=== PATIENT | female | born 1945 | race Caucasian/White ===

== ENCOUNTER 2016-12-13 16:20 | Inpatient (IN) ==
[2016-12-13] MEDS ORDERED: 0.9 % Sodium Chloride 500 ML IV ONE (16:30)
--- NOTE | 2016-12-13 17:06 | Emergency Department Note ---
Disposition Clinical Impression: Anemia, DKA (diabetic ketoacidoses), GI bleed Disposition: Admitted As Inpatient Condition: Serious Time of Disposition: 17:55 SOB HPI - General Chief Complaint: ED Nausea/Vomiting/Diarrhea Stated Complaint: Hyperglycemia / N/V/D Time Seen by Provider: 12/13/16 16:27 Source: patient, EMS Mode of arrival: ambulatory Limitations: no limitations Nursing Notes Reviewed: Yes Vital Signs Reviewed: Yes - History of Present Illness 71-year-old female with history of metastatic breast cancer presents from Dr. Lyn at the cancer center with shortness of breath and low hemoglobin. She reportedly had a significant episode of epistaxis which lasted about 5 hours and resolved at home without evaluation 5 days ago. Since then, the patient has been very weak and short of breath. She denies any headache or confusion, syncope, chest pain, abdominal pain, change in urination. She does note dark stools, but believes that this is due to iron supplementation. She notes that she had a normal colonoscopy within the last [address] Santos. Her son states that she has been very weak over the last few days, but has refused to come in for evaluation. She also has been very short of breath, but told him that she did not want to tell her doctor about it because he might try to put her on oxygen. Pt Subjective Complaint: shortness of breath - Related Data Home Medications Medication Instructions Recorded Confirmed Albuterol Sulfate [Proair HFA] 2 puff IH Q6HR PRN 06/12/15 12/13/16 Amlodipine Besylate [Norvasc] 5 mg PO DAILY 06/12/15 12/13/16 Atorvastatin [Lipitor] 40 mg PO HS 06/12/15 12/13/16 GlyBURIDE [Diabeta] 5 mg PO BID 06/12/15 12/13/16 LevETIRAcetam [Keppra] 500 mg PO BID 06/12/15 12/13/16 Metformin HCl [Glucophage] 500 mg PO DAILY 06/12/15 12/13/16 Omeprazole [PriLOSEC] 20 mg PO DAILY 06/12/15 12/13/16 Ondansetron HCl [Zofran] 8 mg PO Q8H PRN 06/12/15 12/13/16 Sertraline HCl [Zoloft] 150 mg PO DAILY 06/12/15 12/13/16 Triamterene/Hydrochlorothiazid 1 each PO DAILY 06/12/15 12/13/16 [Dyazide 37.5-25 Capsule] Warfarin [Coumadin] 5 mg PO 1800 06/12/15 12/13/16 Anastrozole [Arimidex] 1 mg PO DAILY 12/13/16 12/13/16 Dexamethasone [Decadron] 8 mg PO BID 12/13/16 12/13/16 Ferrous Sulfate 325 mg PO DAILY 12/13/16 12/13/16 Previous Rx's Medication Instructions Recorded Denosumab [Xgeva] 120 mg SQ AD #6 / 06/22/15 Cyanocobalamin (Vitamin B-12) 1,000 mcg PO DAILY #90 tablet 02/09/16 [Vitamin B-12] Meclizine [Antivert] 25 mg PO TID PRN #30 tablet 02/29/16 Budesonide/Formoterol 160/4.5 1 puff IH BIDR #3 hfa.aer.ad 05/19/16 [Symbicort 160/4.5] LORazepam [Ativan] 1 mg PO Q6H PRN #60 tablet 05/19/16 Cholecalciferol (D-3) [Vitamin D] 1,000 unit PO DAILY #90 tablet 06/22/16 GuaiFENesin/Dextromethorphan 5 ml PO Q4HR PRN #250 ml 07/29/16 [Robitussin/DM] Calcium Carbonate/Vitamin D3 2 each PO DAILY #180 tablet 09/29/16 [Calcium 600-Vit D3 800 Tablet] Benzonatate [Tessalon] 100 mg PO TID #90 capsule 11/14/16 Folic Acid 1 mg PO DAILY #90 tablet 11/14/16 OxyCODONE/APAP 10/325 [Percocet 1 - 2 each PO Q4HR PRN #120 tablet 12/06/16 10/325 MG] Allergies Allergy/AdvReac Type Severity Reaction Status Date / Time Cephalosporins Allergy See Verified 06/21/16 07:28 Comments codeine Allergy See Verified 06/21/16 07:28 Comments lisinopril Allergy See Verified 06/21/16 07:28 Comments metoclopramide [From Reglan] Allergy Confusion Verified 06/21/16 07:28 Penicillins Allergy Hives Verified 06/21/16 07:28 Sulfa (Sulfonamide Allergy See Verified 06/21/16 07:28 Antibiotics) Comments All systems ED: reviewed and negative except as stated. Past Medical History - Past Medical History Attestation: Yes The following information was validated with the patient. Source: patient Medical history: Reports: cancer, diabetes, hypertension Surgical history: Reports: appendectomy, cholecystectomy, hysterectomy, orthopedic, other, YANET/BSO Psychiatric history: Reports: no psych history MANAGER CABLE history: Reports: no MANAGER CABLE history - Social History Smoking Status: Former smoker Smokeless Tobacco Status: No Alcohol use: Reports: none Drug use: Reports: none Physical Exam - Head Head exam: atraumatic, normocephalic, normal inspection - Eye Eye exam: Present: conjunctival pallor, PERRL, EOMI - ENT ENT exam: normal exam, normal oropharynx, mucous membranes moist - Neck Neck exam: Present: normal inspection, full ROM, trachea midline - Chest Chest inspection: Present: normal inspection, symmetric chest wall rise - Respiratory Respiratory exam: Clear to auscultation bilaterally without wheezes rales or rhonchi Cardiovascular Cardiovascular exam: Present: Tachycardic at 100-110, normal rhythm, normal heart sounds - Abdominal Exam Abdominal exam: Present: soft, Non-Tender. Absent: tenderness, distention, guarding, rebound, rigidity Stool dark. - Extremities Exam Extremities exam: Present: normal inspection, full ROM - Expanded Lower Extremity Exam Hip/Pelvis exam: Present: normal inspection, full ROM - Back Exam Back exam: Present: normal inspection, full ROM. Absent: tenderness, CVA tenderness (R), CVA tenderness (L) - Neurological Exam Neurological exam: Present: alert, oriented X3, CN II-XII intact - Psychiatric Psychiatric exam: Present: normal affect, normal mood - Skin Skin exam: Present: warm, dry, intact, normal color - General Limitations: no limitations General appearance: alert Course - Reevaluation(s) Reevaluation #1: Notified by oncologist protein purification scientist Dr. Keyes of elevated outpatient INR of 4.9. I notified her of the patient's melanotic stool and low hemoglobin. She requested that I give the patient cryoprecipitate. We will also give vitamin K along with the pRBCs. Time: 17:29 Reevaluation #2: Patient in DKA with appropriate respiratory compensation. Given the patient is receiving blood products we will proceed with cautious fluid administration along with insulin drip. We do not wish to place the patient into congestive heart failure. I discussed the patient's condition with her and her son. They agree that the patient is not to be placed on a ventilator under any circumstances. They do state that she could have CPR if indicated. Time: 17:52 Reevaluation #3: Accepted by Dr. Gonzalez. Time: 18:28 Vital Signs Temperature 97.8 F 12/13/16 16:29 Pulse Rate 115 12/13/16 16:29 Respiratory Rate 20 12/13/16 16:29 Blood Pressure 148/69 12/13/16 16:29 O2 Sat by Pulse Oximetry 100 12/13/16 16:29 Temperature 97.5 F L 12/13/16 18:17 Pulse Rate 121 12/13/16 18:17 Respiratory Rate 20 12/13/16 18:17 Blood Pressure 122/55 12/13/16 18:17 O2 Sat by Pulse Oximetry 100 12/13/16 18:02 Oxygen Delivery Oxygen Delivery Room Air Shortness of Breath/Dyspnea - Lab Data Result diagrams: 12/13/16 17:10 12/13/16 17:10 Lab Results 12/13/16 12/13/16 12/13/16 Range/Units 15:49 16:36 17:10 WBC 17.6 H (4.3-11.1) K/mcL RBC 1.29 L (3.82-4.97) M/mcL Hgb 3.7 L* (11.5-15.4) g/dL Hct 11.8 L* (35.3-44.9) % MCV 91.5 (83.0-100.0) fL MCH 28.7 (28.0-33.3) pg MCHC 31.4 L (31.6-35.5) g/dL RDW 22.9 H (11.5-14.5) % Plt Count 260 (140-400) K/mcL MPV 10.3 (9.4-12.4) fL Seg Neutrophils % 92.0 % Lymphocytes % 2.0 % Monocytes % 6.0 % Neutrophils # 16.2 H (1.6-8.9) K/mcL Lymphocytes # 0.4 L (0.6-4.6) K/mcL Monocytes # 1.1 (0.0-1.3) K/mcL Polychromasia 1+ A (Not Present) Anisocytosis 2+ A (Not Present) Microcytosis Present A (Not Present) VBG pH (7.32-7.42) pH Units VBG pCO2 (41-51) mmHg VBG pO2 (25-40) mmHg VBG HCO3 (21-27) mEq/L Sodium (136-145) mEq/L Potassium (3.5-4.5) mEq/L Chloride (98-109) mEq/L Carbon Dioxide (19-29) mEq/L BUN (7-20) mg/dL Creatinine (0.57-1.11) mg/dL Est GFR ( Amer) (> 60) Est GFR (Non-Af Amer) (> 60) BUN/Creatinine Ratio (6-26) Glucose (70-99) mg/dL Calculated Osmolality (280-300) Calcium (8.6-10.8) mg/dL Troponin I (0-0.03) ng/mL B-Natriuretic Peptide (0-100) pg/mL Beta-Hydroxybutyric Acd (0.02-0.27) mmol/L Urine Color (Yellow) Urine Clarity (Clear) Urine pH (5.0-8.0) pH Units Ur Specific [place] (1.010-1.025) Urine Protein (Neg-Trace) mg/dL Urine Glucose (UA) (Normal) mg/dL Urine Ketones (Negative) mg/dL Urine Blood (Negative) Urine Nitrite (Negative) Urine Bilirubin (Negative) Urine Urobilinogen (Normal) mg/dL Ur Leukocyte Esterase (Negative) Ur Culture Indicated? (NO) Stool Occult Blood Positive A (Negative) Crossmatch See Detail 12/13/16 12/13/16 12/13/16 Range/Units 17:10 17:10 17:10 WBC (4.3-11.1) K/mcL RBC (3.82-4.97) M/mcL Hgb (11.5-15.4) g/dL Hct (35.3-44.9) % MCV (83.0-100.0) fL MCH (28.0-33.3) pg MCHC (31.6-35.5) g/dL RDW (11.5-14.5) % Plt Count (140-400) K/mcL MPV (9.4-12.4) fL Seg Neutrophils % % Lymphocytes % % Monocytes % % Neutrophils # (1.6-8.9) K/mcL Lymphocytes # (0.6-4.6) K/mcL Monocytes # (0.0-1.3) K/mcL Polychromasia (Not Present) Anisocytosis (Not Present) Microcytosis (Not Present) VBG pH (7.32-7.42) pH Units VBG pCO2 (41-51) mmHg VBG pO2 (25-40) mmHg VBG HCO3 (21-27) mEq/L Sodium 129 L (136-145) mEq/L Potassium 3.4 L (3.5-4.5) mEq/L Chloride 94 L (98-109) mEq/L Carbon Dioxide 12 L (19-29) mEq/L BUN 33 H (7-20) mg/dL Creatinine 1.20 H (0.57-1.11) mg/dL Est GFR ( Amer) 53 L (> 60) Est GFR (Non-Af Amer) 44 L (> 60) BUN/Creatinine Ratio 28 H (6-26) Glucose 614 H* (70-99) mg/dL Calculated Osmolality 304 H (280-300) Calcium 8.5 L (8.6-10.8) mg/dL Troponin I 0.07 H* (0-0.03) ng/mL B-Natriuretic Peptide 583 H (0-100) pg/mL Beta-Hydroxybutyric Acd (0.02-0.27) mmol/L Urine Color (Yellow) Urine Clarity (Clear) Urine pH (5.0-8.0) pH Units Ur Specific [place] (1.010-1.025) Urine Protein (Neg-Trace) mg/dL Urine Glucose (UA) (Normal) mg/dL Urine Ketones (Negative) mg/dL Urine Blood (Negative) Urine Nitrite (Negative) Urine Bilirubin (Negative) Urine Urobilinogen (Normal) mg/dL Ur Leukocyte Esterase (Negative) Ur Culture Indicated? (NO) Stool Occult Blood (Negative) Crossmatch 12/13/16 12/13/16 12/13/16 Range/Units 17:10 17:10 17:23 WBC (4.3-11.1) K/mcL RBC (3.82-4.97) M/mcL Hgb (11.5-15.4) g/dL Hct (35.3-44.9) % MCV (83.0-100.0) fL MCH (28.0-33.3) pg MCHC (31.6-35.5) g/dL RDW (11.5-14.5) % Plt Count (140-400) K/mcL MPV (9.4-12.4) fL Seg Neutrophils % % Lymphocytes % % Monocytes % % Neutrophils # (1.6-8.9) K/mcL Lymphocytes # (0.6-4.6) K/mcL Monocytes # (0.0-1.3) K/mcL Polychromasia (Not Present) Anisocytosis (Not Present) Microcytosis (Not Present) VBG pH 7.33 (7.32-7.42) pH Units VBG pCO2 28 L (41-51) mmHg VBG pO2 70 H (25-40) mmHg VBG HCO3 14.8 L (21-27) mEq/L Sodium (136-145) mEq/L Potassium (3.5-4.5) mEq/L Chloride (98-109) mEq/L Carbon Dioxide (19-29) mEq/L BUN (7-20) mg/dL Creatinine (0.57-1.11) mg/dL Est GFR ( Amer) (> 60) Est GFR (Non-Af Amer) (> 60) BUN/Creatinine Ratio (6-26) Glucose (70-99) mg/dL Calculated Osmolality (280-300) Calcium (8.6-10.8) mg/dL Troponin I (0-0.03) ng/mL B-Natriuretic Peptide (0-100) pg/mL Beta-Hydroxybutyric Acd 0.44 H (0.02-0.27) mmol/L Urine Color Yellow (Yellow) Urine Clarity Clear (Clear) Urine pH 5.0 (5.0-8.0) pH Units Ur Specific [place] 1.021 (1.010-1.025) Urine Protein Negative (Neg-Trace) mg/dL Urine Glucose (UA) >=1000 H (Normal) mg/dL Urine Ketones Negative (Negative) mg/dL Urine Blood Negative (Negative) Urine Nitrite Negative (Negative) Urine Bilirubin Negative (Negative) Urine Urobilinogen Normal (Normal) mg/dL Ur Leukocyte Esterase Negative (Negative) Ur Culture Indicated? NO (NO) Stool Occult Blood (Negative) Crossmatch - EKG Data EKG attestation: Yes I reviewed and interpreted this EKG. EKG results narrative: Atrial fibrillation at 114 with normal axis. There is diffuse ST depression without any elevation. No old EKG available. Critical Care Time Critical Care Time: Yes Total Critical Care Time: 40 Attestation: Critical care performed: Time is exclusive of separately billable procedures. Time includes: direct patient care, patient reassessment, coordination of patient care, interpretation of data (laboratory data, radiology data, and respiratory data), review of patient's medical records, medical consultation and documentation of patient care. Procedures included in critical care time: Procedures excluded from critical care time: Attestation Statement - Attestation Attestation: I examined this patient and my medical decision-making was reviewed with the MECHANICAL ENGINEERING TECHNOLOGIST/PA/Advanced Practice Nurse/Resident Physician. I agree with the documented findings, disposition and treatment plan as described except to the extent set forth below. Patient presents to the emergency department complaining of shortness of breath. She was sent over from the cancer center. Just on to have a low hemoglobin and a high INR there. Patient currently being treated for lung cancer. She is on Coumadin for A. fib. On exam she is awake and alert. Tachypneic and appears short of breath. Lungs clear. Abdomen soft. She has a port in the left upper chest. Pale conjunctiva. Plan. Type and cross and transfuse. Rectal exam shows black stool. Hemoccult still pending at this time. Admission. Patient with GI bleed and Hemoccult-positive stools. Blood is being transfused at this time. Hemoptic is requesting PCC. Insulin drip ordered as well for DKA. Patient admitted to medicine.
[2016-12-13 17:24] LABS: VBG HCO3 14.8 mEq/L (21-27); VBG PH 7.33 pH Units (7.32-7.42)
[2016-12-13 17:28] LABS: Mean Corpuscular HGB Conc 31.4 g/dL (31.6-35.5); Mean Corpuscular Hemoglobin 28.7 pg (28.0-33.3); Mean Corpuscular Volume 91.5 fL (83.0-100.0); Mean Platelet Volume 10.3 fL (9.4-12.4); Platelet Count 260 K/mcL (140-400); Red Blood Count 1.29 M/mcL (3.82-4.97); Red Cell Distribution Width 22.9 % (11.5-14.5)
[2016-12-13 17:29] LABS: Bilirubin,Urine Negative (Negative); Blood,Urine Negative (Negative); Clarity,Urine Clear (Clear); Color,Urine Yellow (Yellow); Glucose,Urine (UA) >=1000 mg/dL (Normal); Ketones,Urine Negative (Negative); Leukocyte Esterase,Urine Negative (Negative); Nitrite,Urine Negative (Negative); Protein,Urine Negative (Neg-Trace); Specific Gravity,Urine 1.021 (1.010-1.025); Urobilinogen,Urine Normal (Normal)
[2016-12-13 17:31] LABS: Hematocrit 11.8 % (35.3-44.9); Hemoglobin 3.7 g/dL (11.5-15.4)
[2016-12-13 17:39] LABS: Calcium 8.5 mg/dL (8.6-10.8); Potassium 3.4 mEq/L (3.5-4.5)
[2016-12-13] MEDS ORDERED: *HR* Phytonadione 10 MG/ML AMPUL SQ ONE (17:41)
[2016-12-13 17:45] LABS: Neutrophils # 16.2 K/mcL (1.6-8.9)
[2016-12-13 17:47] LABS: Lymphocytes # 0.4 K/mcL (0.6-4.6); Monocytes # 1.1 K/mcL (0.0-1.3)
[2016-12-13 17:48] LABS: Anisocytosis 2+ (Not Present); Microcytosis Present (Not Present); Polychromasia 1+ (Not Present)
[2016-12-13] MEDS ORDERED: *HR* Dextrose 50 % in Water (Syg) 50 ML SYRINGE IVP PRN (17:49)
[2016-12-13] MEDS ORDERED: 0.9 % Sodium Chloride 250 ML ONE (17:53)
[2016-12-13] MEDS ORDERED: Insulin Human Regular 100 UNIT in 0.9 % Sodium Chloride 100 ML IVC SCH (18:00)
[2016-12-13] MEDS ORDERED: 0.45 % Sodium Chloride w/KCl 20 MEQ/1,000 ML MLS IVC SCH (18:45)
[2016-12-13] MEDS ORDERED: Pantoprazole 40 MG VIAL IVP ONE (18:59)
[2016-12-13] MEDS ORDERED: Ondansetron 4 MG/2 ML VIAL IVP PRN (19:35)
[2016-12-13] MEDS ORDERED: Acetaminophen 650 MG RECTAL SUPP RC PRN (19:35)
[2016-12-13] MEDS ORDERED: Mag Hydrox/Al Hydrox/Simeth 30 ML UDC PO PRN (19:35)
[2016-12-13] MEDS ORDERED: *HR* OxyCODONE Immed Rel 5 MG TABLET PO PRN (19:35)
[2016-12-13] MEDS ORDERED: Pantoprazole 40 MG VIAL IVP STA (19:35)
[2016-12-13] MEDS ORDERED: *HR* LORazepam 2 MG/ML VIAL IVP PRN (19:35)
[2016-12-13] MEDS ORDERED: *HR* Morphine 2 MG/ML SYRINGE IVP PRN (19:35)
[2016-12-13] MEDS ORDERED: Acetaminophen 325 MG TABLET PO PRN (19:35)
[2016-12-13] MEDS ORDERED: Naloxone 0.4 MG/ML INJ IVP PRN ×2 (19:35)
[2016-12-13] MEDS ORDERED: Octreotide 50 MCG/ML SYRINGE IVP ONE (19:35)
[2016-12-13] MEDS ORDERED: D5% in 0.45% NACL 1,000 ML IVC PRN (20:05)
[2016-12-13] MEDS ORDERED: Albuterol 2.5 MG/3 ML NEBULIZER IH PRN (20:05)
[2016-12-13] MEDS ORDERED: Insulin Regular, Human 100 UNIT/ML IV PRN ×2 (20:05)
[2016-12-13] MEDS ORDERED: 0.9 % Sodium Chloride w KCl 20 MEQ/1,000 ML MLS IVC PRN ×2 (20:15)
--- NOTE | 2016-12-13 20:23 | Internal Med History&Physical ---
Date of Encounter: 12/13/16 Time of Encounter: 19:00 Assessment and Plan (1) Acute blood loss anemia Status: Acute . (2) Symptomatic anemia Status: Acute . (3) Hyperosmolar non-ketotic state in patient with type 2 diabetes mellitus Status: Resolved . (4) Acute hyperglycemia Status: Acute . (5) Coumadin toxicity Status: Resolved . Qualifiers: Encounter type: initial encounter Injury intent: accidental or unintentional Qualified Code(s): T45.511A - Poisoning by anticoagulants, accidental (unintentional), initial encounter (6) Severe epistaxis Status: Acute . (7) Metastatic breast cancer Status: Chronic . (8) Cancer related pain Status: Chronic . (9) Acute kidney injury superimposed on CKD Status: Acute . (10) Systemic inflammatory response syndrome (SIRS) associated with organ dysfunction Status: Acute . (11) Demand ischemia of myocardium Status: Acute . (12) Ischemia due to increased oxygen demand Status: Acute . (13) Antiphospholipid antibody syndrome Status: Chronic . (14) Bone metastases Status: Chronic . (15) COPD (chronic obstructive pulmonary disease) Status: Chronic .. Qualifiers: COPD type: unspecified COPD Qualified Code(s): J44.9 - Chronic obstructive pulmonary disease, unspecified Internal Medicine - H&P: HPI Chief complaint: Symptomatic acute blood loss anemia Admitted From: Emergency Dept Plans for Post Hospital Care: Home History of present illness: Ms. Mars is a 71 year old female with significant history of metastatic non- small cell lung carcinoma to bone+biologic palliative therapy(Xgeva)+carboplatin +Alimta+palliative radiation to hips/RUL mass/ with synchronous right-sided breast cancer (grade 1 invasive ductal carcinoma, ER/WI positive, HER-2 negative )s/p right lumpectomy +axillarySNB+ adjuvant endocrine therapy(Arimidex), COPD, depression-anxiety, osteoarthritis, osteoporosis, antiphospholipid syndrome, chronic anticoagulation (warfarin), H/O CVA/TIAs, NID type 2 DM, hypertension, dyslipidemia, former smoker The patient was visited and interviewed and examined. The patient was found during the oncology office consultative visit to be acutely ill with concern for acute DKA and was sent to the emergency department for further evaluation and disposition. This laboratory in the oncology office setting showed a blood glucose elevated at 562. The patient acknowledges not taking her glyburide or metformin the morning of clinic visit due to the illness. Hemoglobin also was noted to be severely diminished at 3.8 with a white blood cell count elevated at 19.6 hemoglobin has 11/25/2015 was measured at 10.7. Acutely ill today with complaints of nausea vomiting diarrhea confusion postural dizziness and tremulousness upper extremities and feelings of cold intolerance. He experienced a severe nosebleed 5 days earlier. It bled on and off the entire day. She also acknowledged dark stools. She thought this to be due to her long-standing iron supplementation. She denied any gross bright red blood per rectum or melanotic stools. From that point forward her feelings of listlessness and easy fatigability and shortness of breath became more apparent. Findings in the ED: Temperature 97.8 pulse 100- 121 respiration 20. BP 122-148/50-69. O2 saturation 100% room air. WBC 17.6 hemoglobin 3.7 hematocrit 11.8. MCHC 31.4. Platelets 260,000. RDW 22.9. Differential shows an increase in neutrophils. Stool occult blood positive. INR measurement 4.9. Metabolic panel sodium 129 potassium 3.4 chloride 94. Carbon dioxide 12. BUN 33 creatinine 1.2 GFR 44. Glucose 614 osmolality 304. Calcium 8.5. Troponin 0.07 BNP 583. Venous blood gas pH 7.33 PCO2 28 PO2 70 bicarbonate 14.8. Beta hydroxybutyric acid 0.44. Urinalysis notes large glucose. EKG notes atrial fibrillation at 114. Normal axis. Diffuse ST depression without elevation. Baseline artifact. Chest x-ray demonstrated no acute or active cardiopulmonary process. Preliminary impression suggests severe , symptomatic, acute blood loss (epistaxis)/ chronic (iron deficiency) anemia in patient receiving long-term anticoagulation therapy(Warfarin) for antiphospholipid syndrome. Measurement of INR associated with that presentation was elevated. Systemic inflammatory response syndrome is present at the time of admission. Differential again the large flight arrangements are also apparent due to acute hyperosmolar nonketotic hyperglycemia. Toxic metabolic encephalopathy with mild delirium was present at admission consistent with HHS without coma. Metabolic acidemia, DEO/CKD, and demand ischemia type II NSTEMI+flash pulmonary edema also associated in this presentation. The patient presents increased risk for further acute clinical decline and morbidity given this presenting chief complaint and her associated comorbidities in the setting of evolving multiorgan derangements.. Cumulative laboratory and radiographic data base was reviewed, considered and discussed. Pertinent ancillary medical records including ECW and PCI documentation was reviewed and considered. Given the patient's presenting concerns, past medical history, clinical findings and symptoms, she is admitted at this time will undergo further evaluation and disposition. Orders were written as per the computerized physician customs and border protection inspector system.......................................................................... .................... Consultative opinions will be sought as clinical circumstances justify. Pain management needs will be addressed. Laboratory and radiographic data base will be updated as appropriate. Studies include: Cultures blood urine and sputum, CPK, cardiac injury panel, BNP, coag profiles, metabolic and hematologic panel, magnesium, phosphorus, ionized calcium, thyroid panel, lipid profile, A1c, C-peptide, CRP, sedimentation rate, lactic acid, blood gas, UA, type and screen, trending H/Hs, UA, serologies, etc. Precautions: Aspiration, fall, delirium protocol/surveillance initiated. Telemetry with continuous hemodynamic monitoring and pulse oximetry initiated. Orthostatic vital signs. Strict input and output measurements with daily weights. Empiric antibiotic coverage: pending culture data. Special studies: chest x-ray, telemetry, EKG, CT abd/pelvis. Bowel rest. Nothing by mouth except for ice chips and sips of water for mandatory medications. Gentle rehydration therapy to be emphasized along with correction of metabolic and acid-base deficits. Trending hemoglobin and hematocrit measurements every 6 hours. Intravenous Protonix loading dose plus Protonix drip initiated. Intravenous octreotide loading dose plus octreotide drip initiated. Intravenous packed red blood cell infusions (4 units total)+ 2 units fresh frozen plasma+ 1 unit of cryoprecipitate. Goal hemoglobin greater than 8.0 with stable hemodynamics. Pulmonary toilet: Incentive spirometry, aerosol bronchodilator, mucolytic, antitussive, supplemental oxygen. Corticosteroid therapy. CPAP/BiPAP supplemental oxygen delivery prn. Aerosol Mucomyst therapy prn. Fluid and electrolyte repletion efforts will proceed. Careful attention to fluid balance and renal recovery will be emphasized. Avoidance of nephrotoxic exposure and adverse drug drug interaction in the setting of impaired renal function will be monitored closely. Acute coronary syndrome protocol/surveillance initiated. DVT and PUD prophylaxis initiated: PPI therapy, intermittent pneumatic cuffs/ TEDs. Therapeutic SQ heparin/Lovenox/ oral A/C therapy was held due to current active bleeding. Early ambulation will be encouraged. Immunization updates recommended. Influenza and pneumococcal vaccinations as part of ongoing preventative healthcare recommendations strongly recommended. Smoking cessation counseling briefly addressed. Patient is a former smoker. Advanced care directive discussion briefly addressed. Patient does not declare any healthcare restrictions at this time. Cardiovascular risk appraisal and cardiovascular risk reduction efforts will be emphasized. Physical and occupational therapy consulted to evaluate/assess patient's functional capacity and progress mobility as circumstances permit. DKA/HHS protocol/surveillance initiated. Intravenous insulin drip therapy/ guidelines initiated. Fluid and electrolyte repletion efforts progressing. Electrolyte replacement protocols initiated. IV fluid rehydration protocol was initiated. Pending stabilization of blood glucose measurements and acid-base and metabolic balance the patient will be initiated on sliding scale insulin/basal coverage. ADA dietary restraint and scheduled and as-needed basis fingerstick glucose assessments will be initiated. Nutrition/diabetes education counseling may be considered as circumstances justify. Outpatient medication schedules will be reviewed confirmed and facilitated as appropriate. Reconciliation of home treatments including adjustments, substitutions and reintroduction into the treatment regimen will address necessary maintenance therapies for chronic pre-existing medical conditions. Plan of care has been reviewed and discussed in detail with the patient. Questions addressed. Hospital course will depend upon clinical findings, treatment response and potential consultative interventions. Patient is at risk for further acute clinical decline and due to her age, chief complaints and comorbidities in the setting of multiorgan derangements.. Condition is serious. Prognosis is guarded. CODE STATUS is full. Past Med Surg Social Fam HX - Past Medical History Source: old records reviewed Medical history: arthritis, asthma, cancer (Invasive ductal carcinoma. Synchronous metastatic lung cancer.), COPD, CVA, DVT, diabetes, GERD, GI bleed ( Peptic ulcer disease history. External hemorrhoids. Diverticular disease.), hyperlipidemia, hypertension, malignancy (Metastatic breast cancer and synchronous metastatic lung cancer.), osteoporosis, seizures, TIA, other ( Positional dizziness/vertigo. Antiphospholipid antibody syndrome. Long- standing chronic warfarin therapy.) Psychiatric history: anxiety, depression, other - Past Surgical History Surgical History: appendectomy, breast surgery, cancer surgery, cataract, cholecystectomy, hysterectomy, orthopedic, other, YANET/BSO, other (Surgery 2 at ages 1 and 10. Total abdominal bilateral salpingo-oophorectomy and hysterectomy 1977. Appendectomy. Laparoscopic cholecystectomy 1999. Cardiac catheterization 1998. Pre-needle localization, excisional biopsy left breast 1996-benign. Shoulder replacement surgeries 2009 2010. PML/excision carcinoma right breast with pathology analysis margins (partial mastectomy) and right axillary node biopsy 2014. Colonoscopy.) - Social History Smoking Status: Former smoker Smokeless Tobacco Status: No Alcohol use: none Drug use: none Occupational status: retired Current living situation: Home - Independent Activity Level: Independent ambulation, Mostly sedentary Recent Out of Country Travel Within the Last 8 Weeks: No Exposure or Possible Exposure to Illness During Travel: No Internal Medicine - H&P: Meds Albuterol Sulfate [Albuterol Inhaler] 2 puff IH Q6HR PRN 06/12/15 [History] Amlodipine Besylate [Norvasc] 5 mg PO DAILY 06/12/15 [History] Atorvastatin [Lipitor] 40 mg PO HS 06/12/15 [History] GlyBURIDE [Diabeta] 5 mg PO BID 06/12/15 [History] LevETIRAcetam [Keppra] 500 mg PO BID 06/12/15 [History] Metformin HCl [Glucophage] 500 mg PO DAILY 06/12/15 [History] Ondansetron HCl [Zofran] 8 mg PO Q8H PRN 06/12/15 [History] Sertraline HCl [Zoloft] 150 mg PO DAILY 06/12/15 [History] Triamterene/Hydrochlorothiazid [Dyazide 37.5-25 Capsule] 1 each PO DAILY [History] Warfarin [Coumadin] 5 mg PO 1800 06/12/15 [History] Denosumab [Xgeva] 120 mg SQ AD # / 06/22/15 [Rx] Meclizine [Antivert] 25 mg PO TID PRN #30 tablet 02/29/16 [Rx] Budesonide/Formoterol 160/4.5 [Symbicort 160/4.5] 1 puff IH BIDR #3 hfa.aer.ad 05/19/16 [Rx] LORazepam [Ativan] 1 mg PO Q6H PRN #60 tablet 05/19/16 [Rx] Cholecalciferol (D-3) [Vitamin D] 1,000 unit PO DAILY #90 tablet 06/22/16 [Rx] GuaiFENesin/Dextromethorphan [Robitussin/Dm] 5 ml PO Q4HR PRN #250 ml 07/29/16 [ Rx] Calcium Carbonate/Vitamin D3 [Calcium 600-Vit D3 800 Tablet] 2 each PO DAILY # 180 tablet 09/29/16 [Rx] Benzonatate [Tessalon] 100 mg PO TID #90 capsule 11/14/16 [Rx] Folic Acid 1 mg PO DAILY #90 tablet 11/14/16 [Rx] OxyCODONE/APAP 10/325 [Percocet 10/325 MG] 1 - 2 each PO Q4HR PRN #120 tablet [Rx] Anastrozole [Arimidex] 1 mg PO DAILY 12/13/16 [History] Dexamethasone [Decadron] 8 mg PO BID 12/13/16 [History] Ferrous Sulfate 325 mg PO DAILY 12/13/16 [History] Blood-Glucose Meter [Blood Glucose Monitor] 1 each ACHS 30 Days 12/17/16 [Rx] Lancets/Blood Glucose Strips [Fora [id number] Str-Lnmd] 1 each ACHS 30 Days 12/17/16 [Rx] Omeprazole [PriLOSEC] 40 mg PO DAILY #30 12/17/16 [Rx] Saline Nasal [place] [[place] Nasal [place]] 2 spray NS QID PRN 30 Days 12/17/16 [Rx] Azithromycin [Zithromax Tri-[place]] 500 mg PO AD #1 pack 12/20/16 [Rx] Allergies Cephalosporins Allergy (Verified 12/20/16 09:00) See Comments codeine Allergy (Verified 12/20/16 09:00) See Comments lisinopril Allergy (Verified 12/20/16 09:00) See Comments metoclopramide [From Reglan] Allergy (Verified 12/20/16 09:00) Confusion Penicillins Allergy (Verified 12/20/16 09:00) Hives Sulfa (Sulfonamide Antibiotics) Allergy (Verified 12/20/16 09:00) See Comments All Systems PM: A 10-system review of systems was performed and is negative for pertinent findings except as documented above in the HPI. - Constitutional Constitutional: as per HPI, no chills, no fever(s), no night sweats - EENT Eyes: as per HPI, no change in vision, no discharge, no pain, no photophobia Ears: as per HPI, no ear discharge, no ear pain, no tinnitus Nose, mouth and throat: as per HPI, epistaxis, nasal congestion, other, no dysphagia, no nasal discharge, no neck pain, no sore throat - Constitutional Vitals: Temp Pulse Resp BP Pulse Ox 99.0 F 116 20 148/50 100 12/13/16 19:59 12/13/16 19:59 12/13/16 19:59 12/13/16 19:59 12/13/16 19:59 General appearance: Present: cooperative, mild distress, A&O X 3, answers questions appropriately - Head Head exam: Present: atraumatic, normocephalic - Eye Eye exam: Present: EOMI, PERRL, conjuntiva pink, sclera anicteric Pupils: Present: normal accommodation, PERRL - ENT ENT exam: Present: mucous membranes moist, normal external ear exam, normal oropharynx - Neck Neck exam general surgery: Present: full ROM, supple, trachea midline. Absent: lymphadenopathy, tenderness, nuchal rigidity - Respiratory Respiratory exam: Present: decreased breath sounds, CTAB. Absent: accessory muscle use, rales, rhonchi, wheezes - Cardiovascular Cardiovascular exam: Present: distant heart sounds, RRR, +S1, +S2. Absent: diastolic murmur, gallop, rubs, systolic murmur - GI/Abdominal GI/Abdominal exam: Present: normal bowel sounds, soft, no peritoneal signs. Absent: distended, tenderness - Extremities Exam Extremities exam: Present: full ROM, warm, radial pulses palpable and symetrical. Absent: calf tenderness, cyanotic, pedal edema - Neurological Exam Neurological exam: Present: alert, CN II-XII intact, oriented X3, no focal deficits. Absent: pronater drift, facial droop, speech deficit - Psychiatric Psychiatric exam: Present: normal affect, normal mood - Skin Skin exam: Present: dry, intact, warm. Absent: petechiae, rash, urticaria, vesicles Internal Med - H&P Results - Labs CBC & Chem 7: 12/17/16 03:15 12/16/16 03:20 - Impressions Vital Signs Temp Pulse Resp BP Pulse Ox 12/13/16 20:19 20 137/92 12/13/16 19:59 99.0 F 116 20 148/50 100 12/13/16 19:38 99.0 F 116 20 148/50 100 12/13/16 19:23 99.4 F 117 20 146/56 12/13/16 18:17 97.5 F L 121 20 122/55 12/13/16 18:02 97.8 F 122 20 142/48 100 12/13/16 17:54 119 20 142/66 100 12/13/16 16:34 100 12/13/16 16:29 97.8 F 115 20 148/69 100 Intake and Output 12/13/16 12/13/16 12/13/16 07:59 15:59 23:59 Intake Total 1007 / 1007 Balance 1007 / 1007 Intake: IV Fluids 500 / 500 0.9 % Sodium Chloride 500 500 / 500 ML @ 3750 mls/hr IV BOLUS ONE Rx#:[id number] Blood Product 507 / 507 Cryoprecipitate Pooled 157 / 157 Unit [id number] Rbcs Leuko Poor As-1 350 / 350 Unit [id number] Other: Weight 59.619 kg Blood Glucose* 619 Patient Weight 12/13/16 23:59 Weight 59.619 kg Short CBC 12/13/16 Range/Units 17:10 WBC 17.6 H (4.3-11.1) K/mcL Hgb 3.7 L* (11.5-15.4) g/dL Hct 11.8 L* (35.3-44.9) % Plt Count 260 (140-400) K/mcL Neutrophils # 16.2 H (1.6-8.9) K/mcL BMP 12/13/16 Range/Units 17:10 Sodium 129 L (136-145) mEq/L Potassium 3.4 L (3.5-4.5) mEq/L Chloride 94 L (98-109) mEq/L Carbon Dioxide 12 L (19-29) mEq/L BUN 33 H (7-20) mg/dL Creatinine 1.20 H (0.57-1.11) mg/dL Glucose 614 H* (70-99) mg/dL Calcium 8.5 L (8.6-10.8) mg/dL Cardiac Enzymes 12/13/16 Range/Units 17:10 Troponin I 0.07 H* (0-0.03) ng/mL Urine 12/13/16 Range/Units 17:23 Urine Color Yellow (Yellow) Urine Clarity Clear (Clear) Urine pH 5.0 (5.0-8.0) pH Units Ur Specific [place] 1.021 (1.010-1.025) Urine Protein Negative (Neg-Trace) mg/dL Urine Glucose (UA) >=1000 H (Normal) mg/dL 12/13/16 17:10 VBG pH 7.33 VBG pCO2 28 L VBG pO2 70 H VBG HCO3 14.8 L Abnormal lab results WBC 17.6 K/mcL (4.3-11.1) H 12/13/16 17:10 RBC 1.29 M/mcL (3.82-4.97) L 12/13/16 17:10 Hgb 3.7 g/dL (11.5-15.4) L* 12/13/16 17:10 Hct 11.8 % (35.3-44.9) L* 12/13/16 17:10 MCHC 31.4 g/dL (31.6-35.5) L 12/13/16 17:10 RDW 22.9 % (11.5-14.5) H 12/13/16 17:10 Neutrophils # 16.2 K/mcL (1.6-8.9) H 12/13/16 17:10 Lymphocytes # 0.4 K/mcL (0.6-4.6) L 12/13/16 17:10 Polychromasia 1+ (Not Present) A 12/13/16 17:10 Anisocytosis 2+ (Not Present) A 12/13/16 17:10 Microcytosis Present (Not Present) A 12/13/16 17:10 VBG pCO2 28 mmHg (41-51) L 12/13/16 17:10 VBG pO2 70 mmHg (25-40) H 12/13/16 17:10 VBG HCO3 14.8 mEq/L (21-27) L 12/13/16 17:10 Sodium 129 mEq/L (136-145) L 12/13/16 17:10 Potassium 3.4 mEq/L (3.5-4.5) L 12/13/16 17:10 Chloride 94 mEq/L (98-109) L 12/13/16 17:10 Carbon Dioxide 12 mEq/L (19-29) L 12/13/16 17:10 BUN 33 mg/dL (7-20) H 12/13/16 17:10 Creatinine 1.20 mg/dL (0.57-1.11) H 12/13/16 17:10 Est GFR ( Amer) 53 (> 60) L 12/13/16 17:10 Est GFR (Non-Af Amer) 44 (> 60) L 12/13/16 17:10 BUN/Creatinine Ratio 28 (6-26) H 12/13/16 17:10 Glucose 614 mg/dL (70-99) H* 12/13/16 17:10 POC Glucose 445 (58-89) H* 12/13/16 20:12 Calculated Osmolality 304 (280-300) H 12/13/16 17:10 Calcium 8.5 mg/dL (8.6-10.8) L 12/13/16 17:10 Troponin I 0.07 ng/mL (0-0.03) H* 12/13/16 17:10 B-Natriuretic Peptide 583 pg/mL (0-100) H 12/13/16 17:10 Beta-Hydroxybutyric Acd 0.44 mmol/L (0.02-0.27) H 12/13/16 17:10 Urine Glucose (UA) >=1000 mg/dL (Normal) H 12/13/16 17:23 Stool Occult Blood Positive (Negative) A 12/13/16 16:36 Cephalosporins Allergy (Verified 06/21/16 07:28) See Comments codeine Allergy (Verified 06/21/16 07:28) See Comments lisinopril Allergy (Verified 06/21/16 07:28) See Comments metoclopramide [From Reglan] Allergy (Verified 06/21/16 07:28) Confusion Penicillins Allergy (Verified 06/21/16 07:28) Hives Sulfa (Sulfonamide Antibiotics) Allergy (Verified 06/21/16 07:28) See Comments Laboratory Results WBC 17.6 K/mcL (4.3-11.1) H 12/13/16 17:10 RBC 1.29 M/mcL (3.82-4.97) L 12/13/16 17:10 Hgb 3.7 g/dL (11.5-15.4) L* 12/13/16 17:10 Hct 11.8 % (35.3-44.9) L* 12/13/16 17:10 MCV 91.5 fL (83.0-100.0) 12/13/16 17:10 MCH 28.7 pg (28.0-33.3) 12/13/16 17:10 MCHC 31.4 g/dL (31.6-35.5) L 12/13/16 17:10 RDW 22.9 % (11.5-14.5) H 12/13/16 17:10 Plt Count 260 K/mcL (140-400) 12/13/16 17:10 MPV 10.3 fL (9.4-12.4) 12/13/16 17:10 Seg Neutrophils % 92.0 % 12/13/16 17:10 Lymphocytes % 2.0 % 12/13/16 17:10 Monocytes % 6.0 % 12/13/16 17:10 Neutrophils # 16.2 K/mcL (1.6-8.9) H 12/13/16 17:10 Lymphocytes # 0.4 K/mcL (0.6-4.6) L 12/13/16 17:10 Monocytes # 1.1 K/mcL (0.0-1.3) 12/13/16 17:10 Polychromasia 1+ (Not Present) A 12/13/16 17:10 Anisocytosis 2+ (Not Present) A 12/13/16 17:10 Microcytosis Present (Not Present) A 12/13/16 17:10 VBG pH 7.33 pH Units (7.32-7.42) 12/13/16 17:10 VBG pCO2 28 mmHg (41-51) L 12/13/16 17:10 VBG pO2 70 mmHg (25-40) H 12/13/16 17:10 VBG HCO3 14.8 mEq/L (21-27) L 12/13/16 17:10 Sodium 129 mEq/L (136-145) L 12/13/16 17:10 Potassium 3.4 mEq/L (3.5-4.5) L 12/13/16 17:10 Chloride 94 mEq/L (98-109) L 12/13/16 17:10 Carbon Dioxide 12 mEq/L (19-29) L 12/13/16 17:10 BUN 33 mg/dL (7-20) H 12/13/16 17:10 Creatinine 1.20 mg/dL (0.57-1.11) H 12/13/16 17:10 Est GFR ( Amer) 53 (> 60) L 12/13/16 17:10 Est GFR (Non-Af Amer) 44 (> 60) L 12/13/16 17:10 BUN/Creatinine Ratio 28 (6-26) H 12/13/16 17:10 Glucose 614 mg/dL (70-99) H* 12/13/16 17:10 POC Glucose 445 (58-89) H* 12/13/16 20:12 Calculated Osmolality 304 (280-300) H 12/13/16 17:10 Calcium 8.5 mg/dL (8.6-10.8) L 12/13/16 17:10 Troponin I 0.07 ng/mL (0-0.03) H* 12/13/16 17:10 B-Natriuretic Peptide 583 pg/mL (0-100) H 12/13/16 17:10 Beta-Hydroxybutyric Acd 0.44 mmol/L (0.02-0.27) H 12/13/16 17:10 Urine Color Yellow (Yellow) 12/13/16 17:23 Urine Clarity Clear (Clear) 12/13/16 17:23 Urine pH 5.0 pH Units (5.0-8.0) 12/13/16 17:23 Ur Specific [place] 1.021 (1.010-1.025) 12/13/16 17:23 Urine Protein Negative mg/dL (Neg-Trace) 12/13/16:23 Urine Glucose (UA) >=1000 mg/dL (Normal) H 12/13/16 17:23 Urine Ketones Negative mg/dL (Negative) 12/13/16 17:23 Urine Blood Negative (Negative) 12/13/16 17:23 Urine Nitrite Negative (Negative) 12/13/16 17:23 Urine Bilirubin Negative (Negative) 12/13/16 17:23 Urine Urobilinogen Normal mg/dL (Normal) 12/13/16 17:23 Ur Leukocyte Esterase Negative (Negative) 12/13/16 17:23 Ur Culture Indicated? NO (NO) 12/13/16 17:23 Stool Occult Blood Positive (Negative) A 12/13/16 16:36 Crossmatch See Detail 12/13/16 15:49 Impressions Chest X-Ray 12/13/16 16:29 IMPRESSION: No acute process. D/ / Brennan Tong MD / Brennan Tong MD Interpreting Provider: Brennan Tong MD
[2016-12-13 20:53] LABS: VBG HCO3 21.2 mEq/L (21-27); VBG PH 7.43 pH Units (7.32-7.42)
[2016-12-13] MEDS ORDERED: Octreotide 400 MCG in 0.9 % Sodium Chloride 100 ML IVC SCH (21:00)
[2016-12-13 21:02] LABS: Magnesium 1.5 mg/dL (1.6-2.6); Phosphorous 3.8 mg/dL (2.3-4.7)
[2016-12-13 21:04] LABS: Albumin 2.8 g/dL (3.5-5.0); Bilirubin,Direct 0.3 mg/dL (0.0-0.5); Bilirubin,Indirect 0.7 mg/dL (0.0-1.2); Globulin 2.9 g/dL (2.4-3.5); Total Protein 5.7 g/dL (6.0-8.3)
[2016-12-13] MEDS: Pantoprazole 40 MG in 0.9 % Sodium Chloride Mini Bag 100 ML IVC SCH (21:23)
[2016-12-13] MEDS ORDERED: Budesonide/Formoterol 160/4.5 MDI IH SCH (22:00)
[2016-12-13] MEDS: levETIRAcetam 250 MG TABLET PO SCH (22:04)
[2016-12-13] MEDS: Benzonatate 100 MG CAPSULE PO SCH (22:04)
[2016-12-13] MEDS: Nystatin SUSP 5 ML UD.LIQ PO SCH (22:04)
[2016-12-13] MEDS: Ipratropium/Albuterol Neb 3 ML IH SCH (22:16)
[2016-12-13] MEDS: D5% in 0.45% NACL w KCl 20 MEQ/1,000 ML MLS IVC PRN (22:39)
[2016-12-14] MEDS: Pantoprazole 40 MG in 0.9 % Sodium Chloride Mini Bag 100 ML IVC SCH ×2 (01:42→06:20)
[2016-12-14] MEDS ORDERED: 0.9 % Sodium Chloride 250 ML ONE ×2 (02:05→20:08)
[2016-12-14] MEDS ORDERED: Magnesium Sulfate 2 GM in D5% in Water 100 ML IVPB ONE (02:28)
[2016-12-14 02:33] LABS: Hemoglobin 4.8 g/dL (11.5-15.4)
[2016-12-14 02:34] LABS: Hematocrit 14.3 % (35.3-44.9)
[2016-12-14] MEDS: D5% in 0.45% NACL w KCl 20 MEQ/1,000 ML MLS IVC PRN (02:48)
[2016-12-14 03:35] LABS: Activated Partial Thrombo Time 30.7 Seconds (26.0-36.0)
[2016-12-14 03:40] LABS: INR 2.2; Prothrombin Time 23.8 Seconds (9.4-12.1)
[2016-12-14 03:45] LABS: Hemoglobin A1C 5.5 %
[2016-12-14 03:51] LABS: VBG HCO3 24.6 mEq/L (21-27); VBG PH 7.42 pH Units (7.32-7.42)
[2016-12-14 04:14] LABS: Magnesium 1.7 mg/dL (1.6-2.6); Phosphorous 2.5 mg/dL (2.3-4.7)
[2016-12-14 04:42] LABS: BUN/Creatinine Ratio 32 (6-26); Blood Urea Nitrogen 30 mg/dL (7-20); Calcium 7.9 mg/dL (8.6-10.8); Carbon Dioxide 19 mEq/L (19-29); Chloride 102 mEq/L (98-109); Glucose 167 mg/dL (70-99); Osmolality,Calculated 292 (280-300); Potassium 2.8 mEq/L (3.5-4.5); eGFR For African Americans > 60 (> 60); eGFR For Non-African Americans 59 (> 60)
[2016-12-14 04:47] LABS: Sodium 136 mEq/L (136-145)
[2016-12-14] MEDS: Ipratropium/Albuterol Neb 3 ML IH SCH ×4 (04:53→21:22)
[2016-12-14] MEDS ORDERED: Magnesium Sulfate 2 GM in D5% in Water 100 ML IVPB PRN (05:34)
[2016-12-14] MEDS ORDERED: Calcium Gluconate 1,000 MG in D5% in Water 100 ML IVPB PRN (05:34)
[2016-12-14] MEDS ORDERED: Bumetanide 1 MG/4 ML VIAL IVP STA (05:51)
[2016-12-14] MEDS ORDERED: 0.9 % Sodium Chloride w KCl 20 MEQ/1,000 ML MLS IVC PRN ×2 (05:53→05:54)
[2016-12-14] MEDS ORDERED: D5% in 0.45% NACL w KCl 20 MEQ/1,000 ML MLS IVC PRN (05:54)
[2016-12-14] MEDS ORDERED: D5% in 0.45% NACL 1,000 ML IVC PRN (05:54)
[2016-12-14] MEDS ORDERED: MethylPREDNISolone 40 MG/ML VIAL IVP SCH (06:00)
[2016-12-14] MEDS ORDERED: Dextrose Gel 15 GM PO PRN ×4 (08:10→17:47)
[2016-12-14] MEDS ORDERED: D5% in Water 1,000 ML IV PRN ×2 (08:10→17:47)
[2016-12-14] MEDS ORDERED: *HR* Dextrose 50 % in Water (Syg) 50 ML SYRINGE IVP PRN ×2 (08:10→17:47)
[2016-12-14] MEDS: Insulin LISPRO 300 UNITS/3 ML VIAL SQ SCH ×4 (08:21→18:45)
[2016-12-14 08:27] LABS: VBG HCO3 25.9 mEq/L (21-27); VBG PH 7.34 pH Units (7.32-7.42)
[2016-12-14 08:29] LABS: BUN/Creatinine Ratio 35 (6-26); Blood Urea Nitrogen 29 mg/dL (7-20); Calcium 7.7 mg/dL (8.6-10.8); Carbon Dioxide 22 mEq/L (19-29); Chloride 101 mEq/L (98-109); Glucose 112 mg/dL (70-99); Magnesium 2.7 mg/dL (1.6-2.6); Osmolality,Calculated 289 (280-300); Phosphorous 2.6 mg/dL (2.3-4.7); Potassium 3.1 mEq/L (3.5-4.5); Sodium 136 mEq/L (136-145); eGFR For African Americans > 60 (> 60); eGFR For Non-African Americans > 60 (> 60)
[2016-12-14 08:30] LABS: BUN/Creatinine Ratio 35 (6-26); Blood Urea Nitrogen 29 mg/dL (7-20); Calcium 7.8 mg/dL (8.6-10.8); Carbon Dioxide 23 mEq/L (19-29); Chloride 101 mEq/L (98-109); Glucose 110 mg/dL (70-99); Osmolality,Calculated 290 (280-300); Potassium 3.1 mEq/L (3.5-4.5); Sodium 137 mEq/L (136-145); eGFR For African Americans > 60 (> 60); eGFR For Non-African Americans > 60 (> 60)
[2016-12-14] MEDS: levETIRAcetam 250 MG TABLET PO SCH ×2 (08:55→21:36)
[2016-12-14] MEDS: Nystatin SUSP 5 ML UD.LIQ PO SCH ×4 (08:56→21:43)
[2016-12-14] MEDS: Folic Acid 1 MG TABLET PO SCH (08:56)
[2016-12-14] MEDS: Cyanocobalamin (B-12) 1,000 MCG TABLET PO SCH (08:56)
[2016-12-14] MEDS: Benzonatate 100 MG CAPSULE PO SCH ×3 (08:56→21:36)
[2016-12-14 09:04] LABS: Basophils % 0.1 %; Eosinophils % 0.1 %; Hematocrit 22.8 % (35.3-44.9); Immature Granulocytes % 2.7 % (0-4); Lymphocytes # 0.2 K/mcL (0.6-4.6); Lymphocytes % 1.2 %; Mean Corpuscular HGB Conc 33.8 g/dL (31.6-35.5); Mean Corpuscular Hemoglobin 29.5 pg (28.0-33.3); Mean Corpuscular Volume 87.4 fL (83.0-100.0); Monocytes # 1.1 K/mcL (0.0-1.3); Monocytes % 6.9 %; Neutrophils # 14.2 K/mcL (1.6-8.9); Nucleated Red Blood Cells 0.4 /100 WBC (0); Platelet Count 206 K/mcL (140-400); Red Blood Count 2.61 M/mcL (3.82-4.97); Red Cell Distribution Width 18.6 % (11.5-14.5)
[2016-12-14 09:07] LABS: Hemoglobin 7.7 g/dL (11.5-15.4)
--- NOTE | 2016-12-14 09:54 | Event Note ---
Date of Encounter: 12/14/16 Time of Encounter: 09:48 Issues with [employer], advised to write Event Note while issues are resolved CARDIOLOGY CONSULT NOTE Consult date: 12/14/16 Requesting physician: Dr. Contreras Consult reason: elevated troponin in setting of severe anemia Chief complaint: Severe anemia, GI bleed, HHS History of present illness: Ms. Mars (Lum) is a 71 year old female with history of right metastatic breast cancer ROS: Physical Exam: General: Conversant, No Apparent Distress HEENT: Atraumatic, Normocephaly, Mucus Membranes Moist Neck: No JVD, Normal carotid pulses Cardiac: Reg Rate and Rhythm, Normal S1 and S2, no murmur Lungs: normal breath sounds with bibasilar rales Neuro: Alert and responsive, No focal deficits noted Abdomen: Soft, Non-Tender Skin: No rashes noted on visualized skin Musculoskeletal: No Chest Wall Tenderness (port in the left chest wall) Extremities: No Clubbing, No Cyanosis, No Edema, Normal Pulses
--- NOTE | 2016-12-14 10:22 | ENT - Consult Note ---
Date of Encounter: 12/14/16 Time of Encounter: 10:20 Assessment and Plan (1) Epistaxis, recurrent Current Visit: Yes Status: Acute Patient with a history of occasional recurrent epistaxis. Patient's last bleed from the nose was approximately 1 week ago without any bleeding since that time. This bleed was at home prior to arrival at the hospital. At this time there is currently no bleeding there is no blood from the anterior nose or posteriorly down the back of the throat. Patient may have swallowed some of the blood last week during her bleeding episode which could have caused guiac positive stool but currently I see no bleeding and would just treat this patient for her dry nasal mucosa to help prevent any recurrent bleeding. Will place patient on schedule nasal saline spray to help moisturize the nose and will also place her on humidified oxygen and cut the prongs from the nasal cannula to prevent trauma to the nasal mucosa. Please contact ENT as needed if epistaxis recurs. (2) Anemia associated with acute blood loss Current Visit: No Status: Acute Patient has been transfused. Further treatment per primary team. (3) Coumadin toxicity Current Visit: Yes Status: Acute Continue current treatment by primary team. If nasal mucosa is dry and patient with a coagulopathy patient is more likely to have acute epistaxis from the nose. Qualifiers: Encounter type: initial encounter Injury intent: accidental or unintentional Qualified Code(s): T45.511A - Poisoning by anticoagulants, accidental (unintentional), initial encounter History of Present Illness Consult date: 12/14/16 Reason for ENT Consult: epistaxis History of present illness: Patient is a 71-year-old female with a very complicated past medical history consistent with metastatic breast cancer. Patient was admitted with severe weakness and was found to be anemic. Patient did have a severe episode of epistaxis approximately 1 week ago on further questioning. Patient states bleed was significant at home and she was about to come to the emergency room for evaluation but it stopped after she packed her nose with some gauze. Patient denies any bleeding since that time. Patient denies any coughing up of blood or feeling of blood dripping down the throat. Patient is on Coumadin and does experience nosebleeds occasionally over the years. We are consult in for possible epistaxis. Past Med Surg Social Fam HX - Past Medical History Medical history: arthritis, cancer (Invasive ductal carcinoma. Synchronous metastatic lung cancer.), CVA, DVT, diabetes, GERD, GI bleed (Peptic ulcer disease history. External hemorrhoids. Diverticular disease.), hyperlipidemia , hypertension, malignancy (Metastatic breast cancer and synchronous metastatic lung cancer.), osteoporosis, TIA, other (Positional dizziness/vertigo. Antiphospholipid antibody syndrome. Long-standing chronic warfarin therapy.) Psychiatric history: anxiety, depression, other - Past Surgical History Surgical History: appendectomy, breast surgery, cancer surgery, cataract, cholecystectomy, hysterectomy, orthopedic, other, YANET/BSO, other (Surgery 2 at ages 1 and 10. Total abdominal bilateral salpingo-oophorectomy and hysterectomy 1977. Appendectomy. Laparoscopic cholecystectomy 1999. Cardiac catheterization 1998. Pre-needle localization, excisional biopsy left breast 1996-benign. Shoulder replacement surgeries 2009 2010. PML/excision carcinoma right breast with pathology analysis margins (partial mastectomy) and right axillary node biopsy 2014. Colonoscopy.) - Social History Smoking Status: Former smoker Smokeless Tobacco Status: No Alcohol use: none Drug use: none Medications and Allergies Albuterol Sulfate [Proair HFA] 2 puff IH Q6HR PRN 06/12/15 [History] Amlodipine Besylate [Norvasc] 5 mg PO DAILY 06/12/15 [History] Atorvastatin [Lipitor] 40 mg PO HS 06/12/15 [History] GlyBURIDE [Diabeta] 5 mg PO BID 06/12/15 [History] LevETIRAcetam [Keppra] 500 mg PO BID 06/12/15 [History] Metformin HCl [Glucophage] 500 mg PO DAILY 06/12/15 [History] Omeprazole [PriLOSEC] 20 mg PO DAILY 06/12/15 [History] Ondansetron HCl [Zofran] 8 mg PO Q8H PRN 06/12/15 [History] Sertraline HCl [Zoloft] 150 mg PO DAILY 06/12/15 [History] Triamterene/Hydrochlorothiazid [Dyazide 37.5-25 Capsule] 1 each PO DAILY [History] Warfarin [Coumadin] 5 mg PO 1800 06/12/15 [History] Denosumab [Xgeva] 120 mg SQ AD #06/22/15 [Rx] Cyanocobalamin (Vitamin B-12) [Vitamin B-12] 1,000 mcg PO DAILY #90 tablet 02/08 [Rx] Meclizine [Antivert] 25 mg PO TID PRN #30 tablet 02/29/16 [Rx] Budesonide/Formoterol 160/4.5 [Symbicort 160/4.5] 1 puff IH BIDR #3 hfa.aer.ad 05/19/16 [Rx] LORazepam [Ativan] 1 mg PO Q6H PRN #60 tablet 05/19/16 [Rx] Cholecalciferol (D-3) [Vitamin D] 1,000 unit PO DAILY #90 tablet 06/22/16 [Rx] GuaiFENesin/Dextromethorphan [Robitussin/DM] 5 ml PO Q4HR PRN #250 ml 07/29/16 [ Rx] Calcium Carbonate/Vitamin D3 [Calcium 600-Vit D3 800 Tablet] 2 each PO DAILY # 180 tablet 09/29/16 [Rx] Benzonatate [Tessalon] 100 mg PO TID #90 capsule 11/14/16 [Rx] Folic Acid 1 mg PO DAILY #90 tablet 11/14/16 [Rx] OxyCODONE/APAP 10/325 [Percocet 10/325 MG] 1 - 2 each PO Q4HR PRN #120 tablet [Rx] Anastrozole [Arimidex] 1 mg PO DAILY 12/13/16 [History] Dexamethasone [Decadron] 8 mg PO BID 12/13/16 [History] Ferrous Sulfate 325 mg PO DAILY 12/13/16 [History] Allergies Cephalosporins Allergy (Verified 06/21/16 07:28) See Comments codeine Allergy (Verified 06/21/16 07:28) See Comments lisinopril Allergy (Verified 06/21/16 07:28) See Comments metoclopramide [From Reglan] Allergy (Verified 06/21/16 07:28) Confusion Penicillins Allergy (Verified 06/21/16 07:28) Hives Sulfa (Sulfonamide Antibiotics) Allergy (Verified 06/21/16 07:28) See Comments ENT - ROS - Constitutional Constitutional ROS: as per HPI - EENT Nose, mouth and throat: epistaxis (In the past, occasional, no current epistaxis.), other (Nasal dryness, mucosal dryness) ENT Exam Initial Vital Signs Temp Pulse Resp BP Pulse Ox 97.8 F 115 20 148/69 100 12/13/16 16:29 12/13/16 16:29 12/13/16 16:29 12/13/16 16:29 12/13/16 16:29 - General physical appearance well developed, chronically ill - Eyes normal ocular movement - ENT normal nares, dry mucosa, Other (No blood from the anterior naris, nasal mucosa appears dry with some crusting. No dried blood or active bleeding from the anterior nares bilaterally. Mouth shows dry mucosa but no blood in the posterior oropharynx. Nasal cannula in place.) - Neck trachea midline - Respiratory normal expansion, normal respiratory effort - Psychiatric oriented to person, oriented to place, speech is normal Exam Initial Vital Signs Temp Pulse Resp BP Pulse Ox 97.8 F 115 20 148/69 100 12/13/16 16:29 12/13/16 16:29 12/13/16 16:29 12/13/16 16:29 12/13/16 16:29 Results - Labs 12/14/16 08:00 12/14/16 08:00 Abnormal lab results WBC 16.0 K/mcL (4.3-11.1) H 12/14/16 08:00 RBC 2.61 M/mcL (3.82-4.97) L 12/14/16 08:00 Hgb 7.7 g/dL (11.5-15.4) L D 12/14/16 08:00 Hct 22.8 % (35.3-44.9) L 12/14/16 08:00 RDW 18.6 % (11.5-14.5) H 12/14/16 08:00 Neutrophils # 14.2 K/mcL (1.6-8.9) H 12/14/16 08:00 Lymphocytes # 0.2 K/mcL (0.6-4.6) L 12/14/16 08:00 Nucleated RBCs/100 WBC 0.4 /100 WBC (0) H 12/14/16 08:00 Polychromasia 1+ (Not Present) A 12/13/16 17:10 Anisocytosis 2+ (Not Present) A 12/13/16 17:10 Microcytosis Present (Not Present) A 12/13/16 17:10 PT 23.8 Seconds (9.4-12.1) H D 12/14/16 03:18 VBG pO2 88 mmHg (25-40) H 12/14/16 08:00 Potassium 3.1 mEq/L (3.5-4.5) L 12/14/16 08:00 BUN 29 mg/dL (7-20) H 12/14/16 08:00 BUN/Creatinine Ratio 35 (6-26) H 12/14/16 08:00 Glucose 110 mg/dL (70-99) H 12/14/16 08:00 POC Glucose 129 (58-89) H 12/14/16 07:40 Calcium 7.8 mg/dL (8.6-10.8) L 12/14/16 08:00 Magnesium 2.7 mg/dL (1.6-2.6) H 12/14/16 08:00 Troponin I 2.42 ng/mL (0-0.03) H* 12/14/16 08:00 B-Natriuretic Peptide 583 pg/mL (0-100) H 12/13/16 17:10 Serum Total Protein 5.7 g/dL (6.0-8.3) L 12/13/16 20:40 Albumin 2.8 g/dL (3.5-5.0) L 12/13/16 20:40 Albumin/Globulin Ratio 1.0 (1.1-2.2) L 12/13/16 20:40 Triglycerides 255 mg/dL (< 150) H 12/14/16 03:18 VLDL Cholesterol, Calc 51 mg/dL (< 31) H 12/14/16 03:18 HDL Cholesterol 26 mg/dL (40-59) L 12/14/16 03:18 Cholesterol/HDL Ratio 6.0 (0-4.9) H 12/14/16 03:18 Beta-Hydroxybutyric Acd 0.44 mmol/L (0.02-0.27) H 12/13/16 17:10 Urine Glucose (UA) >=1000 mg/dL (Normal) H 12/13/16 17:23 Stool Occult Blood Positive (Negative) A 12/13/16 16:36 Salicylates < 5.0 mg/dL (15-30) L 12/13/16 20:40 Diabetes panel 12/13/16 12/14/16 12/14/16 Range/Units 20:40 03:18 03:18 Sodium (136-145) mEq/L Potassium (3.5-4.5) mEq/L Chloride (98-109) mEq/L Carbon Dioxide (19-29) mEq/L BUN (7-20) mg/dL Creatinine (0.57-1.11) mg/dL Glucose (70-99) mg/dL Hemoglobin A1c 5.5 ( - 5.6) % Calcium (8.6-10.8) mg/dL AST 6 (5-34) Units/L ALT 7 (0-55) Units/L Alkaline Phosphatase 59 (38-126) Units/L Albumin 2.8 L (3.5-5.0) g/dL Triglycerides 255 H (< 150) mg/dL HDL Cholesterol 26 L (40-59) mg/dL 12/14/16 12/14/16 12/14/16 Range/Units 03:18 08:00 08:00 Sodium 136 D 136 137 (136-145) mEq/L Potassium 2.8 L 3.1 L 3.1 L (3.5-4.5) mEq/L Chloride 102 101 101 (98-109) mEq/L Carbon Dioxide 19 22 23 (19-29) mEq/L BUN 30 H 29 H 29 H (7-20) mg/dL Creatinine 0.93 0.84 0.84 (0.57-1.11) mg/dL Glucose 167 H 112 H 110 H (70-99) mg/dL Hemoglobin A1c ( - 5.6) % Calcium 7.9 L 7.7 L 7.8 L (8.6-10.8) mg/dL AST (5-34) Units/L ALT (0-55) Units/L Alkaline Phosphatase (38-126) Units/L Albumin (3.5-5.0) g/dL Triglycerides (< 150) mg/dL HDL Cholesterol (40-59) mg/dL Thyroid panel 12/14/16 Range/Units 03:18 TSH 0.425 (0.350-4.840) mcIU/mL Calcium panel 12/13/16 12/13/16 12/14/16 Range/Units 20:40 20:40 03:18 Calcium 7.9 L (8.6-10.8) mg/dL Phosphorus 3.8 2.5 (2.3-4.7) mg/dL Albumin 2.8 L (3.5-5.0) g/dL 12/14/16 12/14/16 Range/Units 08:00 08:00 Calcium 7.7 L 7.8 L (8.6-10.8) mg/dL Phosphorus 2.6 (2.3-4.7) mg/dL Albumin (3.5-5.0) g/dL Pituitary panel 12/14/16 12/14/16 12/14/16 Range/Units 03:18 03:18 08:00 Sodium 136 D 136 (136-145) mEq/L Potassium 2.8 L 3.1 L (3.5-4.5) mEq/L Chloride 102 101 (98-109) mEq/L Carbon Dioxide 19 22 (19-29) mEq/L BUN 30 H 29 H (7-20) mg/dL Creatinine 0.93 0.84 (0.57-1.11) mg/dL Glucose 167 H 112 H (70-99) mg/dL Calcium 7.9 L 7.7 L (8.6-10.8) mg/dL TSH 0.425 (0.350-4.840) mcIU/mL 12/14/16 Range/Units 08:00 Sodium 137 (136-145) mEq/L Potassium 3.1 L (3.5-4.5) mEq/L Chloride 101 (98-109) mEq/L Carbon Dioxide 23 (19-29) mEq/L BUN 29 H (7-20) mg/dL Creatinine 0.84 (0.57-1.11) mg/dL Glucose 110 H (70-99) mg/dL Calcium 7.8 L (8.6-10.8) mg/dL TSH (0.350-4.840) mcIU/mL Adrenal panel 12/13/16 12/14/16 12/14/16 Range/Units 20:40 03:18 08:00 Sodium 136 D 136 (136-145) mEq/L Potassium 2.8 L 3.1 L (3.5-4.5) mEq/L Chloride 102 101 (98-109) mEq/L Carbon Dioxide 19 22 (19-29) mEq/L BUN 30 H 29 H (7-20) mg/dL Creatinine 0.93 0.84 (0.57-1.11) mg/dL Glucose 167 H 112 H (70-99) mg/dL Calcium 7.9 L 7.7 L (8.6-10.8) mg/dL Total Bilirubin 1.0 (0.2-1.2) mg/dL AST 6 (5-34) Units/L ALT 7 (0-55) Units/L Alkaline Phosphatase 59 (38-126) Units/L Albumin 2.8 L (3.5-5.0) g/dL 12/14/16 Range/Units 08:00 Sodium 137 (136-145) mEq/L Potassium 3.1 L (3.5-4.5) mEq/L Chloride 101 (98-109) mEq/L Carbon Dioxide 23 (19-29) mEq/L BUN 29 H (7-20) mg/dL Creatinine 0.84 (0.57-1.11) mg/dL Glucose 110 H (70-99) mg/dL Calcium 7.8 L (8.6-10.8) mg/dL Total Bilirubin (0.2-1.2) mg/dL AST (5-34) Units/L ALT (0-55) Units/L Alkaline Phosphatase (38-126) Units/L Albumin (3.5-5.0) g/dL All other labs normal. Consult Discharge Plan - Plan Referrals: Liberty Vides MD [Primary Care Provider] -
--- NOTE | 2016-12-14 10:32 | Electrocardiograph Report ---
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 SINUS TACHYCARDIA VERSUS ATRIAL FLUTTER DIFFUSE SUBENDOCARDIAL ISCHEMIA REPEAT EKG Electronically Signed On 12-14-2016 10:31:16 EST by Figueroa Tee MD
--- NOTE | 2016-12-14 10:54 | Cardiology Consult Note ---
<Tree Henry - Last Filed: 12/14/16 11:19> Date of Encounter: 12/14/16 Time of Encounter: 10:51 Assessment and Plan (1) Demand ischemia of myocardium Current Visit: Yes Status: Acute .- elevated troponin peaked 2.42, elevation is likely from demand ischemia in the setting of severe anemia (3.7 --> 4.8) - denies any chest pain, lightheadedness, palpitations - patient reports history of [facility] [address] Champion at [facility] - EKG reveals sinus tachycardia with diffuse ST depressions, possible atrial flutter - inappropriate to anticoagulate her for catheterization in setting of GI bleed but also there are no indications at this time - she would not be appropriate for cardiac rehab, recommend medical management at this time - hold coumadin and evaluate with echocardiogram for now - will continue to follow, once GI bleed/anemia is addressed and corrected may give further recs as appropriate (2) Acute blood loss anemia Current Visit: Yes Status: Acute .- patient is on coumadin for reported CVA prophylaxis, INR 2.2 she gets it checked [id number] - severely anemic with initial Hgb of 3.7, after 4 units of pRBCs hemoglobin is now 7.7 - CXR reveals new pulmonary edema likely from fluid and blood products - hemoccult positive - recommend to hold her coumadin until GI bleed addressed by surgery/GI Discussion w patient/family: The assessment and plan as outlined above was discussed with the patient and/or family members who expressed understanding and agreement. All questions were answered. Thank you for involving us in the care of your patient. Please call with any questions. History of Present Illness Consult date: 12/14/16 Requesting physician: Bartolo Contreras Consult reason: elevated troponin Chief complaint: severe anemia, GI bleed, HHS History of present illness: Ms. Mars (Lum) is a 71 year old female with history of metastatic breast cancer s/p right lumpectomy and chemoradiation, HTN, HLD, DM, antiphospholipid syndrome and former smoker presented to the ED from the oncology center for dyspnea and low hemoglobin. Upon day of admission she felt nauseated and had abdominal cramping and called her oncologist. She presented to the oncology center and had elevated glucose in 600 and hemoglobin of 3.7. She admits to not taking her glyburide and metformin due to nausea. She is on long-standing coumadin which she reports is for CVA prophylaxis but likely antiphospholipid antibody syndrome or possible underlying atrial fibrillation/flutter. She reports dark stools but admits that she takes iron supplements. Denies any chest pain, headaches, lightheadedness, syncope, hemoptysis, or bloody stools. She remains dyspneic at rest and particularly with exertion. Also reports history of epistaxis 5 days ago that last several minutes with packing placed at home. Denies history cardiac ischemic disease. EKG reveals diffuse ST depression and a supraventricular tachycardia possible atrial flutter. Reportedly had a LHC in [address] [facility] without stent placement. Past Med Surg Social Fam HX - Past Medical History Medical history: arthritis, cancer (Invasive ductal carcinoma. Synchronous metastatic lung cancer.), CVA, DVT, diabetes, GERD, GI bleed (Peptic ulcer disease history. External hemorrhoids. Diverticular disease.), hyperlipidemia , hypertension, malignancy (Metastatic breast cancer and synchronous metastatic lung cancer.), osteoporosis, TIA, other (Positional dizziness/vertigo. Antiphospholipid antibody syndrome. Long-standing chronic warfarin therapy.) Psychiatric history: anxiety, depression, other - Past Surgical History Surgical History: appendectomy, breast surgery, cancer surgery, cataract, cholecystectomy, hysterectomy, orthopedic, other, YANET/BSO, other (Surgery 2 at ages 1 and 10. Total abdominal bilateral salpingo-oophorectomy and hysterectomy 1977. Appendectomy. Laparoscopic cholecystectomy 1999. Cardiac catheterization 1998. Pre-needle localization, excisional biopsy left breast 1996-benign. Shoulder replacement surgeries 2009 2010. PML/excision carcinoma right breast with pathology analysis margins (partial mastectomy) and right axillary node biopsy 2014. Colonoscopy.) - Social History Smoking Status: Former smoker Smokeless Tobacco Status: No Alcohol use: none Drug use: none Medications and Allergies Albuterol Sulfate [Proair HFA] 2 puff IH Q6HR PRN 06/12/15 [History] Amlodipine Besylate [Norvasc] 5 mg PO DAILY 06/12/15 [History] Atorvastatin [Lipitor] 40 mg PO HS 06/12/15 [History] GlyBURIDE [Diabeta] 5 mg PO BID 06/12/15 [History] LevETIRAcetam [Keppra] 500 mg PO BID 06/12/15 [History] Metformin HCl [Glucophage] 500 mg PO DAILY 06/12/15 [History] Omeprazole [PriLOSEC] 20 mg PO DAILY 06/12/15 [History] Ondansetron HCl [Zofran] 8 mg PO Q8H PRN 06/12/15 [History] Sertraline HCl [Zoloft] 150 mg PO DAILY 06/12/15 [History] Triamterene/Hydrochlorothiazid [Dyazide 37.5-25 Capsule] 1 each PO DAILY [History] Warfarin [Coumadin] 5 mg PO 1800 06/12/15 [History] Denosumab [Xgeva] 120 mg SQ AD #6 06/22/15 [Rx] Cyanocobalamin (Vitamin B-12) [Vitamin B-12] 1,000 mcg PO DAILY #90 tablet 02/08 [Rx] Meclizine [Antivert] 25 mg PO TID PRN #30 tablet 02/29/16 [Rx] Budesonide/Formoterol 160/4.5 [Symbicort 160/4.5] 1 puff IH BIDR #3 hfa.aer.ad 05/19/16 [Rx] LORazepam [Ativan] 1 mg PO Q6H PRN #60 tablet 05/19/16 [Rx] Cholecalciferol (D-3) [Vitamin D] 1,000 unit PO DAILY #90 tablet 06/22/16 [Rx] GuaiFENesin/Dextromethorphan [Robitussin/DM] 5 ml PO Q4HR PRN #250 ml 07/29/16 [ Rx] Calcium Carbonate/Vitamin D3 [Calcium 600-Vit D3 800 Tablet] 2 each PO DAILY # 180 tablet 09/29/16 [Rx] Benzonatate [Tessalon] 100 mg PO TID #90 capsule 11/14/16 [Rx] Folic Acid 1 mg PO DAILY #90 tablet 11/14/16 [Rx] OxyCODONE/APAP 10/325 [Percocet 10/325 MG] 1 - 2 each PO Q4HR PRN #120 tablet [Rx] Anastrozole [Arimidex] 1 mg PO DAILY 12/13/16 [History] Dexamethasone [Decadron] 8 mg PO BID 12/13/16 [History] Ferrous Sulfate 325 mg PO DAILY 12/13/16 [History] Allergies Cephalosporins Allergy (Verified 06/21/16 07:28) See Comments codeine Allergy (Verified 06/21/16 07:28) See Comments lisinopril Allergy (Verified 06/21/16 07:28) See Comments metoclopramide [From Reglan] Allergy (Verified 06/21/16 07:28) Confusion Penicillins Allergy (Verified 06/21/16 07:28) Hives Sulfa (Sulfonamide Antibiotics) Allergy (Verified 06/21/16 07:28) See Comments All Systems Review: A 10-system review of systems was performed and is negative for pertinent findings except as documented above in the HPI. - Constitutional Constitutional: weakness, no fever(s) - EENT Nose, mouth and throat: epistaxis (5 days ago) - Cardiovascular Cardiovascular: dyspnea at rest, dyspnea on exertion, no chest pain at rest, no chest pain with exertion, no radiating jaw, neck or arm pain, no lightheadedness , no palpitations, no syncope - Respiratory Respiratory: dyspnea, no cough - Gastrointestinal Gastrointestinal: melena (iron use), nausea, no diarrhea, no hematemesis - Genitourinary Genitourinary: no hematuria Physical Examination Vital Signs, Last 4 Hours Temp Pulse Resp BP Pulse Ox 12/14/16 10:01 16 94 L 12/14/16 09:00 121 16 135/73 94 L 12/14/16 08:00 121 18 145/81 94 L 12/14/16 07:53 97.9 F General: Conversant, No Apparent Distress HEENT: Atraumatic, Normocephaly, Mucus Membranes Moist Neck: No JVD, Normal carotid pulses Cardiac: Reg Rate and Rhythm, Normal S1 and S2, No Murmur Lungs: Normal Breath Sounds, Other (bibasilar rales) Neuro: Alert and responsive, No focal deficits noted Abdomen: Soft, Non-Tender Skin: No rashes noted on visualized skin Musculoskeletal: No Chest Wall Tenderness (port in the left chest wall) Extremities: No Clubbing, No Cyanosis, No Edema, Normal Pulses Results 12/14/16 08:00 12/14/16 08:00 Lab Results 12/13/16 12/13/16 12/13/16 20:40 20:40 20:40 WBC Hgb Hct Plt Count INR APTT Sodium Potassium Chloride Carbon Dioxide BUN Creatinine Glucose Calcium Magnesium 1.5 L Total Bilirubin 1.0 AST 6 ALT 7 Alkaline Phosphatase 59 Troponin I 0.44 H* TSH 12/14/16 12/14/16 12/14/16 02:24 03:18 03:18 WBC Hgb 4.8 L* Hct 14.3 L* Plt Count INR 2.2 D APTT 30.7 Sodium Potassium Chloride Carbon Dioxide BUN Creatinine Glucose Calcium Magnesium Total Bilirubin AST ALT Alkaline Phosphatase Troponin I 2.14 H* TSH 12/14/16 12/14/16 12/14/16 03:18 03:18 08:00 WBC Hgb Hct Plt Count INR APTT Sodium 136 D Potassium 2.8 L Chloride 102 Carbon Dioxide 19 BUN 30 H Creatinine 0.93 Glucose 167 H Calcium 7.9 L Magnesium 1.7 Total Bilirubin AST ALT Alkaline Phosphatase Troponin I 2.42 H* TSH 0.425 12/14/16 12/14/16 12/14/16 08:00 08:00 08:00 WBC 16.0 H Hgb 7.7 L D Hct 22.8 L Plt Count 206 INR APTT Sodium 136 137 Potassium 3.1 L 3.1 L Chloride 101 101 Carbon Dioxide 22 23 BUN 29 H 29 H Creatinine 0.84 0.84 Glucose 112 H 110 H Calcium 7.7 L 7.8 L Magnesium 2.7 H Total Bilirubin AST ALT Alkaline Phosphatase Troponin I TSH - Imaging and Cardiology Chest Xray: report reviewed, image reviewed - EKG Interpretation EKG results cardiology: personally reviewed, sinus rhythm, other (diffuse ST depressions) Consult Discharge Plan - Plan Referrals: Liberty Vides MD [Primary Care Provider] - <Justus Ayala - Last Filed: 12/14/16 11:45> Date of Encounter: 12/14/16 Assessment and Plan Discussion w patient/family: The assessment and plan as outlined above was discussed with the patient and/or family members who expressed understanding and agreement. All questions were answered. Thank you for involving us in the care of your patient. Please call with any questions. History of Present Illness History of present illness: Ms. Mars is a 71 year old female All Systems Review: A 10-system review of systems was performed and is negative for pertinent findings except as documented above in the HPI. Physical Examination Vital Signs, Last 4 Hours Temp Pulse Resp BP Pulse Ox 02/01/17 11:16 97.3 F L 12/14/16 11:00 114 16 128/68 95 12/14/16 10:01 16 94 L 12/14/16 10:00 114 16 134/71 94 L 12/14/16 09:00 121 16 135/73 94 L 12/14/16 08:00 121 18 145/81 94 L 12/14/16 07:53 97.9 F Results 12/14/16 08:00 12/14/16 08:00 Lab Results 12/13/16 12/13/16 12/13/16 20:40 20:40 20:40 WBC Hgb Hct Plt Count INR APTT Sodium Potassium Chloride Carbon Dioxide BUN Creatinine Glucose Calcium Magnesium 1.5 L Total Bilirubin 1.0 AST 6 ALT 7 Alkaline Phosphatase 59 Troponin I 0.44 H* TSH 12/14/16 12/14/16 12/14/16 02:24 03:18 03:18 WBC Hgb 4.8 L* Hct 14.3 L* Plt Count INR 2.2 D APTT 30.7 Sodium Potassium Chloride Carbon Dioxide BUN Creatinine Glucose Calcium Magnesium Total Bilirubin AST ALT Alkaline Phosphatase Troponin I 2.14 H* TSH 12/14/16 12/14/16 12/14/16 03:18 03:18 08:00 WBC Hgb Hct Plt Count INR APTT Sodium 136 D Potassium 2.8 L Chloride 102 Carbon Dioxide 19 BUN 30 H Creatinine 0.93 Glucose 167 H Calcium 7.9 L Magnesium 1.7 Total Bilirubin AST ALT Alkaline Phosphatase Troponin I 2.42 H* TSH 0.425 12/14/16 12/14/16 12/14/16 08:00 08:00 08:00 WBC 16.0 H Hgb 7.7 L D Hct 22.8 L Plt Count 206 INR APTT Sodium 136 137 Potassium 3.1 L 3.1 L Chloride 101 101 Carbon Dioxide 22 23 BUN 29 H 29 H Creatinine 0.84 0.84 Glucose 112 H 110 H Calcium 7.7 L 7.8 L Magnesium 2.7 H Total Bilirubin AST ALT Alkaline Phosphatase Troponin I TSH - Attending Attestation I examined this patient and my medical decision-making was reviewed with the [employer]/PA/Advanced Practice Nurse/Resident Physician. I agree with the documented findings, disposition and treatment plan as described except to the extent set forth below. pt has some ESTRADA, most likely due to anemia due to GI bleed, due to elevated INR Probably has a component of high ouput CHF VSS pale JVD: 6-7 cm Chest : clear CVS: no s3 EKG: reviewed by me show NSR with ST T changes - probably due to demand ischemia plan; d/c COumadin reverse Elevated INR transfuse as needed watch for fluid overload- diuretics in between blood consult GI probably demand ischemia due to anemia: no indications for cath Thanks
[2016-12-14] MEDS: Saline Nasal Spray 44 ML BOTTLE NS SCH ×4 (11:22→21:38)
--- NOTE | 2016-12-14 11:39 | Internal Med Progress Note ---
Date of Encounter: 12/14/16 Time of Encounter: 07:45 - Subjective Interval history: Feels better; no reported nausea, vomiting, hematemesis, hematochezia, but does have melena at home; had an episode of severe nosebleed last week; currently no bleeding noted; Assessment and plan written here due to technical issues- Acute blood loss anemia-likely related to epistaxis but cannot rule out GI bleed. Hold anticoagulation with Coumadin. Received 4 units PRBC transfusion, hemoglobin improved to 7.7. No signs of active bleeding at this time. Surgery consulted for possible EGD/colonoscopy, will follow-up recommendations. Discontinue Protonix and octreotide drips as there is no evidence of active upper GI bleed at this time. Diabetic ketoacidosis-could be related to metabolic stress from her anemia as the patient usually has well-controlled blood sugars and is not noted to be on insulin at home. Check hemoglobin A1c. Anion gap is currently closed with improved blood sugars. Discontinue IV insulin drip and start subcutaneous sliding scale insulin. Continue nothing by mouth for now along with IV hydration. Epistaxis-currently resolved. Melena could be a result of epistaxis. ENT consult appreciated-no intervention for now as there is no active bleeding or clots in anterior and posterior nasal cavity. Elevated troponin-this is likely demand ischemia due to acute anemia. Troponins continued to be elevated, trending up, currently 2.42. Continue telemetry monitoring. Follow-up echocardiogram. Cardiology consulted, will follow recommendations. Antiphospholipid syndrome-noted to be on long-term anticoagulation with Coumadin at home. Presented with INR 4.9, received 2 units of fresh frozen plasma, 10 mg of vitamin K along with cryoprecipitate and INR improved to 2.2. Continue to monitor closely. Supratherapeutic INR and Coumadin toxicity-plan as above. Hold Coumadin for now. Stage IV lung and breast cancer-oncology follow-up as outpatient. Patient would like to discuss her long-term goals of treatment including CODE STATUS and advanced directives. We will consult palliative care. COPD-not noted to be in acute exacerbation. Continue bronchodilators, discontinue IV steroids at this time. Anxiety, depression-stable mood. Continue home medications. Continue IV PPI for GI prophylaxis; Sequential compression devices for DVT prophylaxis; avoid medical anticoagulation; - Constitutional Vitals: Temp Pulse Resp BP Pulse Ox 97.3 F L 114 16 128/68 95 12/14/16 11:16 12/14/16 11:00 12/14/16 11:00 12/14/16 11:00 12/14/16 11:00 General appearance: Present: A&O X 3, answers questions appropriately - Head Head exam: Present: atraumatic, normocephalic - Neck Neck exam general surgery: Present: supple, trachea midline. Absent: lymphadenopathy - Respiratory Respiratory exam: Present: CTAB. Absent: accessory muscle use, rales, rhonchi, wheezes - Cardiovascular Cardiovascular exam: Present: RRR, +S1, +S2, tachycardia. Absent: diastolic murmur, gallop, rubs, systolic murmur - GI/Abdominal GI/Abdominal exam: Present: normal bowel sounds, soft, no peritoneal signs. Absent: distended, tenderness - Extremities Exam Extremities exam: Present: warm, radial pulses palpable and symetrical. Absent : calf tenderness, cyanotic, pedal edema - Neurological Exam Neurological exam: Present: CN II-XII intact, oriented X3, no focal deficits. Absent: pronater drift, facial droop, speech deficit - Skin Skin exam: Present: dry, intact Internal Medicine: Result - Labs CBC & Chem 7: 12/14/16 08:00 12/14/16 08:00 Labs: Short CBC 12/14/16 12/14/16 Range/Units 02:24 08:00 WBC 16.0 H (4.3-11.1) K/mcL Hgb 4.8 L* 7.7 L D (11.5-15.4) g/dL Hct 14.3 L* 22.8 L (35.3-44.9) % Plt Count 206 (140-400) K/mcL Neutrophils # 14.2 H (1.6-8.9) K/mcL BMP 12/14/16 12/14/16 12/14/16 03:18 08:00 08:00 Sodium 136 D 136 137 Potassium 2.8 L 3.1 L 3.1 L Chloride 102 101 101 Carbon Dioxide 19 22 23 BUN 30 H 29 H 29 H Creatinine 0.93 0.84 0.84 Glucose 167 H 112 H 110 H Calcium 7.9 L 7.7 L 7.8 L Cardiac Enzymes 12/13/16 12/14/16 12/14/16 Range/Units 20:40 03:18 08:00 Troponin I 0.44 H* 2.14 H* 2.42 H* (0-0.03) ng/mL Liver Function 12/13/16 Range/Units 20:40 Total Bilirubin 1.0 (0.2-1.2) mg/dL Direct Bilirubin 0.3 (0.0-0.5) mg/dL AST 6 (5-34) Units/L ALT 7 (0-55) Units/L Alkaline Phosphatase 59 (38-126) Units/L Albumin 2.8 L (3.5-5.0) g/dL - ABG Interpretation ABG results: PT/INR, D-dimer PT 23.8 Seconds (9.4-12.1) H D 12/14/16 03:18 - Impressions Impressions Chest X-Ray 12/14/16 05:54 IMPRESSION: New pulmonary edema. D/ / Clifford Wesley MD / Clifford Wesley MD Interpreting Provider: Clifford Wesley MD Consult Discharge Plan - Plan Referrals: Liberty Vides MD [Primary Care Provider] -
[2016-12-14 11:44] LABS: Hematocrit 21.7 % (35.3-44.9); Hemoglobin 7.2 g/dL (11.5-15.4)
[2016-12-14 11:45] LABS: VBG HCO3 24.3 mEq/L (21-27); VBG PH 7.36 pH Units (7.32-7.42)
[2016-12-14 11:55] LABS: BUN/Creatinine Ratio 37 (6-26); Blood Urea Nitrogen 33 mg/dL (7-20); Calcium 7.3 mg/dL (8.6-10.8); Carbon Dioxide 21 mEq/L (19-29); Chloride 99 mEq/L (98-109); Glucose 373 mg/dL (70-99); Osmolality,Calculated 299 (280-300); Phosphorous 2.7 mg/dL (2.3-4.7); Potassium 3.6 mEq/L (3.5-4.5); Sodium 133 mEq/L (136-145); eGFR For African Americans > 60 (> 60); eGFR For Non-African Americans > 60 (> 60)
[2016-12-14] MEDS ORDERED: Insulin DETEMIR 100 UNIT/ML X5UNITS SQ SCH (15:15)
--- NOTE | 2016-12-14 15:35 | General Surgery Consult Note ---
Date of Encounter: 12/14/16 Time of Encounter: 14:45 History of Present Illness Consult date: 12/14/16 Reason for consult: other (anemia) Requesting physician: Shelly Aguila History of present illness: 71-year-old female well known to me admitted after the patient was referred from the [place] [facility] for further evaluation and treatment of shortness of breath and profound anemia. The patient has a history of metastatic non-small cell lung cancer with synchronous right breast cancer, 2014, for which the patient has been receiving therapy per the [facility], Dr Lyn. On presentation to the emergency department the patient was noted to have a hemoglobin of 3.8 (hemoglobin 11/25/15 was 10.7). The patient describes a prolonged, profuse nosebleed 12/09/16. The patient indicates that she is had a previous nosebleed requiring operation per ENT (Dr Liang). The patient denies any detected blood per rectum but admits that her stool has been black since initiating therapy a few months ago. The patient was hyperglycemic on presentation to the emergency department but indicates that prior to her presentation she took a glucose tablet. Past medical history is also notable for COPD, anxiety, depression; osteoarthritis; osteoporosis, antiphospholipid syndrome; chronic anticoagulation (warfarin); history of previous stroke and TIAs; DVT; insulin- dependent diabetes dyslipidemia, remote history of peptic ulcer disease and history of tobacco use Surgical history includes right lumpectomy with axillary sentinel node biopsy. Hysterectomy in 1977; eye surgery 2 at ages 1 and 10; YANET/BSO 1977; appendectomy as a teen; laparoscopic cholecystectomy in 1999; cardiac catheterization in 1998; localization excisional breast biopsy left breast for benign disease, 1996; shoulder replacement in 2009 or 2010. Colonoscopy, last completed, 06/21/16 with no significant findings (6 months ago). Allergies include penicillin, Reglan, and sulfa Social history: ; she indicates she is quit smoking approximately 25 years ago, estimates consumption of one pack per day for 25 years. Family history: Sr. diagnosed with breast cancer at age 43, at 42; maternal aunts 2 with breast cancer as well as several cousins. Mother had lung cancer. On physical examination: Age-appropriate female resting comfortably in her ICU bed The patient has been afebrile, pulse 103-105; Brittany rate 16 blood pressure 134 /71. SPO2 on 4 L/m nasal cannula 95% Skin is warm, no obvious jaundice Lungs are clear bilaterally Abdomen: Soft, nontender. Impression: 71-year-old female admitted after presenting to [place] [facility] with shortness of breath and profound anemia. History of right breast cancer with synchronous lung cancer metastatic to the right hip. More recent history, 12/09/2015, of profound nosebleed, enduring for over 5 hours per the patient. Patient with known history of anemia for which oral iron has been initiated. The newly diagnosed anemia is likely due to the acute nosebleed superimposed on chronic anemia and bone marrow suppression. Patient's history anticoagulation also a contributing factor. Recent colonoscopy, 06/2016, demonstrated no colon abnormalities. Repeat colonoscopy not likely to be informative. EGD can be considered if there is evidence of falling hemoglobin/hematocrit post transfusion. The patient is willing to consider this EGD if necessary but presently describes a desire to eat rather than undergo EGD. Plan: Will follow with you; possible EGD in the next day or 2, dependent on the patient's response to current therapy. Past Med Surg Social Fam HX - Past Medical History Medical history: arthritis, cancer (Invasive ductal carcinoma. Synchronous metastatic lung cancer.), CVA, DVT, diabetes, GERD, GI bleed (Peptic ulcer disease history. External hemorrhoids. Diverticular disease.), hyperlipidemia , hypertension, malignancy (Metastatic breast cancer and synchronous metastatic lung cancer.), osteoporosis, TIA, other (Positional dizziness/vertigo. Antiphospholipid antibody syndrome. Long-standing chronic warfarin therapy.) Psychiatric history: anxiety, depression, other - Past Surgical History Surgical History: appendectomy, breast surgery, cancer surgery, cataract, cholecystectomy, hysterectomy, orthopedic, other, YANET/BSO, other (Surgery 2 at ages 1 and 10. Total abdominal bilateral salpingo-oophorectomy and hysterectomy 1977. Appendectomy. Laparoscopic cholecystectomy 1999. Cardiac catheterization 1998. Pre-needle localization, excisional biopsy left breast 1996-benign. Shoulder replacement surgeries 2009 2010. PML/excision carcinoma right breast with pathology analysis margins (partial mastectomy) and right axillary node biopsy 2014. Colonoscopy.) - Social History Smoking Status: Former smoker Smokeless Tobacco Status: No Alcohol use: none Drug use: none Medications and Allergies Albuterol Sulfate [Proair HFA] 2 puff IH Q6HR PRN 06/12/15 [History] Amlodipine Besylate [Norvasc] 5 mg PO DAILY 06/12/15 [History] Atorvastatin [Lipitor] 40 mg PO HS 06/12/15 [History] GlyBURIDE [Diabeta] 5 mg PO BID 06/12/15 [History] LevETIRAcetam [Keppra] 500 mg PO BID 06/12/15 [History] Metformin HCl [Glucophage] 500 mg PO DAILY 06/12/15 [History] Omeprazole [PriLOSEC] 20 mg PO DAILY 06/12/15 [History] Ondansetron HCl [Zofran] 8 mg PO Q8H PRN 06/12/15 [History] Sertraline HCl [Zoloft] 150 mg PO DAILY 06/12/15 [History] Triamterene/Hydrochlorothiazid [Dyazide 37.5-25 Capsule] 1 each PO DAILY [History] Warfarin [Coumadin] 5 mg PO 1800 06/12/15 [History] Denosumab [Xgeva] 120 mg SQ AD #6 / 06/22/15 [Rx] Cyanocobalamin (Vitamin B-12) [Vitamin B-12] 1,000 mcg PO DAILY #90 tablet 02/08 [Rx] Meclizine [Antivert] 25 mg PO TID PRN #30 tablet 02/29/16 [Rx] Budesonide/Formoterol 160/4.5 [Symbicort 160/4.5] 1 puff IH BIDR #3 hfa.aer.ad 05/19/16 [Rx] LORazepam [Ativan] 1 mg PO Q6H PRN #60 tablet 05/19/16 [Rx] Cholecalciferol (D-3) [Vitamin D] 1,000 unit PO DAILY #90 tablet 06/22/16 [Rx] GuaiFENesin/Dextromethorphan [Robitussin/DM] 5 ml PO Q4HR PRN #250 ml 07/29/16 [ Rx] Calcium Carbonate/Vitamin D3 [Calcium 600-Vit D3 800 Tablet] 2 each PO DAILY # 180 tablet 09/29/16 [Rx] Benzonatate [Tessalon] 100 mg PO TID #90 capsule 11/14/16 [Rx] Folic Acid 1 mg PO DAILY #90 tablet 11/14/16 [Rx] OxyCODONE/APAP 10/325 [Percocet 10/325 MG] 1 - 2 each PO Q4HR PRN #120 tablet [Rx] Anastrozole [Arimidex] 1 mg PO DAILY 12/13/16 [History] Dexamethasone [Decadron] 8 mg PO BID 12/13/16 [History] Ferrous Sulfate 325 mg PO DAILY 12/13/16 [History] Allergies Cephalosporins Allergy (Verified 06/21/16 07:28) See Comments codeine Allergy (Verified 06/21/16 07:28) See Comments lisinopril Allergy (Verified 06/21/16 07:28) See Comments metoclopramide [From Reglan] Allergy (Verified 06/21/16 07:28) Confusion Penicillins Allergy (Verified 06/21/16 07:28) Hives Sulfa (Sulfonamide Antibiotics) Allergy (Verified 06/21/16 07:28) See Comments Review of Systems All systems PM: A 10-system review of systems was performed and is negative for pertinent findings except as documented above in the HPI. General Surgery Exam Initial Vital Signs Temp Pulse Resp BP Pulse Ox 97.8 F 115 20 148/69 100 12/13/16 16:29 12/13/16 16:29 12/13/16 16:29 12/13/16 16:29 12/13/16 16:29 Exam Initial Vital Signs Temp Pulse Resp BP Pulse Ox 97.8 F 115 20 148/69 100 12/13/16 16:29 12/13/16 16:29 12/13/16 16:29 12/13/16 16:29 12/13/16 16:29 Results - Labs 12/14/16 11:30 12/14/16 11:30 Abnormal lab results WBC 16.0 K/mcL (4.3-11.1) H 12/14/16 08:00 RBC 2.61 M/mcL (3.82-4.97) L 12/14/16 08:00 Hgb 7.2 g/dL (11.5-15.4) L 12/14/16 11:30 Hct 21.7 % (35.3-44.9) L 12/14/16 11:30 RDW 18.6 % (11.5-14.5) H 12/14/16 08:00 Neutrophils # 14.2 K/mcL (1.6-8.9) H 12/14/16 08:00 Lymphocytes # 0.2 K/mcL (0.6-4.6) L 12/14/16 08:00 Nucleated RBCs/100 WBC 0.4 /100 WBC (0) H 12/14/16 08:00 Polychromasia 1+ (Not Present) A 12/13/16 17:10 Anisocytosis 2+ (Not Present) A 12/13/16 17:10 Microcytosis Present (Not Present) A 12/13/16 17:10 PT 23.8 Seconds (9.4-12.1) H D 12/14/16 03:18 VBG pO2 88 mmHg (25-40) H 12/14/16 11:30 Sodium 133 mEq/L (136-145) L 12/14/16 11:30 BUN 33 mg/dL (7-20) H 12/14/16 11:30 BUN/Creatinine Ratio 37 (6-26) H 12/14/16 11:30 Glucose 373 mg/dL (70-99) H 12/14/16 11:30 POC Glucose 286 (58-89) H 12/14/16 13:19 Calcium 7.3 mg/dL (8.6-10.8) L 12/14/16 11:30 Ionized Calcium 0.96 mmol/L (1.15-1.35) L 12/14/16 11:30 Troponin I 2.42 ng/mL (0-0.03) H* 12/14/16 08:00 B-Natriuretic Peptide 583 pg/mL (0-100) H 12/13/16 17:10 Serum Total Protein 5.7 g/dL (6.0-8.3) L 12/13/16 20:40 Albumin 2.8 g/dL (3.5-5.0) L 12/13/16 20:40 Albumin/Globulin Ratio 1.0 (1.1-2.2) L 12/13/16 20:40 Triglycerides 255 mg/dL (< 150) H 12/14/16 03:18 VLDL Cholesterol, Calc 51 mg/dL (< 31) H 12/14/16 03:18 HDL Cholesterol 26 mg/dL (40-59) L 12/14/16 03:18 Cholesterol/HDL Ratio 6.0 (0-4.9) H 12/14/16 03:18 Beta-Hydroxybutyric Acd 0.44 mmol/L (0.02-0.27) H 12/13/16 17:10 Urine Glucose (UA) >=1000 mg/dL (Normal) H 12/13/16 17:23 Stool Occult Blood Positive (Negative) A 12/13/16 16:36 Salicylates < 5.0 mg/dL (15-30) L 12/13/16 20:40 Diabetes panel 12/13/16 12/14/16 12/14/16 Range/Units 20:40 03:18 03:18 Sodium (136-145) mEq/L Potassium (3.5-4.5) mEq/L Chloride (98-109) mEq/L Carbon Dioxide (19-29) mEq/L BUN (7-20) mg/dL Creatinine (0.57-1.11) mg/dL Glucose (70-99) mg/dL Hemoglobin A1c 5.5 ( - 5.6) % Calcium (8.6-10.8) mg/dL AST 6 (5-34) Units/L ALT 7 (0-55) Units/L Alkaline Phosphatase 59 (38-126) Units/L Albumin 2.8 L (3.5-5.0) g/dL Triglycerides 255 H (< 150) mg/dL HDL Cholesterol 26 L (40-59) mg/dL 12/14/16 12/14/16 12/14/16 Range/Units 03:18 08:00 08:00 Sodium 136 D 136 137 (136-145) mEq/L Potassium 2.8 L 3.1 L 3.1 L (3.5-4.5) mEq/L Chloride 102 101 101 (98-109) mEq/L Carbon Dioxide 19 22 23 (19-29) mEq/L BUN 30 H 29 H 29 H (7-20) mg/dL Creatinine 0.93 0.84 0.84 (0.57-1.11) mg/dL Glucose 167 H 112 H 110 H (70-99) mg/dL Hemoglobin A1c ( - 5.6) % Calcium 7.9 L 7.7 L 7.8 L (8.6-10.8) mg/dL AST (5-34) Units/L ALT (0-55) Units/L Alkaline Phosphatase (38-126) Units/L Albumin (3.5-5.0) g/dL Triglycerides (< 150) mg/dL HDL Cholesterol (40-59) mg/dL 12/14/16 Range/Units 11:30 Sodium 133 L (136-145) mEq/L Potassium 3.6 (3.5-4.5) mEq/L Chloride 99 (98-109) mEq/L Carbon Dioxide 21 (19-29) mEq/L BUN 33 H (7-20) mg/dL Creatinine 0.90 (0.57-1.11) mg/dL Glucose 373 H (70-99) mg/dL Hemoglobin A1c ( - 5.6) % Calcium 7.3 L (8.6-10.8) mg/dL AST (5-34) Units/L ALT (0-55) Units/L Alkaline Phosphatase (38-126) Units/L Albumin (3.5-5.0) g/dL Triglycerides (< 150) mg/dL HDL Cholesterol (40-59) mg/dL Thyroid panel 12/14/16 Range/Units 03:18 TSH 0.425 (0.350-4.840) mcIU/mL Calcium panel 12/13/16 12/13/16 12/14/16 Range/Units 20:40 20:40 03:18 Calcium 7.9 L (8.6-10.8) mg/dL Phosphorus 3.8 2.5 (2.3-4.7) mg/dL Albumin 2.8 L (3.5-5.0) g/dL 12/14/16 12/14/16 12/14/16 Range/Units 08:00 08:00 11:30 Calcium 7.7 L 7.8 L 7.3 L (8.6-10.8) mg/dL Phosphorus 2.6 2.7 (2.3-4.7) mg/dL Albumin (3.5-5.0) g/dL Pituitary panel 12/14/16 12/14/16 12/14/16 Range/Units 03:18 03:18 08:00 Sodium 136 D 136 (136-145) mEq/L Potassium 2.8 L 3.1 L (3.5-4.5) mEq/L Chloride 102 101 (98-109) mEq/L Carbon Dioxide 19 22 (19-29) mEq/L BUN 30 H 29 H (7-20) mg/dL Creatinine 0.93 0.84 (0.57-1.11) mg/dL Glucose 167 H 112 H (70-99) mg/dL Calcium 7.9 L 7.7 L (8.6-10.8) mg/dL TSH 0.425 (0.350-4.840) mcIU/mL 12/14/16 12/14/16 Range/Units 08:00 11:30 Sodium 137 133 L (136-145) mEq/L Potassium 3.1 L 3.6 (3.5-4.5) mEq/L Chloride 101 99 (98-109) mEq/L Carbon Dioxide 23 21 (19-29) mEq/L BUN 29 H 33 H (7-20) mg/dL Creatinine 0.84 0.90 (0.57-1.11) mg/dL Glucose 110 H 373 H (70-99) mg/dL Calcium 7.8 L 7.3 L (8.6-10.8) mg/dL TSH (0.350-4.840) mcIU/mL Adrenal panel 12/13/16 12/14/16 12/14/16 Range/Units 20:40 03:18 08:00 Sodium 136 D 136 (136-145) mEq/L Potassium 2.8 L 3.1 L (3.5-4.5) mEq/L Chloride 102 101 (98-109) mEq/L Carbon Dioxide 19 22 (19-29) mEq/L BUN 30 H 29 H (7-20) mg/dL Creatinine 0.93 0.84 (0.57-1.11) mg/dL Glucose 167 H 112 H (70-99) mg/dL Calcium 7.9 L 7.7 L (8.6-10.8) mg/dL Total Bilirubin 1.0 (0.2-1.2) mg/dL AST 6 (5-34) Units/L ALT 7 (0-55) Units/L Alkaline Phosphatase 59 (38-126) Units/L Albumin 2.8 L (3.5-5.0) g/dL 12/14/16 12/14/16 Range/Units 08:00 11:30 Sodium 137 133 L (136-145) mEq/L Potassium 3.1 L 3.6 (3.5-4.5) mEq/L Chloride 101 99 (98-109) mEq/L Carbon Dioxide 23 21 (19-29) mEq/L BUN 29 H 33 H (7-20) mg/dL Creatinine 0.84 0.90 (0.57-1.11) mg/dL Glucose 110 H 373 H (70-99) mg/dL Calcium 7.8 L 7.3 L (8.6-10.8) mg/dL Total Bilirubin (0.2-1.2) mg/dL AST (5-34) Units/L ALT (0-55) Units/L Alkaline Phosphatase (38-126) Units/L Albumin (3.5-5.0) g/dL All other labs normal. Consult Discharge Plan - Plan Referrals: Liberty Vides MD [Primary Care Provider] -
--- NOTE | 2016-12-14 15:56 | Palliative - Consult Note ---
Date of Encounter: 12/14/16 Time of Encounter: 15:45 - Assessment and Plan (1) Cancer related pain Current Visit: Yes Status: Chronic Assessment and plan: Patient has Oxycodone and IV MOrphine ordered for pain. Utilized Morphine x1 last 24 hours. Monitor (2) Anxiety Current Visit: No Status: Chronic Assessment and plan: Has IV Ativan PRN - utilized x1 last 24 hours. continue and monitor (3) Counseling regarding advanced care planning and goals of care Current Visit: Yes Status: Acute Assessment and plan: Discussed goals of care with pt. completed advanced directives and named sonAkira primary power of contracts attorney. Patient currently raising 10 yr old great grandson - we had discussion as far as arrangements for him if she would get to the point she could not care for him, and her and family have been discussing this. Discussed code status - she does not want heroic measures for cardiac arrest and does not desire to be intubated or placed on ventilator. Code status change to DNR/DNI and state forms completed and provided copies to pt/ family. (4) Acute blood loss anemia Current Visit: Yes Status: Acute (5) Lung cancer Current Visit: No Status: Chronic Qualifiers: Laterality: right Lung location: upper lobe of lung Qualified Code(s): C34.11 - Malignant neoplasm of upper lobe, right bronchus or lung Palliative-CN HPI - Data of Consult Consult date: 12/14/16 Requesting Physician: Shelly Aguila MD Primary Care Provider: Liberty Vides MD - Consult Narrative History of present illness: Ms. Mars is a 71 year old female who was sent to hospital from [place] [facility] and found to have elevated blood sugar and low hemoglobin 3.7. She was admitted and being cared for in ICU. Cardiology has been following patient as she had elevated troponin thought to be from demand. She has reported a nose bleed a few days ago that lasted approximately 5 hours. She was diagnosed with breast cancer 12/2014 and currently stable on Arimidex therapy, then diagnosed 02/2015 with nonsmall cell lung cancer with bone mets and has had radiation to right hip to help with pain control and remains on maintenance chemotherapy. Currently, Dr. Santos from [facility] has evaluated pt. She does not want scope done unless absolutely necessary. Dr. Santos states colonoscopy few months back was clear. Received transfusion yesterday and Hgb stable today. She understands that her cancer is not curable. Palliative was consulted to address goals of care/code status and assist with symptom management. CC: Shelly Aguila MD Past Med Surg Social Fam HX - Past Medical History Medical history: arthritis, cancer (Invasive ductal carcinoma. Synchronous metastatic lung cancer.), CVA, DVT, diabetes, GERD, GI bleed (Peptic ulcer disease history. External hemorrhoids. Diverticular disease.), hyperlipidemia , hypertension, malignancy (Metastatic breast cancer and synchronous metastatic lung cancer.), osteoporosis, TIA, other (Positional dizziness/vertigo. Antiphospholipid antibody syndrome. Long-standing chronic warfarin therapy.) Psychiatric history: anxiety, depression, other - Past Surgical History Surgical History: appendectomy, breast surgery, cancer surgery, cataract, cholecystectomy, hysterectomy, orthopedic, other, YANET/BSO, other (Surgery 2 at ages 1 and 10. Total abdominal bilateral salpingo-oophorectomy and hysterectomy 1977. Appendectomy. Laparoscopic cholecystectomy 1999. Cardiac catheterization 1998. Pre-needle localization, excisional biopsy left breast 1996-benign. Shoulder replacement surgeries 2009 2010. PML/excision carcinoma right breast with pathology analysis margins (partial mastectomy) and right axillary node biopsy 2014. Colonoscopy.) - Social History Smoking Status: Former smoker Smokeless Tobacco Status: No Alcohol use: none Drug use: none Medications and Allergies Albuterol Sulfate [Proair HFA] 2 puff IH Q6HR PRN 06/12/15 [History] Amlodipine Besylate [Norvasc] 5 mg PO DAILY 06/12/15 [History] Atorvastatin [Lipitor] 40 mg PO HS 06/12/15 [History] GlyBURIDE [Diabeta] 5 mg PO BID 06/12/15 [History] LevETIRAcetam [Keppra] 500 mg PO BID 06/12/15 [History] Metformin HCl [Glucophage] 500 mg PO DAILY 06/12/15 [History] Omeprazole [PriLOSEC] 20 mg PO DAILY 06/12/15 [History] Ondansetron HCl [Zofran] 8 mg PO Q8H PRN 06/12/15 [History] Sertraline HCl [Zoloft] 150 mg PO DAILY 06/12/15 [History] Triamterene/Hydrochlorothiazid [Dyazide 37.5-25 Capsule] 1 each PO DAILY [History] Warfarin [Coumadin] 5 mg PO 1800 06/12/15 [History] Denosumab [Xgeva] 120 mg SQ AD #6 / 06/22/15 [Rx] Cyanocobalamin (Vitamin B-12) [Vitamin B-12] 1,000 mcg PO DAILY #90 tablet 02/08 [Rx] Meclizine [Antivert] 25 mg PO TID PRN #30 tablet 02/29/16 [Rx] Budesonide/Formoterol 160/4.5 [Symbicort 160/4.5] 1 puff IH BIDR #3 hfa.aer.ad 05/19/16 [Rx] LORazepam [Ativan] 1 mg PO Q6H PRN #60 tablet 05/19/16 [Rx] Cholecalciferol (D-3) [Vitamin D] 1,000 unit PO DAILY #90 tablet 06/22/16 [Rx] GuaiFENesin/Dextromethorphan [Robitussin/DM] 5 ml PO Q4HR PRN #250 ml 07/29/16 [ Rx] Calcium Carbonate/Vitamin D3 [Calcium 600-Vit D3 800 Tablet] 2 each PO DAILY # 180 tablet 09/29/16 [Rx] Benzonatate [Tessalon] 100 mg PO TID #90 capsule 11/14/16 [Rx] Folic Acid 1 mg PO DAILY #90 tablet 11/14/16 [Rx] OxyCODONE/APAP 10/325 [Percocet 10/325 MG] 1 - 2 each PO Q4HR PRN #120 tablet [Rx] Anastrozole [Arimidex] 1 mg PO DAILY 12/13/16 [History] Dexamethasone [Decadron] 8 mg PO BID 12/13/16 [History] Ferrous Sulfate 325 mg PO DAILY 12/13/16 [History] Allergies Cephalosporins Allergy (Verified 06/21/16 07:28) See Comments codeine Allergy (Verified 06/21/16 07:28) See Comments lisinopril Allergy (Verified 06/21/16 07:28) See Comments metoclopramide [From Reglan] Allergy (Verified 06/21/16 07:28) Confusion Penicillins Allergy (Verified 06/21/16 07:28) Hives Sulfa (Sulfonamide Antibiotics) Allergy (Verified 06/21/16 07:28) See Comments All systems: reviewed and no additional remarkable complaints except as stated ( right hip pain, generalized weakness, poor appetite, nosebleed) Palliative Care-Exam - Constitutional Vitals: Temp Pulse Resp BP Pulse Ox 97.3 F L 103 16 134/71 95 12/14/16 11:16 12/14/16 15:00 12/14/16 15:00 12/14/16 15:00 12/14/16 15:00 General appearance: Present: no acute distress - Head Head Exam: Present: normal inspection, normocephalic - Eye Eye exam: Present: normal appearance, PERRL - Neck Neck exam: Present: full ROM - Expanded Respiratory Exam Location: decreased breath sounds: Left, Right, Lower - Cardiovascular Cardiovascular exam: Present: +S1, +S2 - GI/Abdominal Exam GI/Abdominal exam: Present: normal bowel sounds, soft - Catheter Type: Urethral (Raygoza) Additional comments: Light yellow urine - Extremities Exam Extremities exam: Present: normal capillary refill, normal inspection - Neurological Exam Neurological exam: Present: alert, oriented X3, strengths equal and symetr throughout - Skin Skin exam: Present: dry, pallor, warm Internal Medicine - CN: Reslt - Labs CBC & Chem 7: 12/14/16 11:30 12/14/16 11:30 Labs: Short CBC 12/14/16 12/14/16 12/14/16 Range/Units 02:24 08:00 11:30 WBC 16.0 H (4.3-11.1) K/mcL Hgb 4.8 L* 7.7 L D 7.2 L (11.5-15.4) g/dL Hct 14.3 L* 22.8 L 21.7 L (35.3-44.9) % Plt Count 206 (140-400) K/mcL Neutrophils # 14.2 H (1.6-8.9) K/mcL BMP 12/14/16 12/14/16 12/14/16 03:18 08:00 08:00 Sodium 136 D 136 137 Potassium 2.8 L 3.1 L 3.1 L Chloride 102 101 101 Carbon Dioxide 19 22 23 BUN 30 H 29 H 29 H Creatinine 0.93 0.84 0.84 Glucose 167 H 112 H 110 H Calcium 7.9 L 7.7 L 7.8 L 12/14/16 11:30 Sodium 133 L Potassium 3.6 Chloride 99 Carbon Dioxide 21 BUN 33 H Creatinine 0.90 Glucose 373 H Calcium 7.3 L Cardiac Enzymes 12/13/16 12/14/16 12/14/16 Range/Units 20:40 03:18 08:00 Troponin I 0.44 H* 2.14 H* 2.42 H* (0-0.03) ng/mL Liver Function 12/13/16 Range/Units 20:40 Total Bilirubin 1.0 (0.2-1.2) mg/dL Direct Bilirubin 0.3 (0.0-0.5) mg/dL AST 6 (5-34) Units/L ALT 7 (0-55) Units/L Alkaline Phosphatase 59 (38-126) Units/L Albumin 2.8 L (3.5-5.0) g/dL - ABG Interpretation ABG results: PT/INR, D-dimer PT 23.8 Seconds (9.4-12.1) H D 12/14/16 03:18 - Impressions Impressions Chest X-Ray 12/14/16 05:54 IMPRESSION: New pulmonary edema. D/ / Clifford Wesley MD / Clifford Wesley MD Interpreting Provider: Clifford Wesley MD Consult Discharge Plan - Plan Referrals: Liberty Vides MD [Primary Care Provider] - Palliative Quality Palliative Quality: Screen for Code Status: Yes, Screen for Goals of Care: Yes, Screen for Pain: Yes, If Pain Regimen Started, Initiate Bowel Regimen: Yes, Screen for Nausea/Vomitting: Yes Code Status: 12/14/16 15:14 DNR [Resuscitation Status: Active] [RES] Routine Comment: Resuscitation Status: [id number]
--- NOTE | 2016-12-14 16:36 | Oncology Inp Consult Note ---
Date of Encounter: 12/15/16 Time of Encounter: 17:00 Assessment and Plan (1) Acute blood loss anemia Status: Acute Assessment and plan: The patient presented at cancer center yesterday in my clinic with high blood sugar of 562, vomiting, lethargy, confusion. All signs toward diabetic ketoacidosis. The patient has no glucometer, and does not check her blood sugars on a regular basis. While EMS loading her in the truck yesterday, Hgb from cancer center lab came back at 3.8. She had a nose bleed 6 days ago that "lasted all day" according to the patient and her son at the bedside. She had no further nosebleeds after this event. At the time, she was on coumadin , being managed by our coumadin clinic. Patient with a remote diagnosis of antiphospholipid antibody syndrome first noted during evaluation of a previous CVA. She has been on long-standing anticoagulation with Coumadin with no bleeding issues or other complications. Antiphospholipid panel was repeated after cancer diagnosis but most recent test is uninterpretable since it was done while on Coumadin. Continue to hold coumadin. Patient and RN at bedside stated she had a minor nosebleed earlier in the shift. Cardiology has seen her for demand ischemia. Continue serial H&H and transfuse as needed. [place] goal is 8.0 or greater, platelets greater than 20. Dr Santos considering EGD in 2 days once patient stabilized. Colonoscopy a few months ago with him looked good. Dr Cutler negotiations director with me, he agrees with above plan. (2) Lung cancer Status: Chronic Assessment and plan: The patient's last pemetrexed chemo dose with denosumab on 11/29/16. We would not expect a drop in her Hgb from treatment 2 weeks ago for a maintenance chemo agent she has been taking for quite some time. Qualifiers: Laterality: right Lung location: upper lobe of lung Qualified Code(s): C34.11 - Malignant neoplasm of upper lobe, right bronchus or lung (3) DKA (diabetic ketoacidoses) Status: Acute Assessment and plan: The patient is typically in poor compliance with her diabetes. She does not have a working glucometer at home. She does not check her blood sugars regularly according to her family at bedside. I will order museum educator if it has not been done already. They can give her a glucometer and work with her as an outpatient as well. Qualifiers: Diabetes mellitus type: type 2 Diabetes mellitus complication detail: without coma Qualified Code(s): E13.10 - Other specified diabetes mellitus with ketoacidosis without coma (4) Breast cancer, right breast Status: Acute Assessment and plan: Surgeon: Dr. Santos Surgery: right lumpectomy, right axillary sentinel node biopsy-12/31/14. Pathology: 1.6 cm invasive ductal carcinoma. 2 lymph nodes examined were negative for malignancy. Margins were adequate and negative. No other high risk features. Staging: [id number] 1A, superiorly in the right breast. ER/IN positive and HER-2 negative. She continues daily arimidex anti-hormone therapy for the next several years (5 years total) Qualifiers: Breast location: upper outer quadrant of breast Patient sex: female Qualified Code(s): C50.411 - Malignant neoplasm of upper-outer quadrant of right female breast - Data of Consult Patient: known to practice within the last 3 years Consult date: 12/14/16 Requesting Physician: Shelly Aguila MD Primary Care Provider: Liberty Vides MD - Consult Narrative Reason for consult: Lung cancer with profound blood loss anemia History of present illness: Ms. Mars is a 71 year old female well know to our oncology practice. She is followed for synchronous right-sided breast cancer and metastatic lung cancer. She was referred to us by Dr. Santos for breast cancer adjuvant therapy recommendations. Patient presented with abnormal screening mammogram 12/02/14 which showed a 1 cm asymmetric nodule superiorly in the right breast. Biopsy 12/15/14: grade 1 invasive ductal carcinoma -ER/IN positive and HER-2 negative. Surgeon: Dr. Santos Surgery: right lumpectomy, right axillary sentinel node biopsy-12/31/14. Pathology: 1.6 cm invasive ductal carcinoma. 2 lymph nodes examined were negative for malignancy. Margins were adequate and negative. No other high risk features. Staging: [id number] 1A She's been on adjuvant endocrine therapy (Arimidex) since 02/09/15. Treatment planned for 5 years. She has known osteoporosis based on DEXA scan 01/27/15 showing right femoral neck T score of-2.9. She's receiving appropriate bone health measures including Caltrate plus D and Xgeva. She was found by Dr. Esquivel to have a right lung nodule during planning of adjuvant breast irradiation. Chest CT 02/20/15 showed a 1.3 cm spiculated nodule in the right upper lobe. PET/CT 02/25/15 hypermetabolic right upper lobe nodule. There was an additional hypermetabolic, mass like consolidation in the right lower lobe paravertebral region and a hypermetabolic, right iliac mass within the superior acetabulum. Brain MRI 03/20/15 was negative for metastatic disease. CT-guided biopsy of the right iliac crest 03/03/15 revealed an adenocarcinoma that was CK 7, TTF-1, Napsin -A positive indicating metastasis from lung primary. Biopsy of right upper lobe mass 03/27/15 revealed a moderately differentiated adenocarcinoma compatible with lung primary. 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 PDL 1 staining on her lung specimen showed a low propensity score (1-10%) She received palliative radiation to painful right hip metastasis. She received 4 cycles of carboplatin plus Alimta regimen for metastatic lung cancer. She received palliative SBRT to residual right upper lobe solitary malignancy which was completed 07/21/15. She started Alimta maintenance every 4 weeks on 08/14/15. CT chest abdomen pelvis and bone scan 11/30/16 compatible with stable disease. No evidence of residual/recurrent pulmonary/abdominal malignancy. Stable osteoblastic lesion in the bony pelvis. Sclerotic bone disease right superior acetabulum on bone scan. No e/o new mets. She continues to be on Alimta maintenance. Most recent dose was given on 2016. She is also being seen by radiation therapy regarding pain in the right hip. Colonoscopy 06/21/[address] Santos showed nonthrombosed external hemorrhoids, diverticular disease. Unremarkable otherwise. 10 year follow-up recommended. Remote diagnosis of antiphospholipid antibody syndrome first noted during evaluation of a previous CVA. She has been on long-standing anticoagulation with Coumadin with no bleeding issues or other complications. Coumadin is managed by the anticoagulation clinic. Antiphospholipid panel was repeated after cancer diagnosis but most recent test is uninterpretable since it was done while on Coumadin. Acutely ill 12/13/16, came [facility] for complaints of vomiting , diarrhea, confusion, dizziness, tremors of upper extremities, cold intolerance. Patient had a nosebleed 5 days ago, "it bled on and off all day long" Patient was very dehydrated on exam with dry oral membranes. She is pale yellow/ ashen skin tone. She had moderate tremors of upper extremities and difficulty speaking. Blood glucose was 562, she did not take glyburide or metformin today. With her clinical presentation, I called EMS immediately. While waiting, CBC, CMP, type and cross, ferritin and iron studies drawn at [facility]. On EMS arrival, CBC resulted Hgb 3.8, and WBC 19.6. I called physician negotiations director in ER and gave report with dangerously low Hgb. Past Med Surg Social Fam HX - Past Medical History Medical history: arthritis, cancer (Invasive ductal carcinoma. Synchronous metastatic lung cancer.), CVA, DVT, diabetes, GERD, GI bleed (Peptic ulcer disease history. External hemorrhoids. Diverticular disease.), hyperlipidemia , hypertension, malignancy (Metastatic breast cancer and synchronous metastatic lung cancer.), osteoporosis, TIA, other (Positional dizziness/vertigo. Antiphospholipid antibody syndrome. Long-standing chronic warfarin therapy.) Psychiatric history: anxiety, depression, other - Past Surgical History Surgical History: appendectomy, breast surgery, cancer surgery, cataract, cholecystectomy, hysterectomy, orthopedic, other, YANET/BSO, other (Surgery 2 at ages 1 and 10. Total abdominal bilateral salpingo-oophorectomy and hysterectomy 1977. Appendectomy. Laparoscopic cholecystectomy 1999. Cardiac catheterization 1998. Pre-needle localization, excisional biopsy left breast 1996-benign. Shoulder replacement surgeries 2009 2010. PML/excision carcinoma right breast with pathology analysis margins (partial mastectomy) and right axillary node biopsy 2014. Colonoscopy.) - Social History Smoking Status: Former smoker Smokeless Tobacco Status: No Alcohol use: none Drug use: none Medications and Allergies Albuterol Sulfate [Proair HFA] 2 puff IH Q6HR PRN 06/12/15 [History] Amlodipine Besylate [Norvasc] 5 mg PO DAILY 06/12/15 [History] Atorvastatin [Lipitor] 40 mg PO HS 06/12/15 [History] GlyBURIDE [Diabeta] 5 mg PO BID 06/12/15 [History] LevETIRAcetam [Keppra] 500 mg PO BID 06/12/15 [History] Metformin HCl [Glucophage] 500 mg PO DAILY 06/12/15 [History] Omeprazole [PriLOSEC] 20 mg PO DAILY 06/12/15 [History] Ondansetron HCl [Zofran] 8 mg PO Q8H PRN 06/12/15 [History] Sertraline HCl [Zoloft] 150 mg PO DAILY 06/12/15 [History] Triamterene/Hydrochlorothiazid [Dyazide 37.5-25 Capsule] 1 each PO DAILY [History] Warfarin [Coumadin] 5 mg PO 1800 06/12/15 [History] Denosumab [Xgeva] 120 mg SQ AD #6 / 06/22/15 [Rx] Cyanocobalamin (Vitamin B-12) [Vitamin B-12] 1,000 mcg PO DAILY #90 tablet 02/08 [Rx] Meclizine [Antivert] 25 mg PO TID PRN #30 tablet 02/29/16 [Rx] Budesonide/Formoterol 160/4.5 [Symbicort 160/4.5] 1 puff IH BIDR #3 hfa.aer.ad 05/19/16 [Rx] LORazepam [Ativan] 1 mg PO Q6H PRN #60 tablet 05/19/16 [Rx] Cholecalciferol (D-3) [Vitamin D] 1,000 unit PO DAILY #90 tablet 06/22/16 [Rx] GuaiFENesin/Dextromethorphan [Robitussin/DM] 5 ml PO Q4HR PRN #250 ml 07/29/16 [ Rx] Calcium Carbonate/Vitamin D3 [Calcium 600-Vit D3 800 Tablet] 2 each PO DAILY # 180 tablet 09/29/16 [Rx] Benzonatate [Tessalon] 100 mg PO TID #90 capsule 11/14/16 [Rx] Folic Acid 1 mg PO DAILY #90 tablet 11/14/16 [Rx] OxyCODONE/APAP 10/325 [Percocet 10/325 MG] 1 - 2 each PO Q4HR PRN #120 tablet [Rx] Anastrozole [Arimidex] 1 mg PO DAILY 12/13/16 [History] Dexamethasone [Decadron] 8 mg PO BID 12/13/16 [History] Ferrous Sulfate 325 mg PO DAILY 12/13/16 [History] Allergies Cephalosporins Allergy (Verified 06/21/16 07:28) See Comments codeine Allergy (Verified 06/21/16 07:28) See Comments lisinopril Allergy (Verified 06/21/16 07:28) See Comments metoclopramide [From Reglan] Allergy (Verified 06/21/16 07:28) Confusion Penicillins Allergy (Verified 06/21/16 07:28) Hives Sulfa (Sulfonamide Antibiotics) Allergy (Verified 06/21/16 07:28) See Comments Constitutional: Present: fatigue, weakness Nose, mouth and throat: Present: dry mouth Respiratory: Present: dyspnea Oncology - Exam - Constitutional Vitals: Temp Pulse Resp BP Pulse Ox 97.3 F L 103 16 134/71 95 12/14/16 11:16 12/14/16 15:00 12/14/16 15:58 12/14/16 15:00 12/14/16 15:58 General appearance: average body habitus, cooperative, no acute distress - Head Head exam: Present: atraumatic, normal inspection - Eye Eye exam: Present: normal appearance, PERRL - ENT ENT exam: Present: mucous membranes moist - Neck Neck exam: Present: full ROM, normal inspection - Respiratory Respiratory exam: Present: decreased breath sounds - Cardiovascular Cardiovascular exam: Present: tachycardia - GI/Abdominal GI/Abdominal exam: Present: soft - Extremities Exam Extremities exam: Present: full ROM, normal inspection - Neurological Exam Neurological exam: Present: alert, CN II-XII intact, normal gait, oriented X3, no focal deficits - Psychiatric Psychiatric exam: Present: normal affect - Skin Skin exam: Present: dry, intact, pallor Oncology - Results - Labs Labs: Short CBC 12/14/16 12/14/16 12/14/16 Range/Units 02:24 08:00 11:30 WBC 16.0 H (4.3-11.1) K/mcL Hgb 4.8 L* 7.7 L D 7.2 L (11.5-15.4) g/dL Hct 14.3 L* 22.8 L 21.7 L (35.3-44.9) % Plt Count 206 (140-400) K/mcL Neutrophils # 14.2 H (1.6-8.9) K/mcL BMP 12/14/16 12/14/16 12/14/16 03:18 08:00 08:00 Sodium 136 D 136 137 Potassium 2.8 L 3.1 L 3.1 L Chloride 102 101 101 Carbon Dioxide 19 22 23 BUN 30 H 29 H 29 H Creatinine 0.93 0.84 0.84 Glucose 167 H 112 H 110 H Calcium 7.9 L 7.7 L 7.8 L 12/14/16 11:30 Sodium 133 L Potassium 3.6 Chloride 99 Carbon Dioxide 21 BUN 33 H Creatinine 0.90 Glucose 373 H Calcium 7.3 L Cardiac Enzymes 12/13/16 12/14/16 12/14/16 Range/Units 20:40 03:18 08:00 Troponin I 0.44 H* 2.14 H* 2.42 H* (0-0.03) ng/mL Liver Function 12/13/16 Range/Units 20:40 Total Bilirubin 1.0 (0.2-1.2) mg/dL Direct Bilirubin 0.3 (0.0-0.5) mg/dL AST 6 (5-34) Units/L ALT 7 (0-55) Units/L Alkaline Phosphatase 59 (38-126) Units/L Albumin 2.8 L (3.5-5.0) g/dL Consult Discharge Plan - Plan Referrals: Liberty Vides MD [Primary Care Provider] - - Attending Attestation I examined this patient and my medical decision-making was reviewed with the SUPERVISOR ORCHARD/PA/Advanced Practice Nurse/Resident Physician. I agree with the documented findings, disposition and treatment plan as described except to the extent set forth below.
[2016-12-14 17:20] LABS: Hematocrit 20.8 % (35.3-44.9); Hemoglobin 6.8 g/dL (11.5-15.4)
[2016-12-14] MEDS ORDERED: Insulin LISPRO 300 UNITS/3 ML VIAL SQ SCH (21:00)
[2016-12-14] MEDS: Insulin DETEMIR 100 UNIT/ML X5UNITS SQ SCH (21:34)
[2016-12-15] MEDS ORDERED: Furosemide 20 MG/2 ML VIAL IVP ONE (03:20)
[2016-12-15] MEDS: Ipratropium/Albuterol Neb 3 ML IH SCH ×4 (03:53→22:45)
[2016-12-15 04:21] LABS: Hematocrit 27.2 % (35.3-44.9)
[2016-12-15 04:24] LABS: Hemoglobin 9.2 g/dL (11.5-15.4)
[2016-12-15 04:28] LABS: INR 1.5
[2016-12-15 04:35] LABS: BUN/Creatinine Ratio 42 (6-26); Blood Urea Nitrogen 30 mg/dL (7-20); Calcium 7.3 mg/dL (8.6-10.8); Carbon Dioxide 22 mEq/L (19-29); Chloride 105 mEq/L (98-109); Glucose 124 mg/dL (70-99); Osmolality,Calculated 292 (280-300); Potassium 3.6 mEq/L (3.5-4.5); Sodium 137 mEq/L (136-145); eGFR For African Americans > 60 (> 60); eGFR For Non-African Americans > 60 (> 60)
--- NOTE | 2016-12-15 07:58 | Internal Med Progress Note ---
Date of Encounter: 12/15/16 Time of Encounter: 07:56 - Assessment and plan (1) Elevated troponin Current Visit: Yes Status: Acute Assessment and plan: this is likely demand ischemia due to acute anemia. Troponins currently trending down after reaching a maximum of 2.4. Continue telemetry monitoring. Echocardiogram shows 50-55% ejection fraction, indeterminate diastolic function , LV segments were not well visualized, moderate mitral regurgitation. Cardiology appreciated-agree with current management. (2) Acute blood loss anemia Current Visit: Yes Status: Acute Assessment and plan: likely related to epistaxis but cannot rule out GI bleed. Held anticoagulation with Coumadin. Received 4 units PRBC transfusion, hemoglobin improved to 7.7. Noted to have another episode of epistaxis, that was self-limited. Plan to transfuse 2 more units PRBC today. Surgery consult appreciated, plan for EGD in a.m. (3) Coumadin toxicity Current Visit: Yes Status: Acute Assessment and plan: Coumadin is currently on hold. Restart after acute anemia resolves. INR currently trending down, noted to be 1.5 today. Qualifiers: Encounter type: initial encounter Injury intent: accidental or unintentional Qualified Code(s): T45.511A - Poisoning by anticoagulants, accidental (unintentional), initial encounter (4) DKA (diabetic ketoacidoses) Current Visit: Yes Status: Acute Assessment and plan: Hemoglobin A1c noted to be 5.5%. Acidosis resolved and anion gap closed. Currently tolerating oral diet. Blood sugars noted to be better controlled with the increase in basal insulin, continue sliding scale. Patient is noted to have no glucometer at home, she will be provided with 1 at the time of discharge. Continue diabetic diet. Qualifiers: Diabetes mellitus type: type 2 Diabetes mellitus complication detail: without coma Qualified Code(s): E13.10 - Other specified diabetes mellitus with ketoacidosis without coma (5) Antiphospholipid antibody syndrome Current Visit: Yes Status: Chronic Assessment and plan: noted to be on long-term anticoagulation with Coumadin at home. Presented with INR 4.9, received 2 units of fresh frozen plasma, 10 mg of vitamin K along with cryoprecipitate and INR improved to 2.2, to 1.5 today. Continue to monitor closely. Coumadin is currently on hold and will need to be restarted after Acute anemia resolves. (6) Anxiety Current Visit: Yes Status: Chronic (7) COPD (chronic obstructive pulmonary disease) Current Visit: Yes Status: Chronic Assessment and plan: not noted to be in acute exacerbation. Continue bronchodilators, supplemental oxygen as needed. Patient was noted to have mild volume overload and pulmonary edema due to multiple blood transfusions, which improved with a dose of IV Bumex. Improving oxygen requirements at this time. Continue to monitor. Qualifiers: COPD type: unspecified COPD Qualified Code(s): J44.9 - Chronic obstructive pulmonary disease, unspecified (8) Chronic pain Current Visit: Yes Status: Chronic Qualifiers: Chronic pain type: due to neoplasm Qualified Code(s): G89.3 - Neoplasm related pain (acute) (chronic) (9) Lung cancer Current Visit: Yes Status: Chronic Assessment and plan: oncology follow-up as outpatient. Palliative care consult appreciated. Patient completed a living will, named her power of patent attorney and wishes her CODE STATUS to be DNR/DNI. Qualifiers: Laterality: right Lung location: upper lobe of lung Qualified Code(s): C34.11 - Malignant neoplasm of upper lobe, right bronchus or lung (10) Metastatic breast cancer Current Visit: Yes Status: Chronic (11) Osteoporosis Current Visit: Yes Status: Chronic (12) Epistaxis Current Visit: Yes Status: Acute Assessment and plan: currently resolved. Noted to have another episode in the hospital. Melena could be a result of epistaxis. ENT consult appreciated-no intervention for now as there is no active bleeding or clots in anterior and posterior nasal cavity. Continue saline nasal spray and humidified oxygen. - Subjective Interval history: Feels better; had an episode of epistaxis yesterday but no more since then; received 2 more units of PRBC and Hb today is stable; no nausea, vomiting, dizziness, weakness; noted to require 4L/min NC O2; Assessment and plan written here due to technical issues- Acute blood loss anemia- Diabetic ketoacidosis- Epistaxis- Elevated troponin- Antiphospholipid syndrome- Supratherapeutic INR and Coumadin toxicity-plan as above. Hold Coumadin for now. Stage IV lung and breast cancer- COPD- Anxiety, depression-stable mood. Continue home medications. Continue IV PPI for GI prophylaxis; Sequential compression devices for DVT prophylaxis; avoid medical anticoagulation; - Constitutional Vitals: Temp Pulse Resp BP Pulse Ox 98.5 F 102 20 130/65 96 02/02/17 07:30 12/15/16 06:00 12/15/16 06:00 12/15/16 06:00 12/15/16 06:00 General appearance: Present: A&O X 3, answers questions appropriately - Respiratory Respiratory exam: Present: rales (faint bibasailar rales+). Absent: accessory muscle use, rhonchi, wheezes - Cardiovascular Cardiovascular exam: Present: RRR, +S1, +S2. Absent: diastolic murmur, gallop, rubs, systolic murmur - GI/Abdominal GI/Abdominal exam: Present: normal bowel sounds, soft, no peritoneal signs. Absent: distended, tenderness - Extremities Exam Extremities exam: Present: pedal edema, warm, radial pulses palpable and symetrical. Absent: calf tenderness, cyanotic Internal Medicine: Result - Labs CBC & Chem 7: 12/16/16 03:20 12/16/16 03:20 Labs: Short CBC 12/14/16 12/14/16 12/14/16 Range/Units 08:00 11:30 16:50 WBC 16.0 H (4.3-11.1) K/mcL Hgb 7.7 L D 7.2 L 6.8 L (11.5-15.4) g/dL Hct 22.8 L 21.7 L 20.8 L (35.3-44.9) % Plt Count 206 (140-400) K/mcL Neutrophils # 14.2 H (1.6-8.9) K/mcL 12/15/16 Range/Units 04:12 WBC (4.3-11.1) K/mcL Hgb 9.2 L D (11.5-15.4) g/dL Hct 27.2 L (35.3-44.9) % Plt Count (140-400) K/mcL Neutrophils # (1.6-8.9) K/mcL BMP 12/14/16 12/14/16 12/14/16 08:00 08:00 11:30 Sodium 136 137 133 L Potassium 3.1 L 3.1 L 3.6 Chloride 101 101 99 Carbon Dioxide 22 23 21 BUN 29 H 29 H 33 H Creatinine 0.84 0.84 0.90 Glucose 112 H 110 H 373 H Calcium 7.7 L 7.8 L 7.3 L 12/15/16 04:12 Sodium 137 Potassium 3.6 Chloride 105 Carbon Dioxide 22 BUN 30 H Creatinine 0.71 Glucose 124 H Calcium 7.3 L Cardiac Enzymes 12/14/16 12/14/16 12/15/16 Range/Units 08:00 18:45 04:12 Troponin I 2.42 H* 1.16 H* 0.91 H* (0-0.03) ng/mL - ABG Interpretation ABG results: PT/INR, D-dimer PT 16.0 Seconds (9.4-12.1) H 12/15/16 04:12 - VTE Documentation of Mechanical Device: Intermittent pneumatic compression device Consult Discharge Plan - Plan Referrals: Liberty Vides MD [Primary Care Provider] -
[2016-12-15] MEDS: Nystatin SUSP 5 ML UD.LIQ PO SCH ×4 (08:10→20:40)
[2016-12-15] MEDS: levETIRAcetam 250 MG TABLET PO SCH ×2 (08:10→20:38)
[2016-12-15] MEDS: Folic Acid 1 MG TABLET PO SCH (08:11)
[2016-12-15] MEDS: Benzonatate 100 MG CAPSULE PO SCH ×3 (08:11→20:37)
[2016-12-15] MEDS: Cyanocobalamin (B-12) 1,000 MCG TABLET PO SCH (08:11)
[2016-12-15] MEDS: Insulin LISPRO 300 UNITS/3 ML VIAL SQ SCH ×4 (08:12→20:43)
[2016-12-15] MEDS: Saline Nasal Spray 44 ML BOTTLE NS SCH ×4 (08:13→20:41)
[2016-12-15] MEDS: Insulin DETEMIR 100 UNIT/ML X5UNITS SQ SCH ×2 (08:17→20:44)
--- NOTE | 2016-12-15 08:44 | Cardiology Progress Note ---
<Tree Henry - Last Filed: 12/15/16 11:15> Date of Encounter: 12/15/16 Time of Encounter: 08:44 Assessment and Plan (1) Demand ischemia of myocardium Current Visit: Yes Status: Acute .- troponins downtrending after peaking at 2.42, currently is 0.91 with a normal hemoglobin 9.2, elevation likely due to demand ischemia from severe anemia - continues to deny any chest pain, lightheadedness, palpitations - dyspneic on baseline, denies any any increase shortness of breath, currently 94% RA - ECHO 12/14 was sub-optimal, showed EF 50-55%, indeterminate diastolic dysfunction, and moderate mitral regurg - patient received total of 6 units pRBCs, 2 plasma, and 1 cyro - hemoglobin currently 9.2 - INR normalized to 1.5 - continue to hold coumadin (2) Acute blood loss anemia Current Visit: Yes Status: Acute - patient with history of metastatic breast cancer to the hip and likely marrow suppresion - hemoglobin up at 9.2 following 6U pRBCs transfusion, continues to come up appropriately - INR normalized 1.5, recommend holding coumadin as she is normal sinus - possible cause of anemia is likely multifactorial from epistaxis and coumadin - continue to trend H/H and transfuse as necessary - highly recommend EGD but would follow GI/Surgery recommendations Discussion w patient/family: The assessment and plan as outlined above was discussed with the patient and/or family members who expressed understanding and agreement. All questions were answered. Thank you for involving us in the care of your patient. Please call with any questions. Subjective Principal diagnosis: severe anemia Interval history: Patient seen and examined. States she is feeling much better. Finished her breakfast, states she feels gassy but denies any chest pain, worsening shortness of breath, lightheadedness, headache, nausea, or vomiting. Reported brief episode of epistaxis yesterday. Objective Vital Signs, Last 4 Hours Temp Pulse Resp BP Pulse Ox 12/15/16 08:06 109 20 139/74 96 12/15/16 07:30 98.5 F 12/15/16 06:00 102 20 130/65 96 12/15/16 05:00 108 19 140/69 96 General: Conversant, No Apparent Distress HEENT: Atraumatic, Normocephaly, Mucus Membranes Moist Neck: Normal carotid pulses, Other (JVD 6cm) Cardiac: Reg Rate and Rhythm, Normal S1 and S2, No Murmur Lungs: Normal Breath Sounds, No Wheeze, Rales, Rhonchi Neuro: Alert and responsive, No focal deficits noted Abdomen: Soft, Non-Tender Skin: No rashes noted on visualized skin Musculoskeletal: No Chest Wall Tenderness Extremities: No Clubbing, No Cyanosis, No Edema, Normal Pulses Results 12/15/16 04:12 12/15/16 04:12 Lab Results 12/14/16 12/14/16 12/14/16 08:00 11:30 11:30 WBC 16.0 H Hgb 7.7 L D 7.2 L Hct 22.8 L 21.7 L Plt Count 206 INR Sodium 133 L Potassium 3.6 Chloride 99 Carbon Dioxide 21 BUN 33 H Creatinine 0.90 Glucose 373 H Calcium 7.3 L Magnesium 2.0 Troponin I 12/14/16 12/14/16 12/15/16 16:50 18:45 04:12 WBC Hgb 6.8 L Hct 20.8 L Plt Count INR 1.5 Sodium Potassium Chloride Carbon Dioxide BUN Creatinine Glucose Calcium Magnesium Troponin I 1.16 H* 12/15/16 12/15/16 12/15/16 04:12 04:12 04:12 WBC Hgb 9.2 L D Hct 27.2 L Plt Count INR Sodium 137 Potassium 3.6 Chloride 105 Carbon Dioxide 22 BUN 30 H Creatinine 0.71 Glucose 124 H Calcium 7.3 L Magnesium Troponin I 0.91 H* - Imaging and Cardiology Echo: report reviewed - VTE Documentation of Mechanical Device: Intermittent pneumatic compression device Consult Discharge Plan - Plan Referrals: Liberty Vides MD [Primary Care Provider] - <Justus Ayala - Last Filed: 12/15/16 11:23> Date of Encounter: 12/15/16 Assessment and Plan Discussion w patient/family: The assessment and plan as outlined above was discussed with the patient and/or family members who expressed understanding and agreement. All questions were answered. Thank you for involving us in the care of your patient. Please call with any questions. Objective Vital Signs, Last 4 Hours Temp Pulse Resp BP Pulse Ox 12/15/16 11:15 98.5 F 12/15/16 11:05 106 20 140/69 94 L 12/15/16 10:52 20 122/70 90 L 12/15/16 10:00 107 91 L 12/15/16 09:00 101 22 122/70 97 12/15/16 08:06 109 20 139/74 96 12/15/16 07:30 98.5 F Results 12/15/16 04:12 12/15/16 04:12 Lab Results 12/14/16 12/14/16 12/14/16 11:30 11:30 16:50 Hgb 7.2 L 6.8 L Hct 21.7 L 20.8 L INR Sodium 133 L Potassium 3.6 Chloride 99 Carbon Dioxide 21 BUN 33 H Creatinine 0.90 Glucose 373 H Calcium 7.3 L Magnesium 2.0 Troponin I 12/14/16 12/15/16 12/15/16 18:45 04:12 04:12 Hgb 9.2 L D Hct 27.2 L INR 1.5 Sodium Potassium Chloride Carbon Dioxide BUN Creatinine Glucose Calcium Magnesium Troponin I 1.16 H* 12/15/16 12/15/16 04:12 04:12 Hgb Hct INR Sodium 137 Potassium 3.6 Chloride 105 Carbon Dioxide 22 BUN 30 H Creatinine 0.71 Glucose 124 H Calcium 7.3 L Magnesium Troponin I 0.91 H* - Attending Attestation I examined this patient and my medical decision-making was reviewed with the CHUCKER/PA/Advanced Practice Nurse/Resident Physician. I agree with the documented findings, disposition and treatment plan as described except to the extent set forth below. Pt is doing better as anemia improved, less sob, no cp, possible source of anemia: ? nose bleed VSS JDV: 6-7 cm Chest Clear CVS no murmur gallops or rubs plan; cont to hold coumadin pt is also in NSR can transfer to tele PT OT The troponin elevation is probably secondary to demand ischemia from anemia
[2016-12-15] MEDS ORDERED: Pantoprazole 40 MG VIAL IVP SCH (09:00)
--- NOTE | 2016-12-15 09:15 | ECHO - Doppler Report ---
Echocardiogram Name: Noemy Mars Date of Study: 12/14/2016 Date: 1945 Ht: 64.0 in Medical Record#: [id number] Age: 71 Wt: 130.0 lb Gender: Female BSA: 1.63 Order #: [id number] Location: [facility] Room #: IC6 Reading Physician: Haylie Anna DO Clinical Review Nurse: Ade Valadez RDCS Ordering Physician: Ca Aguila MD Primary Physician: Liberty Vides MD Indications: Elevated Troponin Impressions: LVEF 50-55%. Not all LV segments were well visualized. Indeterminate diastolic function. Normal right ventricular size and function. Moderate mitral regurgitation. No pulmonary hypertension. Left Ventricular Wall Motion: Rest Echo Findings The mid anterior septal, mid inferior lateral, basal anterior septal and basal inferior lateral garibay were not visualized. All other wall segments showed normal motion. Findings: Study Quality * Technically sub-optimal due to poor echocardiographic windows. ECG Findings * Normal sinus rhythm. Aortic Valve * No aortic regurgitation. * Aortic valve not well visualized. * No aortic stenosis. Mitral Valve * Mildly thickened mitral valve leaflets. * Mild mitral annular calcification * Moderate mitral regurgitation. * Mildly calcified mitral valve leaflets. * No mitral stenosis. Tricuspid Valve * Tricuspid valve not well visualized. * Trace tricuspid regurgitation. * Estimated RA pressure is 8 mmHg. * Estimated RVSP is 28 mmHg. * No pulmonary hypertension. Pulmonic Valve * Pulmonic valve is not well visualized. * No pulmonic stenosis. * No pulmonic regurgitation. Pulmonary Artery * Pulmonary artery not well visualized. Right Atrium * Normal right atrial size. Left Atrium * Mildly dilated left atrium. Left Ventricle * Indeterminate diastolic function. * LVEF 50-55%. * LV size upper limits of normal. Right Ventricle * Normal right ventricular structure and function. Interatrial Septum * No evidence of PFO by color Doppler. IVC * The IVC is not dilated. * < 50% respiratory change. Pericardium * There is no pericardial effusion present. Aorta * Not well visualized. History Hypertension Diabetes Hypercholesteremia Family History of CAD 12/26/2014 a Previous Echo was performed. Measurements: BP: 134/ 71 2D Normal Values IVSd: .90 cm 0.6 - 1.0 cm LVIDd: 5.40 cm 3.7 - 5.6 cm LVPWd: .90 cm 0.6 - 1.1 cm %FS: 25.50 cm >25 % LA volume: Mitral Valve Peak E:1.16 m/sec Peak A:1.08 m/sec E/A Ratio:1.1 Peak E' Lat Gary:8.21 cm/s Peak E' Med Gary:7.58 cm/s E/E' Lat Ratio:14.1 E/E' Med Ratio:15.3 Aortic Valve AI pressure Half-time: 442.00 msec Tricuspid Valve TV Regurg Peak Grad: 20.00mmHg TV Regurg Peak Gary: 2.23m/sec Updated by Haylie Anna on 12/15/2016 9:09:21 AM electronically signed on 12/15/2016 9:10:48 AM with status of Final Wall Motion Carey: 1=Normal, 2=Hypokinesis, 3=Akinesis, 4=Dyskinesis, 5=Aneurysmal, 6=Hyperkinetic, X=Not Visualized (Blank)=Missing
[2016-12-15] MEDS ORDERED: Calcium Gluconate 1,000 MG in D5% in Water 100 ML IVPB PRN (10:12)
[2016-12-15] MEDS ORDERED: *HR* OxyCODONE Immed Rel 5 MG TABLET PO PRN (10:12)
[2016-12-15] MEDS ORDERED: Mag Hydrox/Al Hydrox/Simeth 30 ML UDC PO PRN (10:12)
[2016-12-15] MEDS ORDERED: Naloxone 0.4 MG/ML INJ IVP PRN (10:12)
[2016-12-15] MEDS ORDERED: Albuterol 2.5 MG/3 ML NEBULIZER IH PRN (10:12)
[2016-12-15] MEDS ORDERED: *HR* Dextrose 50 % in Water (Syg) 50 ML SYRINGE IVP PRN (10:12)
[2016-12-15] MEDS ORDERED: *HR* Morphine 2 MG/ML SYRINGE IVP PRN (10:12)
[2016-12-15] MEDS ORDERED: Acetaminophen 325 MG TABLET PO PRN (10:12)
[2016-12-15] MEDS ORDERED: Dextrose Gel 15 GM PO PRN ×4 (10:12)
[2016-12-15] MEDS ORDERED: Ondansetron 4 MG/2 ML VIAL IVP PRN (10:12)
[2016-12-15] MEDS ORDERED: D5% in Water 1,000 ML IV PRN (10:12)
[2016-12-15] MEDS ORDERED: *HR* LORazepam 2 MG/ML VIAL IVP PRN (10:12)
--- NOTE | 2016-12-15 11:19 | Palliative Progress Note ---
Date of Encounter: 12/15/16 Time of Encounter: 10:45 - Assessment and plan (1) Cancer related pain Current Visit: Yes Status: Chronic Assessment and plan: Continue Oxycodone PRN. Has not utilized last 24 hours. MOnitor (2) Anxiety Current Visit: No Status: Chronic Assessment and plan: No longer NPO so will change Lorazepam from IV to her po home dose. (3) Counseling regarding advanced care planning and goals of care Current Visit: Yes Status: Acute Assessment and plan: DPOA established and completed yesterday. DNR/DNI. Social service to see for other possible needs. Patient plans to resume chemotherapy. (4) Acute blood loss anemia Current Visit: Yes Status: Acute (5) Lung cancer Current Visit: No Status: Chronic Qualifiers: Laterality: right Lung location: upper lobe of lung Qualified Code(s): C34.11 - Malignant neoplasm of upper lobe, right bronchus or lung - Time Spent With Patient Total time spent is greater than 50% in coordination of care (as documented) at patient's floor/unit and/or counseling patient: 25 - 35 minutes - Subjective Interval history: Patient up in chair. No further nosebleed since yesterday. States feeling well. Does c/o some constipation and asking for dulcolax tab. On room air and transferring out of ICU when bed available - Constitutional Vitals: Abnormal lab results WBC 16.0 K/mcL (4.3-11.1) H 12/14/16 08:00 RBC 2.61 M/mcL (3.82-4.97) L 12/14/16 08:00 Hgb 9.2 g/dL (11.5-15.4) L D 12/15/16 04:12 Hct 27.2 % (35.3-44.9) L 12/15/16 04:12 RDW 18.6 % (11.5-14.5) H 12/14/16 08:00 Neutrophils # 14.2 K/mcL (1.6-8.9) H 12/14/16 08:00 Lymphocytes # 0.2 K/mcL (0.6-4.6) L 12/14/16 08:00 Nucleated RBCs/100 WBC 0.4 /100 WBC (0) H 12/14/16 08:00 Polychromasia 1+ (Not Present) A 12/13/16 17:10 Anisocytosis 2+ (Not Present) A 12/13/16 17:10 Microcytosis Present (Not Present) A 12/13/16 17:10 PT 16.0 Seconds (9.4-12.1) H 12/15/16 04:12 VBG pO2 88 mmHg (25-40) H 12/14/16 11:30 BUN 30 mg/dL (7-20) H 12/15/16 04:12 BUN/Creatinine Ratio 42 (6-26) H 12/15/16 04:12 Glucose 124 mg/dL (70-99) H 12/15/16 04:12 POC Glucose 176 (58-89) H 12/15/16 07:19 Calcium 7.3 mg/dL (8.6-10.8) L 12/15/16 04:12 Ionized Calcium 0.96 mmol/L (1.15-1.35) L 12/14/16 11:30 Troponin I 0.91 ng/mL (0-0.03) H* 12/15/16 04:12 B-Natriuretic Peptide 583 pg/mL (0-100) H 12/13/16 17:10 Serum Total Protein 5.7 g/dL (6.0-8.3) L 12/13/16 20:40 Albumin 2.8 g/dL (3.5-5.0) L 12/13/16 20:40 Albumin/Globulin Ratio 1.0 (1.1-2.2) L 12/13/16 20:40 Triglycerides 255 mg/dL (< 150) H 12/14/16 03:18 VLDL Cholesterol, Calc 51 mg/dL (< 31) H 12/14/16 03:18 HDL Cholesterol 26 mg/dL (40-59) L 12/14/16 03:18 Cholesterol/HDL Ratio 6.0 (0-4.9) H 12/14/16 03:18 Beta-Hydroxybutyric Acd 0.44 mmol/L (0.02-0.27) H 12/13/16 17:10 Urine Glucose (UA) >=1000 mg/dL (Normal) H 12/13/16 17:23 Stool Occult Blood Positive (Negative) A 12/13/16 16:36 Salicylates < 5.0 mg/dL (15-30) L 12/13/16 20:40 General appearance: Present: no acute distress - Respiratory Respiratory exam: Present: decreased breath sounds, CTAB - Cardiovascular Cardiovascular exam: Present: +S1, +S2 - GI/Abdominal GI/Abdominal exam: Present: normal bowel sounds, soft - Extremities Exam Extremities exam: Present: normal capillary refill, normal inspection Additional comments: Limited range of motion rt hip r/t metastatic disease and pain with movement - Neurological Exam Neurological exam: Present: alert, oriented X3, strengths equal and symetr throughout - Skin Skin exam: Present: dry, pallor, warm Palliative Quality Palliative Quality: Screen for Code Status: Yes, Screen for Goals of Care: Yes, Screen for Pain: Yes, If Pain Regimen Started, Initiate Bowel Regimen: Yes, Screen for Nausea/Vomitting: Yes Code Status: 12/14/16 15:14 DNR [Resuscitation Status: Active] [RES] Routine Comment: Resuscitation Status: [id number] - Labs CBC & Chem 7: 12/15/16 04:12 12/15/16 04:12 Labs: Laboratory Results - last 24 hr 12/13/16 12/13/16 12/14/16 19:22 19:24 11:30 Hgb 7.2 L Hct 21.7 L PT INR VBG pH VBG pCO2 VBG pO2 VBG HCO3 Sodium Potassium Chloride Carbon Dioxide BUN Creatinine Est GFR ( Amer) Est GFR (Non-Af Amer) BUN/Creatinine Ratio Glucose POC Glucose 490 H* 520 H* Calculated Osmolality Lactic Acid Calcium Ionized Calcium Phosphorus Magnesium Troponin I 12/14/16 12/14/16 12/14/16 11:30 11:30 11:30 Hgb Hct PT INR VBG pH 7.36 VBG pCO2 43 VBG pO2 88 H VBG HCO3 24.3 Sodium 133 L Potassium 3.6 Chloride 99 Carbon Dioxide 21 BUN 33 H Creatinine 0.90 Est GFR ( Amer) > 60 Est GFR (Non-Af Amer) > 60 BUN/Creatinine Ratio 37 H Glucose 373 H POC Glucose Calculated Osmolality 299 Lactic Acid 1.2 Calcium 7.3 L Ionized Calcium Phosphorus 2.7 Magnesium 2.0 Troponin I 12/14/16 12/14/16 12/14/16 11:30 13:19 16:46 Hgb Hct PT INR VBG pH VBG pCO2 VBG pO2 VBG HCO3 Sodium Potassium Chloride Carbon Dioxide BUN Creatinine Est GFR ( Amer) Est GFR (Non-Af Amer) BUN/Creatinine Ratio Glucose POC Glucose 286 H 361 H Calculated Osmolality Lactic Acid Calcium Ionized Calcium 0.96 L Phosphorus Magnesium Troponin I 12/14/16 12/14/16 12/14/16 16:50 18:45 18:45 Hgb 6.8 L Hct 20.8 L PT INR VBG pH VBG pCO2 VBG pO2 VBG HCO3 Sodium Potassium Chloride Carbon Dioxide BUN Creatinine Est GFR ( Amer) Est GFR (Non-Af Amer) BUN/Creatinine Ratio Glucose POC Glucose 381 H Calculated Osmolality Lactic Acid Calcium Ionized Calcium Phosphorus Magnesium Troponin I 1.16 H* 12/14/16 12/15/16 12/15/16 21:31 04:12 04:12 Hgb 9.2 L D Hct 27.2 L PT 16.0 H INR 1.5 VBG pH VBG pCO2 VBG pO2 VBG HCO3 Sodium Potassium Chloride Carbon Dioxide BUN Creatinine Est GFR ( Amer) Est GFR (Non-Af Amer) BUN/Creatinine Ratio Glucose POC Glucose 171 H Calculated Osmolality Lactic Acid Calcium Ionized Calcium Phosphorus Magnesium Troponin I 12/15/16 12/15/16 12/15/16 04:12 04:12 07:19 Hgb Hct PT INR VBG pH VBG pCO2 VBG pO2 VBG HCO3 Sodium 137 Potassium 3.6 Chloride 105 Carbon Dioxide 22 BUN 30 H Creatinine 0.71 Est GFR ( Amer) > 60 Est GFR (Non-Af Amer) > 60 BUN/Creatinine Ratio 42 H Glucose 124 H POC Glucose 176 H Calculated Osmolality 292 Lactic Acid Calcium 7.3 L Ionized Calcium Phosphorus Magnesium Troponin I 0.91 H* - ABG Interpretation ABG results: PT/INR, D-dimer PT 16.0 Seconds (9.4-12.1) H 12/15/16 04:12 Consult Discharge Plan - Plan Referrals: Liberty Vides MD [Primary Care Provider] -
[2016-12-15] MEDS ORDERED: *HR* LORazepam 1 MG TABLET PO PRN (11:29)
[2016-12-15 11:45] LABS: Hematocrit 25.6 % (35.3-44.9); Hemoglobin 8.6 g/dL (11.5-15.4)
--- NOTE | 2016-12-15 12:07 | General Surgery Progress Note ---
Date of Encounter: 12/15/16 Time of Encounter: 11:00 Subjective Patient reports: no new complaints Narrative: General Surgery: Patient seated at bedside, voicing no complaints; afebrile, 98.5; pulse 106, respirations 20, blood pressure 140/69. Patient tolerating diet, denies any nausea vomiting or abdominal pain. Hemoglobin/hematocrit 7.7/22.8 at 0800, 12/14/2016 - 6.8/20.8 at 16:50. Transfused another 2 units PBC - H&H currently 9.2/27.2. PT/INR still elevated- 16.0/1.5 Persistent concern of upper GI bleeding contributing to the patient's anemia. Colonoscopy last completed June 2016 (6 months ago) with no significant colonic findings. Patient reluctantly consider repeat colonoscopy, but is willing to consider an EGD. Recommendations: Schedule EGD in the a.m. if anticoagulation sufficiently reversed (INR less than 1.5) Have discussed these recommendations with ICU nursing staff and resident physicians. Objective Vital Signs - Last 8 Hours Temp Pulse Resp BP Pulse Ox 12/15/16 11:15 98.5 F 12/15/16 11:05 106 20 140/69 94 L 12/15/16 10:52 20 122/70 90 L 12/15/16 10:00 107 91 L 12/15/16 09:00 101 22 122/70 97 12/15/16 08:06 109 20 139/74 96 12/15/16 07:30 98.5 F 12/15/16 06:00 102 20 130/65 96 12/15/16 05:00 108 19 140/69 96 Intake and Output 12/14/16 12/15/16 12/15/16 23:59 07:59 15:59 Intake Total 680 / 680 810 / 810 590 / 590 Output Total 825 / 825 1250 / 1250 Balance -145 / -145 -440 / -440 590 / 590 Intake: IV Fluids 110 / 110 Calcium Gluconate 1,000 110 / 110 MG In Dextrose 5% 100 ML @ 50 mls/hr IVPB Q6HR PRN Rx#:[id number] Oral 240 / 240 480 / 480 480 / 480 Blood Product 320 / 320 330 / 330 Rbcs Leuko Poor As-1 320 / 320 Unit [id number] Rbcs Leuko Poor As-1 0 / 0 330 / 330 Unit [id number] Other 120 / 120 Output: Urine 825 / 825 1250 / 1250 Urethral (Raygoza) 825 / 825 Other: Meal Dinner Breakfast Percent of Meal Consumed 100% # Voids 1 Weight 57.805 kg Blood Glucose* 171 176 255 Patient Weight 12/15/16 23:59 Weight 57.805 kg - Labs 12/15/16 11:20 12/15/16 04:12 Diabetes panel 12/15/16 Range/Units 04:12 Sodium 137 (136-145) mEq/L Potassium 3.6 (3.5-4.5) mEq/L Chloride 105 (98-109) mEq/L Carbon Dioxide 22 (19-29) mEq/L BUN 30 H (7-20) mg/dL Creatinine 0.71 (0.57-1.11) mg/dL Glucose 124 H (70-99) mg/dL Calcium 7.3 L (8.6-10.8) mg/dL Calcium panel 12/15/16 Range/Units 04:12 Calcium 7.3 L (8.6-10.8) mg/dL Pituitary panel 12/15/16 Range/Units 04:12 Sodium 137 (136-145) mEq/L Potassium 3.6 (3.5-4.5) mEq/L Chloride 105 (98-109) mEq/L Carbon Dioxide 22 (19-29) mEq/L BUN 30 H (7-20) mg/dL Creatinine 0.71 (0.57-1.11) mg/dL Glucose 124 H (70-99) mg/dL Calcium 7.3 L (8.6-10.8) mg/dL Adrenal panel 12/15/16 Range/Units 04:12 Sodium 137 (136-145) mEq/L Potassium 3.6 (3.5-4.5) mEq/L Chloride 105 (98-109) mEq/L Carbon Dioxide 22 (19-29) mEq/L BUN 30 H (7-20) mg/dL Creatinine 0.71 (0.57-1.11) mg/dL Glucose 124 H (70-99) mg/dL Calcium 7.3 L (8.6-10.8) mg/dL - VTE Documentation of Mechanical Device: Intermittent pneumatic compression device Consult Discharge Plan - Plan Referrals: Liberty Vides MD [Primary Care Provider] -
[2016-12-16 03:31] LABS: Basophils % 0.1 %; Eosinophils # 0.1 K/mcL (0.0-0.6); Eosinophils % 1.1 %; Hematocrit 24.7 % (35.3-44.9); Immature Granulocytes % 2.1 % (0-4); Lymphocytes # 0.3 K/mcL (0.6-4.6); Lymphocytes % 2.9 %; Mean Corpuscular HGB Conc 32.4 g/dL (31.6-35.5); Mean Corpuscular Hemoglobin 28.1 pg (28.0-33.3); Mean Corpuscular Volume 86.7 fL (83.0-100.0); Mean Platelet Volume 9.5 fL (9.4-12.4); Monocytes # 0.8 K/mcL (0.0-1.3); Monocytes % 9.2 %; Neutrophils # 7.5 K/mcL (1.6-8.9); Platelet Count 195 K/mcL (140-400); Red Blood Count 2.85 M/mcL (3.82-4.97); Red Cell Distribution Width 18.9 % (11.5-14.5); Segmented Neutrophils % 84.6 %
[2016-12-16 03:36] LABS: INR 1.2; Prothrombin Time 12.8 Seconds (9.4-12.1)
[2016-12-16 03:44] LABS: BUN/Creatinine Ratio 34 (6-26); Blood Urea Nitrogen 22 mg/dL (7-20); Carbon Dioxide 26 mEq/L (19-29); Chloride 106 mEq/L (98-109); Glucose 70 mg/dL (70-99); Osmolality,Calculated 290 (280-300); Potassium 3.6 mEq/L (3.5-4.5); Sodium 139 mEq/L (136-145); eGFR For African Americans > 60 (> 60); eGFR For Non-African Americans > 60 (> 60)
[2016-12-16] MEDS: Ipratropium/Albuterol Neb 3 ML IH SCH ×4 (04:37→23:22)
--- NOTE | 2016-12-16 06:51 | Oncology Inp Progress Note ---
Date of Encounter: 12/16/16 Time of Encounter: 06:45 Oncology: Subj Interval history: Patient seen and examined at bedside. Chart reviewed for interval details and appreciate ongoing care by hospital team. I also reviewed most recent consultation report by Dr. Santos I appreciate his input. Patient reports feeling considerably better this morning. No further epistaxis since admission. She is scheduled for EGD by Dr. Santos later today. Previous colonoscopy June 2016 was unremarkable. She has received 6 units of RBC transfusion in addition to cryoprecipitate and plasma infusions. No other new issues. Review of systems: 12 point review of systems as noted above.All other systems are negative: Physical exam: Vital Signs Temp 97.5 F L 12/16/16 03:56 Pulse 74 12/16/16 03:56 Resp 17 12/16/16 04:37 BP 127/62 12/16/16 03:56 Pulse Ox 95 12/16/16 04:37 GENERAL: Alert and oriented, lethargic appearing. Mental Status: Affect appropriate for circumstances Skin: No rashes or petechiae. No evidence of skin malignancy Extremities: No edema. No calf swelling or tenderness. No joint deformity. Neurologic: Global weakness but no focal sensorimotor abnormalities. Results: Laboratory Last Values WBC 8.9 K/mcL (4.3-11.1) 12/16/16 03:20 RBC 2.85 M/mcL (3.82-4.97) L 12/16/16 03:20 Hgb 8.0 g/dL (11.5-15.4) L 12/16/16 03:20 Hct 24.7 % (35.3-44.9) L 12/16/16 03:20 MCV 86.7 fL (83.0-100.0) 12/16/16 03:20 MCH 28.1 pg (28.0-33.3) 12/16/16 03:20 MCHC 32.4 g/dL (31.6-35.5) 12/16/16 03:20 RDW 18.9 % (11.5-14.5) H 12/16/16 03:20 Plt Count 195 K/mcL (140-400) 12/16/16 03:20 MPV 9.5 fL (9.4-12.4) 12/16/16 03:20 Immature Gran % 2.1 % (0-4) 12/16/16 03:20 Seg Neutrophils % 84.6 % 12/16/16 03:20 Lymphocytes % 2.9 % 12/16/16 03:20 Monocytes % 9.2 % 12/16/16 03:20 Eosinophils % 1.1 % 12/16/16 03:20 Basophils % 0.1 % 12/16/16 03:20 Neutrophils # 7.5 K/mcL (1.6-8.9) 12/16/16 03:20 Lymphocytes # 0.3 K/mcL (0.6-4.6) L 12/16/16 03:20 Monocytes # 0.8 K/mcL (0.0-1.3) 12/16/16 03:20 Eosinophils # 0.1 K/mcL (0.0-0.6) 12/16/16 03:20 Basophils # 0.0 K/mcL (0.0-0.2) 12/16/16 03:20 Nucleated RBCs/100 WBC 0.4 /100 WBC (0) H 12/14/16 08:00 Polychromasia 1+ (Not Present) A 12/13/16 17:10 Anisocytosis 2+ (Not Present) A 12/13/16 17:10 Microcytosis Present (Not Present) A 12/13/16 17:10 PT 12.8 Seconds (9.4-12.1) H 12/16/16 03:20 INR 1.2 12/16/16 03:20 APTT 30.7 Seconds (26.0-36.0) 12/14/16 03:18 VBG pH 7.36 pH Units (7.32-7.42) 12/14/16 11:30 VBG pCO2 43 mmHg (41-51) 12/14/16 11:30 VBG pO2 88 mmHg (25-40) H 12/14/16 11:30 VBG HCO3 24.3 mEq/L (21-27) 12/14/16 11:30 Sodium 139 mEq/L (136-145) 12/16/16 03:20 Potassium 3.6 mEq/L (3.5-4.5) 12/16/16 03:20 Chloride 106 mEq/L (98-109) 12/16/16 03:20 Carbon Dioxide 26 mEq/L (19-29) 12/16/16 03:20 BUN 22 mg/dL (7-20) H 12/16/16 03:20 Creatinine 0.65 mg/dL (0.57-1.11) 12/16/16 03:20 Est GFR ( Amer) > 60 (> 60) 12/16/16 03:20 Est GFR (Non-Af Amer) > 60 (> 60) 12/16/16 03:20 BUN/Creatinine Ratio 34 (6-26) H 12/16/16 03:20 Glucose 70 mg/dL (70-99) 12/16/16 03:20 POC Glucose 85 (58-89) 12/16/16 05:10 Est Mean Plasma Glucose 111 mg/dl 12/14/16 03:18 Hemoglobin A1c 5.5 % (-5.6) 12/14/16 03:18 Serum Osmolality 299 mOsm/kg (280-300) 12/13/16 20:40 Calculated Osmolality 290 (280-300) 12/16/16 03:20 Lactic Acid 1.2 mmol/L (0.5-2.2) 12/14/16 11:30 Calcium 8.0 mg/dL (8.6-10.8) L 12/16/16 03:20 Ionized Calcium 0.96 mmol/L (1.15-1.35) L 12/14/16 11:30 Phosphorus 2.7 mg/dL (2.3-4.7) 12/14/16 11:30 Magnesium 2.0 mg/dL (1.6-2.6) 12/14/16 11:30 Total Bilirubin 1.0 mg/dL (0.2-1.2) 12/13/16 20:40 Direct Bilirubin 0.3 mg/dL (0.0-0.5) 12/13/16 20:40 Indirect Bilirubin 0.7 mg/dL (0.0-1.2) 12/13/16 20:40 AST 6 Units/L (5-34) 12/13/16 20:40 ALT 7 Units/L (0-55) 12/13/16 20:40 Alkaline Phosphatase 59 Units/L (38-126) 12/13/16 20:40 Troponin I 0.91 ng/mL (0-0.03) H* 12/15/16 04:12 B-Natriuretic Peptide 583 pg/mL (0-100) H 12/13/16 17:10 Serum Total Protein 5.7 g/dL (6.0-8.3) L 12/13/16 20:40 Albumin 2.8 g/dL (3.5-5.0) L 12/13/16 20:40 Globulin 2.9 g/dL (2.4-3.5) 12/13/16 20:40 Albumin/Globulin Ratio 1.0 (1.1-2.2) L 12/13/16 20:40 Triglycerides 255 mg/dL (< 150) H 12/14/16 03:18 Cholesterol 156 mg/dL (< 200) 12/14/16 03:18 LDL Cholesterol, Calc 79 mg/dL (0-99) 12/14/16 03:18 VLDL Cholesterol, Calc 51 mg/dL (< 31) H 12/14/16 03:18 HDL Cholesterol 26 mg/dL (40-59) L 12/14/16 03:18 Cholesterol/HDL Ratio 6.0 (0-4.9) H 12/14/16 03:18 Beta-Hydroxybutyric Acd 0.44 mmol/L (0.02-0.27) H 12/13/16 17:10 TSH 0.425 mcIU/mL (0.350-4.840) 12/14/16 03:18 Urine Color Yellow (Yellow) 12/13/16 17:23 Urine Clarity Clear (Clear) 12/13/16 17:23 Urine pH 5.0 pH Units (5.0-8.0) 12/13/16 17:23 Ur Specific [place] 1.021 (1.010-1.025) 12/13/16 17:23 Urine Protein Negative mg/dL (Neg-Trace) 12/13/16 17:23 Urine Glucose (UA) >=1000 mg/dL (Normal) H 12/13/16 17:23 Urine Ketones Negative mg/dL (Negative) 12/13/16 17:23 Urine Blood Negative (Negative) 12/13/16 17:23 Urine Nitrite Negative (Negative) 12/13/16 17:23 Urine Bilirubin Negative (Negative) 12/13/16 17:23 Urine Urobilinogen Normal mg/dL (Normal) 12/13/16 17:23 Ur Leukocyte Esterase Negative (Negative) 12/13/16 17:23 Ur Culture Indicated? NO (NO) 12/13/16 17:23 Stool Occult Blood Positive (Negative) A 12/13/16 16:36 Salicylates < 5.0 mg/dL (15-30) L 12/13/16 20:40 Crossmatch See Detail 12/13/16 15:49 Radiographic studies: I personally reviewed and interpreted patient's most recent imaging studies dated 12/14/16. I discussed the findings with the patient today. Chest X-Ray 12/14/16 05:54 IMPRESSION: New pulmonary edema. D/ / Clifford Wesley MD / Clifford Wesley MD Interpreting Provider: Clifford Wesley MD Impression/recommendations: Acute blood loss anemia: I appreciate ongoing management by hospital team. Hemoglobin/hematocrit much improved with supportive measures including transfusions. Blood loss anemia is possibly related to epistaxis although this is rather unusual as patient appears to have lost a total of 7 units of blood within a week. I agree with Dr. Santos that is prudent to exclude the possibility of an alternative bleeding source such as a GI source. We'll follow along with planned EGD. If EGD noninformative, it may be reasonable to repeat colonoscopy to exclude possible development of interval lesion such as angiodysplasia or AV malformation that may explain patient's bleeding problems. She does report long-standing history of melanoma which she attributes to chronic, oral iron therapy. She understands that the most common and serious side effects of anticoagulation is bleeding and this may be a contributing factor. Once her bleeding is fully evaluated, will consider resuming anticoagulation since she has a high risk for recurrent clotting episodes based on underlying diagnosis of antiphospholipid antibodies. Due to severity of her epistaxis, she will likely need ENT evaluation. If no further episodes of epistaxis, this can be completed as an outpatient if patient is medically stable for discharge otherwise. Lung cancer: Controlled on current measures. Recent scans, no evidence of lung cancer progression. I do not believe lung cancer is contributing to her current presentation. Having had several cycles of chemotherapy, it's unlikely that this is an effect of her lower intensity chemotherapy which has been well-tolerated to this point. Breast cancer: Completely resected and she is DENISE from a breast cancer perspective. I appreciate help from palliative care team with symptom management. We'll follow the patient along side you during this hospitalization but please do not hesitate to call regarding interval hematologic questions as they arise. Thank you for your excellent ongoing care for allowing us to see her while in- house. This report was created using voice recognition software and may contain errors. It was signed but not edited to expedite communication. - Constitutional Vitals: Vital Signs Temp Pulse Resp BP Pulse Ox 12/16/16 04:37 17 95 12/16/16 03:56 97.5 F L 74 18 127/62 97 12/15/16 23:56 98.4 F 91 18 137/70 97 12/15/16 22:45 15 87 L 12/15/16 19:02 98.1 F 97 18 148/67 94 L 12/15/16 16:46 22 94 L 12/15/16 15:07 103 20 145/80 92 L 12/15/16 12:43 110 20 136/58 94 L 12/15/16 11:15 98.5 F 12/15/16 11:05 106 20 140/69 94 L 12/15/16 10:52 20 122/70 90 L 12/15/16 10:00 107 91 L 12/15/16 09:00 101 22 122/70 97 12/15/16 08:06 109 20 139/74 96 12/15/16 07:30 98.5 F Intake and Output 12/15/16 12/16/16 12/16/16 16:59 00:59 08:59 Intake Total 590 / 590 250 / 250 0 / 0 Output Total 650 / 650 0 / 0 150 / 150 Balance -60 / -60 250 / 250 -150 / -150 Intake: IV Fluids 110 / 110 Calcium Gluconate 1,000 110 / 110 MG In Dextrose 5% 100 ML @ 50 mls/hr IVPB Q6HR PRN Rx#:[id number] Oral 480 / 480 250 / 250 0 / 0 Output: Urine 650 / 650 0 / 0 150 / 150 Other: Meal Breakfast Percent of Meal Consumed 100% # Voids 1 Blood Glucose* 255 215 85 Oncology: Obj Data - Labs CBC & Chem 7: 12/16/16 03:20 12/16/16 03:20 Labs: Laboratory Results - last 24 hr 12/15/16 12/15/16 12/15/16 07:19 11:18 11:20 WBC RBC Hgb 8.6 L Hct 25.6 L MCV MCH MCHC RDW Plt Count MPV Immature Gran % Seg Neutrophils % Lymphocytes % Monocytes % Eosinophils % Basophils % Neutrophils # Lymphocytes # Monocytes # Eosinophils # Basophils # PT INR Sodium Potassium Chloride Carbon Dioxide BUN Creatinine Est GFR ( Amer) Est GFR (Non-Af Amer) BUN/Creatinine Ratio Glucose POC Glucose 176 H 255 H Calculated Osmolality Calcium 12/15/16 12/15/16 12/16/16 15:23 20:30 03:20 WBC RBC Hgb Hct MCV MCH MCHC RDW Plt Count MPV Immature Gran % Seg Neutrophils % Lymphocytes % Monocytes % Eosinophils % Basophils % Neutrophils # Lymphocytes # Monocytes # Eosinophils # Basophils # PT INR Sodium 139 Potassium 3.6 Chloride 106 Carbon Dioxide 26 BUN 22 H Creatinine 0.65 Est GFR ( Amer) > 60 Est GFR (Non-Af Amer) > 60 BUN/Creatinine Ratio 34 H Glucose 70 POC Glucose 170 H 215 H Calculated Osmolality 290 Calcium 8.0 L 12/16/16 12/16/16 12/16/16 03:20 03:20 05:10 WBC 8.9 RBC 2.85 L Hgb 8.0 L Hct 24.7 L MCV 86.7 MCH 28.1 MCHC 32.4 RDW 18.9 H Plt Count 195 MPV 9.5 Immature Gran % 2.1 Seg Neutrophils % 84.6 Lymphocytes % 2.9 Monocytes % 9.2 Eosinophils % 1.1 Basophils % 0.1 Neutrophils # 7.5 Lymphocytes # 0.3 L Monocytes # 0.8 Eosinophils # 0.1 Basophils # 0.0 PT 12.8 H INR 1.2 Sodium Potassium Chloride Carbon Dioxide BUN Creatinine Est GFR ( Amer) Est GFR (Non-Af Amer) BUN/Creatinine Ratio Glucose POC Glucose 85 Calculated Osmolality Calcium - ABG Interpretation ABG results: PT/INR, D-dimer PT 12.8 Seconds (9.4-12.1) H 12/16/16 03:20 Consult Discharge Plan - Plan Referrals: Liberty Vides MD [Primary Care Provider] -
[2016-12-16] MEDS: Insulin LISPRO 300 UNITS/3 ML VIAL SQ SCH ×4 (08:05→21:30)
[2016-12-16] MEDS: Nystatin SUSP 5 ML UD.LIQ PO SCH ×4 (08:06→21:31)
[2016-12-16] MEDS: Benzonatate 100 MG CAPSULE PO SCH ×3 (08:06→21:31)
[2016-12-16] MEDS: levETIRAcetam 250 MG TABLET PO SCH ×2 (08:06→21:30)
[2016-12-16] MEDS: Saline Nasal Spray 44 ML BOTTLE NS SCH ×4 (08:07→21:31)
[2016-12-16] MEDS: Folic Acid 1 MG TABLET PO SCH (08:07)
[2016-12-16] MEDS: Cyanocobalamin (B-12) 1,000 MCG TABLET PO SCH (08:07)
[2016-12-16] MEDS: Insulin DETEMIR 100 UNIT/ML X5UNITS SQ SCH ×2 (08:12→21:33)
--- NOTE | 2016-12-16 09:42 | Cardiology Progress Note ---
Addendum entered and electronically signed by Tree Henry DO 12/16/16 11:04: ADDENDUM: Pending EGD results she will likely need to be restarted on Coumadin as she has antiphospholipid antibody syndrome Original Note: <Tree Henry - Last Filed: 12/16/16 09:39> Date of Encounter: 12/16/16 Time of Encounter: 09:39 Assessment and Plan (1) Demand ischemia of myocardium Current Visit: Yes Status: Acute .- troponins downtrended to 0.91 after correcting anemia - elevated troponin probably secondary to demand ischemia from anemia - continues to deny any chest pain, lightheadedness, palpitations - ECHO 12/14 was sub-optimal, showed EF 50-55%, indeterminate diastolic dysfunction, and moderate mitral regurg - patient received total of 6 units pRBCs, 2 plasma, and 1 cyro - hemoglobin currently 9.2 - INR normalized to 1.5 Cardiology will sign off, thank you for involving us in her care. Please re- call as needed. 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 All questions were answered. Thank you for involving us in the care of your patient. Please call with any questions. Subjective Principal diagnosis: severe anemia Interval history: Patient seen and examined at bedside. No complaints at this time. Denies BM during this stay but passing flatus. Denies any chest pain, shortness of breath , lightheadedness, hematuria, epistaxis, or coughing up blood. Goes to the bathroom with assistance. EGD scheduled later today. Objective Vital Signs, Last 4 Hours Temp Pulse Resp BP Pulse Ox 12/16/16 06:40 97.3 F L 79 20 120/59 98 General: Conversant, No Apparent Distress HEENT: Atraumatic, Normocephaly, Mucus Membranes Moist Neck: Normal carotid pulses, Other (JVD 6cm) Cardiac: Reg Rate and Rhythm, Normal S1 and S2, No Murmur Lungs: Normal Breath Sounds, No Wheeze, Rales, Rhonchi Neuro: Alert and responsive, No focal deficits noted Abdomen: Soft, Non-Tender Skin: No rashes noted on visualized skin Musculoskeletal: No Chest Wall Tenderness (port on left chest wall) Extremities: No Clubbing, No Cyanosis, No Edema, Normal Pulses Results 12/16/16 03:20 12/16/16 03:20 Lab Results 12/15/16 12/16/16 12/16/16 11:20 03:20 03:20 WBC 8.9 Hgb 8.6 L 8.0 L Hct 25.6 L 24.7 L Plt Count 195 INR Sodium 139 Potassium 3.6 Chloride 106 Carbon Dioxide 26 BUN 22 H Creatinine 0.65 Glucose 70 Calcium 8.0 L 12/16/16 03:20 WBC Hgb Hct Plt Count INR 1.2 Sodium Potassium Chloride Carbon Dioxide BUN Creatinine Glucose Calcium - VTE Documentation of Mechanical Device: Graduated compression elastic hosiery Consult Discharge Plan - Plan Referrals: Liberty Vides MD [Primary Care Provider] - <Justus Ayala - Last Filed: 12/16/16 12:39> Assessment and Plan Discussion w patient/family: The assessment and plan as outlined above was discussed with the patient and/or family members who expressed understanding and agreement. All questions were answered. Thank you for involving us in the care of your patient. Please call with any questions. Objective Vital Signs, Last 4 Hours Temp Pulse Resp BP Pulse Ox 12/16/16 12:04 99.4 F 95 16 192/61 96 12/16/16 11:59 99.4 F 93 18 178/69 98 12/16/16 11:14 97.9 F 90 22 147/69 97 Results 12/16/16 03:20 12/16/16 03:20 Lab Results 12/16/16 12/16/16 12/16/16 03:20 03:20 03:20 WBC 8.9 Hgb 8.0 L Hct 24.7 L Plt Count 195 INR 1.2 Sodium 139 Potassium 3.6 Chloride 106 Carbon Dioxide 26 BUN 22 H Creatinine 0.65 Glucose 70 Calcium 8.0 L Attestation: My signature below is to certify that this patient is under my care and that I, or nurse practitioner, or a physician's programs assistant , resident working with me, has a [id number] encounter with this patient. H and H dropping a bit, pt denies any cp, sob, pnd, VSS pale looking JVD: 6 chest: clear CVS : RRR plan a/w GI work up herson need to start coumadin at some time
--- NOTE | 2016-12-16 10:41 | Palliative Progress Note ---
Date of Encounter: 12/16/16 Time of Encounter: 10:30 - Assessment and plan (1) Cancer related pain Current Visit: Yes Status: Chronic Assessment and plan: Continue Oxycodone PRN. Still has low dose IV Morphine ordered, she had one dose yesterday. Will continue r/t NPO status. Monitor (2) Constipation Current Visit: Yes Status: Acute Assessment and plan: Has PRN Colace. Will change to scheduled BID. I ordered Dulcolax tab yesterday, but pt did not receive this. Spoke with bedside nurse Jaqueline re: administration of this after EGD when able to take po. (3) Anxiety Current Visit: No Status: Chronic Assessment and plan: Continue low dose Ativan. Has not utilized x24 hours (4) Counseling regarding advanced care planning and goals of care Current Visit: Yes Status: Acute Assessment and plan: Patient for EGD today. She is hoping to be discharged back to home soon. To date, she denies needs at home. POA/code status established. Palliative will follow at a distance. Please call if needed. (5) Acute blood loss anemia Current Visit: Yes Status: Acute (6) Lung cancer Current Visit: No Status: Chronic Qualifiers: Laterality: right Lung location: upper lobe of lung Qualified Code(s): C34.11 - Malignant neoplasm of upper lobe, right bronchus or lung - Time Spent With Patient Total time spent is greater than 50% in coordination of care (as documented) at patient's floor/unit and/or counseling patient: - Subjective Interval history: Patient awake and alert, awaiting EGD today. Denies further nosebleed. c/o constipation. No pain issues today. - Constitutional Vitals: Abnormal lab results RBC 2.85 M/mcL (3.82-4.97) L 12/16/16 03:20 Hgb 8.0 g/dL (11.5-15.4) L 12/16/16 03:20 Hct 24.7 % (35.3-44.9) L 12/16/16 03:20 RDW 18.9 % (11.5-14.5) H 12/16/16 03:20 Lymphocytes # 0.3 K/mcL (0.6-4.6) L 12/16/16 03:20 Nucleated RBCs/100 WBC 0.4 /100 WBC (0) H 12/14/16 08:00 Polychromasia 1+ (Not Present) A 12/13/16 17:10 Anisocytosis 2+ (Not Present) A 12/13/16 17:10 Microcytosis Present (Not Present) A 12/13/16 17:10 PT 12.8 Seconds (9.4-12.1) H 12/16/16 03:20 VBG pO2 88 mmHg (25-40) H 12/14/16 11:30 BUN 22 mg/dL (7-20) H 12/16/16 03:20 BUN/Creatinine Ratio 34 (6-26) H 12/16/16 03:20 Calcium 8.0 mg/dL (8.6-10.8) L 12/16/16 03:20 Ionized Calcium 0.96 mmol/L (1.15-1.35) L 12/14/16 11:30 Troponin I 0.91 ng/mL (0-0.03) H* 12/15/16 04:12 B-Natriuretic Peptide 583 pg/mL (0-100) H 12/13/16 17:10 Serum Total Protein 5.7 g/dL (6.0-8.3) L 12/13/16 20:40 Albumin 2.8 g/dL (3.5-5.0) L 12/13/16 20:40 Albumin/Globulin Ratio 1.0 (1.1-2.2) L 12/13/16 20:40 Triglycerides 255 mg/dL (< 150) H 12/14/16 03:18 VLDL Cholesterol, Calc 51 mg/dL (< 31) H 12/14/16 03:18 HDL Cholesterol 26 mg/dL (40-59) L 12/14/16 03:18 Cholesterol/HDL Ratio 6.0 (0-4.9) H 12/14/16 03:18 Beta-Hydroxybutyric Acd 0.44 mmol/L (0.02-0.27) H 12/13/16 17:10 Urine Glucose (UA) >=1000 mg/dL (Normal) H 12/13/16 17:23 Stool Occult Blood Positive (Negative) A 12/13/16 16:36 Salicylates < 5.0 mg/dL (15-30) L 12/13/16 20:40 General appearance: Present: no acute distress - Respiratory Respiratory exam: Present: decreased breath sounds, CTAB - Cardiovascular Cardiovascular exam: Present: +S1, +S2 - GI/Abdominal GI/Abdominal exam: Present: normal bowel sounds, soft - Extremities Exam Extremities exam: Present: normal capillary refill, normal inspection - Neurological Exam Neurological exam: Present: alert, oriented X3, strengths equal and symetr throughout - Psychiatric Psychiatric exam: Present: normal affect, normal mood - Skin Skin exam: Present: dry, pallor, warm Palliative Quality Palliative Quality: Screen for Code Status: Yes, Screen for Goals of Care: Yes, Screen for Pain: Yes, If Pain Regimen Started, Initiate Bowel Regimen: Yes, Screen for Nausea/Vomitting: Yes Code Status: 12/14/16 15:14 DNR [Resuscitation Status: Active] [RES] Routine Comment: Resuscitation Status: [id number] - Labs CBC & Chem 7: 12/16/16 03:20 12/16/16 03:20 Labs: Laboratory Results - last 24 hr 12/15/16 12/15/16 12/15/16 11:18 11:20 15:23 WBC RBC Hgb 8.6 L Hct 25.6 L MCV MCH MCHC RDW Plt Count MPV Immature Gran % Seg Neutrophils % Lymphocytes % Monocytes % Eosinophils % Basophils % Neutrophils # Lymphocytes # Monocytes # Eosinophils # Basophils # PT INR Sodium Potassium Chloride Carbon Dioxide BUN Creatinine Est GFR ( Amer) Est GFR (Non-Af Amer) BUN/Creatinine Ratio Glucose POC Glucose 255 H 170 H Calculated Osmolality Calcium 12/15/16 12/16/16 12/16/16 20:30 03:20 03:20 WBC 8.9 RBC 2.85 L Hgb 8.0 L Hct 24.7 L MCV 86.7 MCH 28.1 MCHC 32.4 RDW 18.9 H Plt Count 195 MPV 9.5 Immature Gran % 2.1 Seg Neutrophils % 84.6 Lymphocytes % 2.9 Monocytes % 9.2 Eosinophils % 1.1 Basophils % 0.1 Neutrophils # 7.5 Lymphocytes # 0.3 L Monocytes # 0.8 Eosinophils # 0.1 Basophils # 0.0 PT INR Sodium 139 Potassium 3.6 Chloride 106 Carbon Dioxide 26 BUN 22 H Creatinine 0.65 Est GFR ( Amer) > 60 Est GFR (Non-Af Amer) > 60 BUN/Creatinine Ratio 34 H Glucose 70 POC Glucose 215 H Calculated Osmolality 290 Calcium 8.0 L 12/16/16 12/16/16 03:20 05:10 WBC RBC Hgb Hct MCV MCH MCHC RDW Plt Count MPV Immature Gran % Seg Neutrophils % Lymphocytes % Monocytes % Eosinophils % Basophils % Neutrophils # Lymphocytes # Monocytes # Eosinophils # Basophils # PT 12.8 H INR 1.2 Sodium Potassium Chloride Carbon Dioxide BUN Creatinine Est GFR ( Amer) Est GFR (Non-Af Amer) BUN/Creatinine Ratio Glucose POC Glucose 85 Calculated Osmolality Calcium - ABG Interpretation ABG results: PT/INR, D-dimer PT 12.8 Seconds (9.4-12.1) H 12/16/16 03:20 Consult Discharge Plan - Plan Referrals: Liberty Vides MD [Primary Care Provider] -
--- NOTE | 2016-12-16 11:57 | Anesthesia Evaluation PreOp ---
Date of Encounter: 12/16/16 Time of Encounter: 11:55 - Past History Planned Operation: egd/admit acute anemia/acute hyperglycemia/severe epist Cardiac History: MN (demand ischemia), HTN, Hyperlipidemia, Other (admit Hb at 3. s/o 6 u prbc, 2u ffp, 1u cryo. 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: TIA (positional vertigo), Other (anxiety, depression) Other Medical History: Renal (hari/ckd), Other (met breast ca) Anesthesia History: No Prior Anesthetic Complications, Past Anesthesia (appy, breast, cataract, cholecyst, rhoda,) Alcohol Use: none Drug use: none Medications and Allergies Albuterol Sulfate [Proair HFA] 2 puff IH Q6HR PRN 06/12/15 [History] Amlodipine Besylate [Norvasc] 5 mg PO DAILY 06/12/15 [History] Atorvastatin [Lipitor] 40 mg PO HS 06/12/15 [History] GlyBURIDE [Diabeta] 5 mg PO BID 06/12/15 [History] LevETIRAcetam [Keppra] 500 mg PO BID 06/12/15 [History] Metformin HCl [Glucophage] 500 mg PO DAILY 06/12/15 [History] Omeprazole [PriLOSEC] 20 mg PO DAILY 06/12/15 [History] Ondansetron HCl [Zofran] 8 mg PO Q8H PRN 06/12/15 [History] Sertraline HCl [Zoloft] 150 mg PO DAILY 06/12/15 [History] Triamterene/Hydrochlorothiazid [Dyazide 37.5-25 Capsule] 1 each PO DAILY [History] Warfarin [Coumadin] 5 mg PO 1800 06/12/15 [History] Denosumab [Xgeva] 120 mg SQ AD #06/22/15 [Rx] Cyanocobalamin (Vitamin B-12) [Vitamin B-12] 1,000 mcg PO DAILY #90 tablet 02/08 [Rx] Meclizine [Antivert] 25 mg PO TID PRN #30 tablet 02/29/16 [Rx] Budesonide/Formoterol 160/4.5 [Symbicort 160/4.5] 1 puff IH BIDR #3 hfa.aer.ad 05/19/16 [Rx] LORazepam [Ativan] 1 mg PO Q6H PRN #60 tablet 05/19/16 [Rx] Cholecalciferol (D-3) [Vitamin D] 1,000 unit PO DAILY #90 tablet 06/22/16 [Rx] GuaiFENesin/Dextromethorphan [Robitussin/DM] 5 ml PO Q4HR PRN #250 ml 07/29/16 [ Rx] Calcium Carbonate/Vitamin D3 [Calcium 600-Vit D3 800 Tablet] 2 each PO DAILY # 180 tablet 09/29/16 [Rx] Benzonatate [Tessalon] 100 mg PO TID #90 capsule 11/14/16 [Rx] Folic Acid 1 mg PO DAILY #90 tablet 11/14/16 [Rx] OxyCODONE/APAP 10/325 [Percocet 10/325 MG] 1 - 2 each PO Q4HR PRN #120 tablet [Rx] Anastrozole [Arimidex] 1 mg PO DAILY 12/13/16 [History] Dexamethasone [Decadron] 8 mg PO BID 12/13/16 [History] Ferrous Sulfate 325 mg PO DAILY 12/13/16 [History] Allergies Cephalosporins Allergy (Verified 06/21/16 07:28) See Comments codeine Allergy (Verified 06/21/16 07:28) See Comments lisinopril Allergy (Verified 06/21/16 07:28) See Comments metoclopramide [From Reglan] Allergy (Verified 06/21/16 07:28) Confusion Penicillins Allergy (Verified 06/21/16 07:28) Hives Sulfa (Sulfonamide Antibiotics) Allergy (Verified 06/21/16 07:28) See Comments - Meds/Allergy Pre-op Review Medications Reviewed: Yes Allergies Reviewed: Yes Beta Blockers on Current Med List: No Anesthesia Results - Labs 12/16/16 03:20 12/16/16 03:20 - Imaging EKG: report reviewed (st, subend ischemia on admit) Anesthesia Exam Vital Signs/O2 Sat/Glucose, Most Current Temp Pulse Resp BP Pulse Ox 12/16/16 11:14 97.9 F 90 22 147/69 97 Height: 1.63 Weight: 58 NPO (# of Hours): >8 - HEENT Pupil (Motor): Pupils equal, EOMI Mallampati: I Teeth: Poor dentition Oral Opening: Greater than 3 - 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
[2016-12-16] MEDS ORDERED: 0.9 % Sodium Chloride 1,000 ML IVC SCH (12:00)
[2016-12-16] MEDS ORDERED: Tetracaine/Benzocaine/Butamben 200MG/SPRAY (100SPY/BOT) MM ONE (13:20)
--- NOTE | 2016-12-16 18:06 | Internal Med Progress Note ---
Date of Encounter: 12/16/16 Time of Encounter: 16:15 - Assessment and plan (1) Elevated troponin Current Visit: Yes Status: Acute Assessment and plan: this is likely demand ischemia due to acute anemia. Troponins currently trending down after reaching a maximum of 2.4. Cardiology signed off, no further recommendations or testing at this time. (2) Acute blood loss anemia Current Visit: Yes Status: Acute Assessment and plan: likely related to epistaxis but cannot rule out GI bleed. Held anticoagulation with Coumadin. Received a total of 6 units PRBC, 2 units FFPs and 1 unit cryoprecipitate during this admission. Underwent EGD today, which showed no e/o - gastritis or PUD or bleeding. Continue to monitor Hb as she is noted to have a slight drop in Hb today; noted to have another small episode of epistaxis- change to humidified O2, continue nasal saline sprays; send stool for occult blood testing; (3) Coumadin toxicity Current Visit: Yes Status: Acute Assessment and plan: Coumadin is currently on hold. Restart after acute anemia resolves. INR currently trending down, noted to be 1.2 today. Qualifiers: Encounter type: initial encounter Injury intent: accidental or unintentional Qualified Code(s): T45.511A - Poisoning by anticoagulants, accidental (unintentional), initial encounter (4) DKA (diabetic ketoacidoses) Current Visit: Yes Status: Acute Assessment and plan: Hemoglobin A1c noted to be 5.5%. DKA resolved. Currently tolerating oral diet. Blood sugars noted to be better controlled, continue basal insulin, continue sliding scale. Patient is noted to have no glucometer at home, she will be provided with 1 at the time of discharge. Continue diabetic diet. Qualifiers: Diabetes mellitus type: type 2 Diabetes mellitus complication detail: without coma Qualified Code(s): E13.10 - Other specified diabetes mellitus with ketoacidosis without coma (5) Antiphospholipid antibody syndrome Current Visit: Yes Status: Chronic Assessment and plan: noted to be on long-term anticoagulation with Coumadin at home. Coumadin is currently on hold and will need to be restarted after Acute anemia resolves. (6) Anxiety Current Visit: Yes Status: Chronic (7) COPD (chronic obstructive pulmonary disease) Current Visit: Yes Status: Chronic Qualifiers: COPD type: unspecified COPD Qualified Code(s): J44.9 - Chronic obstructive pulmonary disease, unspecified (8) Chronic pain Current Visit: Yes Status: Chronic Qualifiers: Chronic pain type: due to neoplasm Qualified Code(s): G89.3 - Neoplasm related pain (acute) (chronic) (9) Lung cancer Current Visit: Yes Status: Chronic Qualifiers: Laterality: right Lung location: upper lobe of lung Qualified Code(s): C34.11 - Malignant neoplasm of upper lobe, right bronchus or lung (10) Metastatic breast cancer Current Visit: Yes Status: Chronic (11) Osteoporosis Current Visit: Yes Status: Chronic (12) Epistaxis Current Visit: Yes Status: Acute - Subjective Interval history: Reports no new complaints; no nausea, vomiting, abdominal pain; underwent EGD today; had one episode of fresh red bleeding epistaxis after the procedure, currently stopped; noted to be on O2 drying out her nasal mucosa; - Constitutional Vitals: Temp Pulse Resp BP Pulse Ox 98.2 F 94 18 132/66 99 12/16/16 15:47 12/16/16 15:47 12/16/16 16:18 12/16/16 15:47 12/16/16 16:18 General appearance: Present: A&O X 3, answers questions appropriately - Respiratory Respiratory exam: Present: CTAB. Absent: accessory muscle use, rales, rhonchi, wheezes - Cardiovascular Cardiovascular exam: Present: RRR, +S1, +S2. Absent: diastolic murmur, gallop, rubs, systolic murmur - GI/Abdominal GI/Abdominal exam: Present: normal bowel sounds, soft, no peritoneal signs. Absent: distended, tenderness - Extremities Exam Extremities exam: Present: full ROM, warm, radial pulses palpable and symetrical. Absent: calf tenderness, cyanotic, pedal edema - Neurological Exam Neurological exam: Present: CN II-XII intact, oriented X3, no focal deficits. Absent: pronater drift, facial droop, speech deficit Internal Medicine: Result - Labs CBC & Chem 7: 12/16/16 03:20 12/16/16 03:20 Labs: Short CBC 12/16/16 Range/Units 03:20 WBC 8.9 (4.3-11.1) K/mcL Hgb 8.0 L (11.5-15.4) g/dL Hct 24.7 L (35.3-44.9) % Plt Count 195 (140-400) K/mcL Neutrophils # 7.5 (1.6-8.9) K/mcL BMP 12/16/16 03:20 Sodium 139 Potassium 3.6 Chloride 106 Carbon Dioxide 26 BUN 22 H Creatinine 0.65 Glucose 70 Calcium 8.0 L - ABG Interpretation ABG results: PT/INR, D-dimer PT 12.8 Seconds (9.4-12.1) H 12/16/16 03:20 - VTE Documentation of Mechanical Device: Intermittent pneumatic compression device Consult Discharge Plan - Plan Referrals: Liberty Vides MD [Primary Care Provider] -
[2016-12-16] MEDS: Sennosides/Docusate Sodium TABLET PO SCH (21:30)
[2016-12-17 03:41] LABS: Basophils % 0.2 %; Eosinophils # 0.2 K/mcL (0.0-0.6); Eosinophils % 2.4 %; Hematocrit 25.4 % (35.3-44.9); Hemoglobin 8.2 g/dL (11.5-15.4); Immature Granulocytes % 1.7 % (0-4); Lymphocytes # 0.5 K/mcL (0.6-4.6); Lymphocytes % 6.8 %; Mean Corpuscular HGB Conc 32.3 g/dL (31.6-35.5); Mean Corpuscular Hemoglobin 28.7 pg (28.0-33.3); Mean Corpuscular Volume 88.8 fL (83.0-100.0); Mean Platelet Volume 9.8 fL (9.4-12.4); Monocytes # 0.5 K/mcL (0.0-1.3); Monocytes % 8.2 %; Neutrophils # 5.4 K/mcL (1.6-8.9); Platelet Count 249 K/mcL (140-400); Red Blood Count 2.86 M/mcL (3.82-4.97); Red Cell Distribution Width 19.2 % (11.5-14.5); Segmented Neutrophils % 80.7 %
[2016-12-17 03:47] LABS: INR 1.1; Prothrombin Time 11.4 Seconds (9.4-12.1)
[2016-12-17] MEDS: Ipratropium/Albuterol Neb 3 ML IH SCH ×2 (04:58→11:39)
[2016-12-17] MEDS: Insulin LISPRO 300 UNITS/3 ML VIAL SQ SCH ×2 (07:57→11:28)
[2016-12-17] MEDS: levETIRAcetam 250 MG TABLET PO SCH (07:57)
[2016-12-17] MEDS: Folic Acid 1 MG TABLET PO SCH (07:57)
[2016-12-17] MEDS: Nystatin SUSP 5 ML UD.LIQ PO SCH ×2 (07:58→11:28)
[2016-12-17] MEDS: Saline Nasal Spray 44 ML BOTTLE NS SCH ×2 (07:59→11:28)
[2016-12-17] MEDS: Cyanocobalamin (B-12) 1,000 MCG TABLET PO SCH (08:00)
[2016-12-17] MEDS: Benzonatate 100 MG CAPSULE PO SCH ×2 (08:00→14:08)
[2016-12-17] MEDS: Sennosides/Docusate Sodium TABLET PO SCH (08:00)
[2016-12-17] MEDS: Insulin DETEMIR 100 UNIT/ML X5UNITS SQ SCH (08:00)
[2016-12-17 11:05] VITALS: BP 132/93
--- NOTE | 2016-12-17 11:56 | Discharge Summary ---
Date of Encounter: 12/17/16 Time of Encounter: 11:45 - Discharge Diagnosis (1) Elevated troponin Priority: Primary Status: Acute (2) Acute blood loss anemia Priority: Primary Status: Acute (3) Coumadin toxicity Priority: Primary Status: Resolved Qualifiers: Encounter type: initial encounter Injury intent: accidental or unintentional Qualified Code(s): T45.511A - Poisoning by anticoagulants, accidental (unintentional), initial encounter (4) DKA (diabetic ketoacidoses) Priority: Primary Status: Resolved Qualifiers: Diabetes mellitus type: type 2 Diabetes mellitus complication detail: without coma Qualified Code(s): E13.10 - Other specified diabetes mellitus with ketoacidosis without coma (5) Antiphospholipid antibody syndrome Priority: Secondary Status: Chronic (6) Anxiety Priority: Secondary Status: Chronic (7) COPD (chronic obstructive pulmonary disease) Priority: Secondary Status: Chronic Qualifiers: COPD type: unspecified COPD Qualified Code(s): J44.9 - Chronic obstructive pulmonary disease, unspecified (8) Chronic pain Priority: Secondary Status: Chronic Qualifiers: Chronic pain type: due to neoplasm Qualified Code(s): G89.3 - Neoplasm related pain (acute) (chronic) (9) Lung cancer Priority: Secondary Status: Chronic Qualifiers: Laterality: right Lung location: upper lobe of lung Qualified Code(s): C34.11 - Malignant neoplasm of upper lobe, right bronchus or lung (10) Metastatic breast cancer Priority: Secondary Status: Chronic (11) Osteoporosis Priority: Secondary Status: Chronic (12) Epistaxis Priority: Primary Status: Resolved - Discharge Medications Prescriptions: Blood-Glucose Meter [Blood Glucose Monitor] 1 each [facility] 30 Days Lancets/Blood Glucose Strips [Fora [id number] [facility]-Lnct] 1 each ACHS 30 Days Saline Nasal Cascilla [Hardin Nasal Cascilla] 2 spray NS QID PRN 30 Days PRN Reason: Dry Nasal Passages Home Medications: Albuterol Sulfate [Albuterol Inhaler] 2 puff IH Q6HR PRN 06/12/15 [History] Amlodipine Besylate [Norvasc] 5 mg PO DAILY 06/12/15 [History] Atorvastatin [Lipitor] 40 mg PO HS 06/12/15 [History] GlyBURIDE [Diabeta] 5 mg PO BID 06/12/15 [History] LevETIRAcetam [Keppra] 500 mg PO BID 06/12/15 [History] Metformin HCl [Glucophage] 500 mg PO DAILY 06/12/15 [History] Ondansetron HCl [Zofran] 8 mg PO Q8H PRN 06/12/15 [History] Sertraline HCl [Zoloft] 150 mg PO DAILY 06/12/15 [History] Triamterene/Hydrochlorothiazid [Dyazide 37.5-25 Capsule] 1 each PO DAILY [History] Warfarin [Coumadin] 5 mg PO 1800 06/12/15 [History] Denosumab [Xgeva] 120 mg SQ AD #6 / 06/22/15 [Rx] Cyanocobalamin (Vitamin B-12) [Vitamin B12] 1,000 mcg PO DAILY #90 tablet [Rx] Meclizine [Antivert] 25 mg PO TID PRN #30 tablet 02/29/16 [Rx] Budesonide/Formoterol 160/4.5 [Symbicort 160/4.5] 1 puff IH BIDR #3 hfa.aer.ad 05/19/16 [Rx] LORazepam [Ativan] 1 mg PO Q6H PRN #60 tablet 05/19/16 [Rx] Cholecalciferol (D-3) [Vitamin D] 1,000 unit PO DAILY #90 tablet 06/22/16 [Rx] GuaiFENesin/Dextromethorphan [Robitussin/Dm] 5 ml PO Q4HR PRN #250 ml 07/29/16 [ Rx] Calcium Carbonate/Vitamin D3 [Calcium 600-Vit D3 800 Tablet] 2 each PO DAILY # 180 tablet 09/29/16 [Rx] Benzonatate [Tessalon] 100 mg PO TID #90 capsule 11/14/16 [Rx] Folic Acid 1 mg PO DAILY #90 tablet 11/14/16 [Rx] OxyCODONE/APAP 10/325 [Percocet 10/325 MG] 1 - 2 each PO Q4HR PRN #120 tablet [Rx] Anastrozole [Arimidex] 1 mg PO DAILY 12/13/16 [History] Dexamethasone [Decadron] 8 mg PO BID 12/13/16 [History] Ferrous Sulfate 325 mg PO DAILY 12/13/16 [History] Blood-Glucose Meter [Blood Glucose Monitor] 1 each [facility] 30 Days 12/17/16 [Rx] Lancets/Blood Glucose Strips [Fora [id number] Strp-Lnct] 1 each [facility] 30 Days 12/17/16 [Rx] Omeprazole [PriLOSEC] 40 mg PO DAILY #30 12/17/16 [Rx] Saline Nasal Cascilla [Hardin Nasal Cascilla] 2 spray NS QID PRN 30 Days 12/17/16 [Rx] Allergies/Adverse Reactions: Allergies Cephalosporins Allergy (Verified 06/21/16 07:28) See Comments codeine Allergy (Verified 06/21/16 07:28) See Comments lisinopril Allergy (Verified 06/21/16 07:28) See Comments metoclopramide [From Reglan] Allergy (Verified 06/21/16 07:28) Confusion Penicillins Allergy (Verified 06/21/16 07:28) Hives Sulfa (Sulfonamide Antibiotics) Allergy (Verified 06/21/16 07:28) See Comments Date of admission: 12/13/16 18:54 Primary care physician: Liberty Vides MD Consults: 12/13/16 20:05 Consult to Nurse Navigator [CONS] Routine Comment: 12/13/16 20:51 Consult to Nutrition [CONS] Routine Comment: Consulting Provider: NUTRITION Reason for Dietary Consult: Supplemental Nutrition 12/14/16 09:00 Consult to Cardiology [CONS] Routine Comment: Consulting Provider: Cardiology Nadia Reason for Consult: Type II and ischemia with troponin elevation greater than 2 in patient with severe acute blood loss anemia and associated hypotension. Patient has a history of CAD/PTCAstent + antiphospholipid syndrome. Please evaluate and advise. Time Notified: 05:02 Call Completed: No Consult to ENT [CONS] Routine Consulting Provider: [facility] [place] Reason for Consult: Severe acute blood loss anemia secondary to epistaxis. His evaluate and advise. Time Notified: 05:04 Call Completed: No Consult to Oncology [CONS] Routine Consulting Provider: [facility] [place] Reason for Consult: Patient known to . Admitted with severe acute blood loss anemia associated hypotension demand ischemia and DEO. Please evaluate and advise. Time Notified: 05:14 Call Completed: No Consult to Physician [CONS] Routine Consulting Provider: Guillermo Santos Reason for Consult: Patient known to specialist. Admitted with severe acute blood loss anemia days following severe epistaxis while on therapeutic warfarin therapy. Uncertain raised of possible continuing GI bleed. Hemoglobin at presentation less than 4 with hypotension, DEO and demand ischemia. Please evaluate and advise. Time Notified: 05:08 Call Completed: No 12/14/16 11:32 Consult to Palliative Care [CONS] Routine Comment: Consulting Provider: Palliative Care Nadia 12/14/16 17:32 Consult to Foundation Drill Operator Helper [CONS] Routine Comment: uncontrolled DM type II, needs glucometer/educ. 12/16/16 08:31 Consult to Wheel Tuner [CONS] Routine Reason for SW Consult: Rusty already evaluated for discharge planning Discharging clinician: Shelly Aguila Anticipated date of discharge: 12/17/16 - Patient Status Disposition: Home Health Service Condition: Good Functional capacity at discharge: independent ambulation Overall status at discharge: patient is back to baseline - Discharge Instructions Follow Up With: Liberty Vides MD [Primary Care Provider] - (Patient refused PCP follow up appt. [facility] patient states she has not seen her pcp for awhile always makes an appointment with Sameer.) Additional Instructions: F/up with Oncology as scheduled F/up with Anticoagulation clinic in 3-5 days - Diet and Activity Activity: resume usual activities as tolerated Diet: diabetic diet, low fat, low cholesterol, low salt diet Hospital course: Ms. Mars is a 71 year old female with the above medical problems admitted due to acute on chronic anemia and hyperglycemia. Patient was noted to be in diabetic ketoacidosis and admitted to ICU and was started on IV insulin infusion per protocol. Her blood sugars gradually improved, her anion gap closed and she was able to tolerate oral diet. She was noted to have supratherapeutic INR of 4.9 due to chronic long-term anticoagulation with Coumadin for antiphospholipid syndrome. Given her acute anemia of hemoglobin less than 4, she was given vitamin K, fresh frozen plasma and cryoprecipitate with improvement in her INR. She had a significant episode of epistaxis at home that lasted for 4-5 hours according to the patient and this is thought to be the likely reason for her acute anemia. She received a total of 6 units PRBC transfusion during this admission. Surgery was consulted for possible EGD and colonoscopy. Patient underwent a recent colonoscopy which showed no significant bleeding but she is noted to have metastatic lesions from her lung and breast cancer. EGD was done during this admission, which showed no evidence of gastritis/peptic ulcer disease/active bleeding. Her hemoglobin gradually stabilized around 8-8.5. ENT was consulted for epistaxis and patient also had 2 more episodes while in the hospital, which were minor and self-limited. She had no active bleeding during ENT evaluation and was recommended saline nasal spray along with humidified oxygen as needed and no further intervention. She was noted to have elevated troponins, initially trended up to a maximum of 2.4 and currently normalizing. Cardiology was consulted and her troponins are likely a result of demand ischemia and severe anemia. Echocardiogram was done which showed preserved ejection fraction and no significant abnormality. Palliative care team was consulted for goals of care and patient's CODE STATUS was changed to DNR/DNI. She however, wishes to resume her chemotherapy as an outpatient for her lung cancer. Her Coumadin needs to be restarted at this time, she has been explained about this and will follow up with anticoagulation clinic for INR monitoring. She is also being discharged with glucometer and supplies and encouraged to check her blood sugars before meals and at bedtime and to maintain a blood sugar log and to take that to her doctor appointments so that her diabetes management can be adjusted. Her hemoglobin A1c is noted to be 5.5% and she is on metformin and sulfonylurea at home and I will not be starting her on insulin at this time. She was seen by inclusion special educator and received diabetic education. - Time Spent with Patient Total time spent providing and/or coordinating discharge services: Greater than 30 minutes (45 min) - Constitutional Vitals: Temp Pulse Resp BP Pulse Ox 98.4 F 78 18 132/93 99 12/17/16 10:50 12/17/16 10:50 12/17/16 11:39 12/17/16 10:50 12/17/16 11:39 General appearance: Present: A&O X 3, answers questions appropriately - Respiratory Respiratory exam: Present: CTAB. Absent: accessory muscle use, rales, rhonchi, wheezes - Cardiovascular Cardiovascular exam: Present: RRR, +S1, +S2. Absent: diastolic murmur, gallop, rubs, systolic murmur - GI/Abdominal GI/Abdominal exam: Present: normal bowel sounds, soft, no peritoneal signs. Absent: distended, tenderness - VTE Documentation of Mechanical Device: Intermittent pneumatic compression device
--- NOTE | 2016-12-17 12:05 | Physician Discharge Referral ---
Home Health/Hosp Referral Info Transfer to: Home Health Attending Provider: Shelly Aguila Provider in Charge Post Discharge: PCP - Diagnosis (1) Elevated troponin Priority: Primary Status: Acute (2) Acute blood loss anemia Priority: Primary Status: Acute (3) Coumadin toxicity Priority: Primary Status: Resolved (4) DKA (diabetic ketoacidoses) Priority: Primary Status: Resolved (5) Antiphospholipid antibody syndrome Priority: Secondary Status: Chronic (6) Anxiety Priority: Secondary Status: Chronic (7) COPD (chronic obstructive pulmonary disease) Priority: Secondary Status: Chronic (8) Chronic pain Priority: Secondary Status: Chronic (9) Lung cancer Priority: Secondary Status: Chronic (10) Metastatic breast cancer Priority: Secondary Status: Chronic (11) Osteoporosis Priority: Secondary Status: Chronic (12) Epistaxis Priority: Secondary Status: Resolved - Respiratory Orders Smoking Cessation: Smoking cessation has been advised. For more information, call the [place] [employer] Quit Line at 4-389-XIXY-NOW. - Diet/Nutrition Diet/Nutrition Orders: No Concentrated Sweets (diabetic diet) - Activity Activity Orders: Ambulate - Services Needed Following services are medically necessary services: Nursing (Patient needs INR monitoring, is on Coumadin; blood sugar monitoring, new Rx for glucometer), Physical Therapy, Occupational Therapy - Transfer Medications Prescriptions: Blood-Glucose Meter [Blood Glucose Monitor] 1 each [facility] 30 Days Lancets/Blood Glucose Strips [Fora [id number] [facility]] 1 each ACHS 30 Days Saline Nasal Lynn [Candler Nasal Lynn] 2 spray NS QID PRN 30 Days PRN Reason: Dry Nasal Passages Home Medications: Albuterol Sulfate [Albuterol Inhaler] 2 puff IH Q6HR PRN 06/12/15 [History] Amlodipine Besylate [Norvasc] 5 mg PO DAILY 06/12/15 [History] Atorvastatin [Lipitor] 40 mg PO HS 06/12/15 [History] GlyBURIDE [Diabeta] 5 mg PO BID 06/12/15 [History] LevETIRAcetam [Keppra] 500 mg PO BID 06/12/15 [History] Metformin HCl [Glucophage] 500 mg PO DAILY 06/12/15 [History] Ondansetron HCl [Zofran] 8 mg PO Q8H PRN 07/31/15 [History] Sertraline HCl [Zoloft] 150 mg PO DAILY 06/12/15 [History] Triamterene/Hydrochlorothiazid [Dyazide 37.5-25 Capsule] 1 each PO DAILY [History] Warfarin [Coumadin] 5 mg PO 1800 06/12/15 [History] Denosumab [Xgeva] 120 mg SQ AD #6 / 06/22/15 [Rx] Cyanocobalamin (Vitamin B-12) [Vitamin B12] 1,000 mcg PO DAILY #90 tablet [Rx] Meclizine [Antivert] 25 mg PO TID PRN #30 tablet 02/29/16 [Rx] Budesonide/Formoterol 160/4.5 [Symbicort 160/4.5] 1 puff IH BIDR #3 hfa.aer.ad 05/19/16 [Rx] LORazepam [Ativan] 1 mg PO Q6H PRN #60 tablet 05/19/16 [Rx] Cholecalciferol (D-3) [Vitamin D] 1,000 unit PO DAILY #90 tablet 06/22/16 [Rx] GuaiFENesin/Dextromethorphan [Robitussin/Dm] 5 ml PO Q4HR PRN #250 ml 07/29/16 [ Rx] Calcium Carbonate/Vitamin D3 [Calcium 600-Vit D3 800 Tablet] 2 each PO DAILY # 180 tablet 09/29/16 [Rx] Benzonatate [Tessalon] 100 mg PO TID #90 capsule 11/14/16 [Rx] Folic Acid 1 mg PO DAILY #90 tablet 11/14/16 [Rx] OxyCODONE/APAP 10/325 [Percocet 10/325 MG] 1 - 2 each PO Q4HR PRN #120 tablet [Rx] Anastrozole [Arimidex] 1 mg PO DAILY 12/13/16 [History] Dexamethasone [Decadron] 8 mg PO BID 12/13/16 [History] Ferrous Sulfate 325 mg PO DAILY 12/13/16 [History] Blood-Glucose Meter [Blood Glucose Monitor] 1 each ACHS 30 Days 12/17/16 [Rx] Lancets/Blood Glucose Strips [Fora [id number] Strp-Lnmi] 1 each ACHS 30 Days 12/17/16 [Rx] Omeprazole [PriLOSEC] 40 mg PO DAILY #30 12/17/16 [Rx] Saline Nasal Lynn [Candler Nasal Lynn] 2 spray NS QID PRN 30 Days 12/17/16 [Rx] Allergies/Adverse Reactions: Allergies Cephalosporins Allergy (Verified 06/21/16 07:28) See Comments codeine Allergy (Verified 06/21/16 07:28) See Comments lisinopril Allergy (Verified 06/21/16 07:28) See Comments metoclopramide [From Reglan] Allergy (Verified 06/21/16 07:28) Confusion Penicillins Allergy (Verified 06/21/16 07:28) Hives Sulfa (Sulfonamide Antibiotics) Allergy (Verified 06/21/16 07:28) See Comments Certification: Further, I certify that my clinical findings support that this patient is homebound (i.e. absences from home require considerable and taxing effort and are for medical reasons or denominational services or infrequently or short duration when for other reasons) because: Homebound Reason: Patient requires assistance of a person or device to safely leave home Attestation: My signature below is to certify that this patient is under my care and that I, or nurse practitioner, or a physician's administrative personal assistant working with me, has a face-to -face encounter with this patient.
[2016-12-17] MEDS ORDERED: *HR* Propofol 200 MG/20 ML VIAL IVP ONE (14:38)
[2016-12-17] MEDS ORDERED: Lidocaine -MPF 2% 5 ML VIAL INFILT ONE (14:38)
[2016-12-17] MEDS ORDERED: *HR* Propofol 500 MG/50 ML BOTTLE IVC ONE (14:38)
== END 2016-12-17 14:39 | disposition home health service (06) | DRG 150 ==
LOC: EMEROO 16:20 → SUATTDRO 18:54 → ICNU 18:54 → 3ANU 12-15 18:34
PROVIDERS: ADMIT Internal Medicine; ATTEND Internal Medicine

== ENCOUNTER 2017-05-02 21:50 | Inpatient (IN) ==
--- NOTE | 2017-05-02 22:18 | Emergency Department Note ---
Disposition Clinical Impression: Symptomatic anemia Disposition: Admitted As Inpatient Condition: Fair Referrals: NO,PCP [Primary Care Provider] - Forms: ED Satisfaction Letter Time of Disposition: 23:35 Weakness HPI - General Chief complaint: ED Weakness Stated complaint: "think I need a blood transfusion", CA pt Time Seen by Provider: 05/02/17 22:02 Source: patient Limitations: no limitations Nursing Notes Reviewed: Yes Vital Signs Reviewed: Yes - History of Present Illness HPI Narrative: Nontoxic-appearing 71-year-old female presents to the emergency department for evaluation of generalized weakness. The patient states for the past 3 days, she is experienced increasing weakness as well as shortness of breath. She states that the last time this happened was this past December. She states that at that time, she required a transfusion of 6 units of packed red blood cells due to a hemoglobin level of 3. She states that the last time she saw her oncologist, Dr. Lyn, at the beginning of this month, he mentioned that she may require another transfusion as he noticed a slight downward trend of her hemoglobin. She denies any fever, chills, nausea, vomiting, abdominal pain, or diarrhea. She denies any hemoptysis, hematemesis, or bloody stools. She does complain of pain in her right hip, however states that her lung cancer metastasized to her right hip and that her oncologist is aware of this., She does complain of a cough that is productive of yellowish to greenish tinged sputum, however states "I always have a cough and that is the normal characteristics of my sputum". Pt Subjective Complaint: generalized weakness/fatigue Onset (ago): day(s) (3) Duration: gradually worsening Location: RLE Pain Scale: 7 If pain, quality: aching Improves with: none Worsens with: movement Associated symptoms: Reports: shortness of breath. Denies: chest pain, dark stools, diaphoresis, dysuria, fever/chills, headaches, loss of appetite, nausea/ vomiting, myalgias - Related Data Home Medications Medication Instructions Recorded Confirmed Albuterol Sulfate [Albuterol 2 puff IH Q6HR PRN 06/12/15 04/18/17 Inhaler] Atorvastatin [Lipitor] 40 mg PO HS 06/12/15 04/18/17 LevETIRAcetam [Keppra] 500 mg PO BID 06/12/15 04/18/17 Ondansetron HCl [Zofran] 8 mg PO Q8H PRN 06/12/15 04/18/17 Warfarin [Coumadin] 5 mg PO 1800 06/12/15 04/18/17 Anastrozole [Arimidex] 1 mg PO DAILY 12/13/16 04/18/17 Potassium Chloride [Klor-Con] 20 meq PO DAILY 02/21/17 04/18/17 Previous Rx's Medication Instructions Recorded Denosumab [Xgeva] 120 mg SQ AD #6 06/22/15 Meclizine [Antivert] 25 mg PO TID PRN #30 tablet 02/29/16 Cholecalciferol (D-3) [Vitamin D] 1,000 unit PO DAILY #90 tablet 06/22/16 Calcium Carbonate/Vitamin D3 2 each PO DAILY #180 tablet 09/29/16 [Calcium 600-Vit D3 800 Tablet] Benzonatate [Tessalon] 100 mg PO TID #90 capsule 11/14/16 Folic Acid 1 mg PO DAILY #90 tablet 11/14/16 Blood-Glucose Meter [Blood Glucose 1 each [facility] 30 Days 12/17/16 Monitor] Saline Nasal Dorothy [[place] Nasal 2 spray NS QID PRN 30 Days 12/17/16 Dorothy] Budesonide/Formoterol 160/4.5 1 puff IH BIDR #3 hfa.aer.ad 01/17/17 [Symbicort 160/4.5] Ferrous Sulfate 325 mg PO DAILY #90 tablet 01/17/17 Sertraline [Zoloft] 150 mg PO DAILY #45 tablet 03/01/17 Triamterene/Hydrochlorothiazid 1 each PO DAILY #30 capsule 03/01/17 [Dyazide 37.5-25 Capsule] Omeprazole [PriLOSEC] 40 mg PO DAILY #30 capsule. 03/09/17 Magic Mouthwash [Magic Mouthwash 10 ml PO QID PRN #240 ml 03/21/17 BLM] Lancets/Blood Glucose Strips [Fora 1 each [facility] 30 Days 04/12/17 [id number] Strp-Lnct] metFORMIN [Glucophage] 2 tab PO DAILY #30 tablet 04/12/17 Dexamethasone [Decadron] 8 mg PO BID #12 tab 04/14/17 LORazepam [Ativan] 1 mg PO Q6H PRN #60 tablet 04/18/17 OxyCODONE/APAP 10/325 [Percocet 1 each PO Q6HR PRN #90 tablet 04/18/17 10/325 MG] Allergies Allergy/AdvReac Type Severity Reaction Status Date / Time Cephalosporins Allergy See Verified 12/20/16 09:00 Comments codeine Allergy See Verified 12/20/16 09:00 Comments lisinopril Allergy See Verified 12/20/16 09:00 Comments metoclopramide [From Reglan] Allergy Confusion Verified 12/20/16 09:00 Penicillins Allergy Hives Verified 12/20/16 09:00 Sulfa (Sulfonamide Allergy See Verified 12/20/16 09:00 Antibiotics) Comments All systems ED: reviewed and negative except as stated. Constitutional: Reports: as per HPI, weakness. Denies: fever, chills, weight change Eyes: Denies: eye pain, eye discharge, vision change ENT ED: Denies: ear pain, throat pain, dental pain, hearing loss, epistaxis, congestion, dysphagia Cardiovascular: Denies: chest pain, palpitations, dyspnea on exertion, edema, syncope Respiratory: Reports: as per HPI, cough, dyspnea. Denies: wheezes, hemoptysis, stridor Gastrointestinal: Denies: abdominal pain, nausea, vomiting, diarrhea, constipation, hematemesis, melena, hematochezia Genitourinary: Denies: dysuria, frequency, hematuria, discharge Musculoskeletal: Denies: back pain, neck pain, arthralgia, myalgia Integumentary: Denies: rash, abrasion, lesions Neurological: Denies: headache, weakness, numbness, paresthesias, confusion, abnormal gait, vertigo Psychiatric: Denies: anxiety, depression, suicidal thoughts, homicidal thoughts , auditory hallucinations, visual hallucinations Endocrine: Denies: fatigue Hematological/Lymphatic: Denies: easy bleeding, easy bruising Allergic/Immunologic: Denies: facial swelling, urticaria Past Medical History - Past Medical History Attestation: Yes The following information was validated with the patient. Source: patient, nursing notes reviewed Medical history: Reports: arthritis, cancer, CVA, DVT, diabetes, GERD, GI bleed , hyperlipidemia, hypertension, malignancy, osteoporosis, TIA, other Surgical history: Reports: appendectomy, breast surgery, cancer surgery, cataract, cholecystectomy, hysterectomy, orthopedic, other, YANET/BSO, other ( Surgery 2 at ages 1 and 10. Total abdominal bilateral salpingo-oophorectomy and hysterectomy 1977. Appendectomy. Laparoscopic cholecystectomy 1999. Cardiac catheterization 1998. Pre-needle localization, excisional biopsy left breast 1996-benign. Shoulder replacement surgeries 2009 2010. PML/excision carcinoma right breast with pathology analysis margins (partial mastectomy) and right axillary node biopsy 2014. 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 Absent: nystagmus - ENT ENT exam: mucous membranes moist - Neck Neck exam: Present: normal inspection, full ROM, trachea midline - Chest Chest inspection: Present: normal inspection, symmetric chest wall rise - Respiratory Respiratory exam: Present: normal lung sounds bilaterally. Absent: respiratory distress, wheezes, stridor, accessory muscle use, prolonged expiratory phase - Cardiovascular Cardiovascular exam: Present: regular rate, normal rhythm, normal heart sounds - Abdominal Exam Abdominal exam: Present: soft, Non-Tender, normal bowel sounds. Absent: tenderness, distention, guarding, rebound, rigidity - Extremities Exam Extremities exam: Present: normal inspection, full ROM. Absent: tenderness, pedal edema - Neurological Exam Neurological exam: Present: alert, oriented X3 - Psychiatric Psychiatric exam: Present: normal affect, normal mood - Skin Skin exam: Present: warm, dry, intact, normal color Course Course Narrative: I have discussed this patient's case with Dr. Fuentes. Dr. Fuentes has had a [id number] evaluation with the patient and recommends transfusing 1 unit of packed red blood cells and admission to the hospitalist for observation. [id number]: I spoke with Dr. Carpenter of the hospitalist service who has accepted the patient for admission. Vital Signs Temperature 97.8 F 05/02/17 21:51 Pulse Rate 90 05/02/17 21:51 Respiratory Rate 18 05/02/17 21:51 Blood Pressure 193/75 05/02/17 21:51 O2 Sat by Pulse Oximetry 97 05/02/17 21:51 Temperature 97.8 F 05/02/17 21:51 Pulse Rate 83 05/02/17 23:01 Respiratory Rate 16 05/02/17 23:01 Blood Pressure 152/60 05/02/17 23:01 O2 Sat by Pulse Oximetry 98 05/02/17 23:01 Oxygen Delivery Oxygen Delivery Room Air Weakness - Medical Records Medical records reviewed: Yes I reviewed the patient's medical records. - Lab Data Lab results reviewed: Yes I reviewed the patient's lab results. Lab results narrative: Laboratory Last Values WBC 6.7 K/mcL (4.3-11.1) 05/02/17 22: RBC 2.88 M/mcL (3.82-4.97) L 05/02/17 22: Hgb 7.3 g/dL (11.5-15.4) L 05/02/17 22: Hct 24.1 % (35.3-44.9) L 05/02/17 22: MCV 83.7 fL (83.0-100.0) 05/02/17 22: MCH 25.3 pg (28.0-33.3) L 05/02/17 22: MCHC 30.3 g/dL (31.6-35.5) L 05/02/17 22:29 RDW 16.2 % (11.5-14.5) H 05/02/17 22:29 Plt Count 316 K/mcL (140-400) 05/02/17 22:29 MPV 10.0 fL (9.4-12.4) 05/02/17 22: Immature Gran % 0.7 % (0-4) 05/02/17 22: Seg Neutrophils % 79.9 % 05/02/17 22: Lymphocytes % 7.8 % 05/02/17 22: Monocytes % 11.2 % 05/02/17 22:29 Eosinophils % 0.4 % 05/02/17 22: Basophils % 0.0 % 05/02/17 22:29 Neutrophils # 5.3 K/mcL (1.6-8.9) 05/02/17 22: Lymphocytes # 0.5 K/mcL (0.6-4.6) L 05/02/17 22: Monocytes # 0.8 K/mcL (0.0-1.3) 05/02/17: Eosinophils # 0.0 K/mcL (0.0-0.6) 05/02/17: Basophils # 0.0 K/mcL (0.0-0.2) 05/02/17: PT 22.7 Seconds (9.4-12.1) H 05/02/17: INR 2.1 05/02/17: APTT 77.1 Seconds (26.0-36.0) H 05/02/17: Sodium 139 mEq/L (136-145) 05/02/17: Potassium 3.4 mEq/L (3.5-4.5) L 05/02/17: Chloride 103 mEq/L (98-109) 05/02/17: Carbon Dioxide 24 mEq/L (19-29) 05/02/17: BUN 11 mg/dL (7-20) 05/02/17: Creatinine 0.86 mg/dL (0.57-1.11) 05/02/17: Est GFR ( Amer) > 60 (> 60) 05/02/17: Est GFR (Non-Af Amer) > 60 (> 60) 05/02/17: BUN/Creatinine Ratio 13 (6-26) 05/02/17: Glucose 138 mg/dL (70-99) H 05/02/17: Calculated Osmolality 290 (280-300) 05/02/17: Calcium 9.8 mg/dL (8.6-10.8) 05/02/17: Total Bilirubin 0.3 mg/dL (0.2-1.2) 05/02/17: AST 9 Units/L (5-34) 05/02/17: ALT 6 Units/L (0-55) 05/02/17: Alkaline Phosphatase 92 Units/L (38-126) 05/02/17: Troponin I 0.01 ng/mL (0-0.03) 06/20/17 22:29 Serum Total Protein 6.7 g/dL (6.0-8.3) 05/02/17 22:29 Albumin 3.0 g/dL (3.5-5.0) L 05/02/17 22:29 Globulin 3.7 g/dL (2.4-3.5) H 05/02/17 22:29 Albumin/Globulin Ratio 0.8 (1.1-2.2) L 05/02/17 22:29 Urine Color Yellow (Yellow) 05/02/17 22:48 Urine Clarity Clear (Clear) 05/02/17 22:48 Urine pH 6.5 pH Units (5.0-8.0) 05/02/17 22:48 Ur Specific [place] 1.013 (1.010-1.025) 05/02/17 22:48 Urine Protein Negative mg/dL (Neg-Trace) 05/02/17 22:48 Urine Glucose (UA) Normal mg/dL (Normal) 05/02/17 22:48 Urine Ketones Negative mg/dL (Negative) 05/02/17 22:48 Urine Blood Negative (Negative) 05/02/17 22:48 Urine Nitrite Negative (Negative) 05/02/17 22:48 Urine Bilirubin Negative (Negative) 05/02/17 22:48 Urine Urobilinogen Normal mg/dL (Normal) 05/02/17 22:48 Ur Leukocyte Esterase Moderate (Negative) H 05/02/17 22:48 Urine Microscopic RBC 0-3 per hpf (0-3) 05/02/17 22:48 Urine Microscopic WBC 5-15 per hpf (0-3) H 05/02/17 22:48 Ur Squamous Epith Cells Many per lpf (None-Few) H 05/02/17 22:48 Urine Bacteria None Seen per hpf (None-Few) 05/02/17 22:48 Hyaline Casts None Seen per lpf (None-Few) 05/02/17 22:48 Ur Culture Indicated? YES (NO) A 05/02/17 22:48 Blood Type O POSITIVE 05/02/17 22:29 Antibody Screen NEGATIVE 05/02/17 22:29 Result diagrams: 05/02/17 22:29 05/02/17 22:29 Lab Results 05/02/17 05/02/17 05/02/17 Range/Units 22:29 22:29 22:29 WBC 6.7 (4.3-11.1) K/mcL RBC 2.88 L (3.82-4.97) M/mcL Hgb 7.3 L (11.5-15.4) g/dL Hct 24.1 L (35.3-44.9) % MCV 83.7 (83.0-100.0) fL MCH 25.3 L (28.0-33.3) pg MCHC 30.3 L (31.6-35.5) g/dL RDW 16.2 H (11.5-14.5) % Plt Count 316 (140-400) K/mcL MPV 10.0 (9.4-12.4) fL Immature Gran % 0.7 (0-4) % Seg Neutrophils % 79.9 % Lymphocytes % 7.8 % Monocytes % 11.2 % Eosinophils % 0.4 % Basophils % 0.0 % Neutrophils # 5.3 (1.6-8.9) K/mcL Lymphocytes # 0.5 L (0.6-4.6) K/mcL Monocytes # 0.8 (0.0-1.3) K/mcL Eosinophils # 0.0 (0.0-0.6) K/mcL Basophils # 0.0 (0.0-0.2) K/mcL PT 22.7 H (9.4-12.1) Seconds INR 2.1 APTT 77.1 H (26.0-36.0) Seconds Sodium 139 (136-145) mEq/L Potassium 3.4 L (3.5-4.5) mEq/L Chloride 103 (98-109) mEq/L Carbon Dioxide 24 (19-29) mEq/L BUN 11 (7-20) mg/dL Creatinine 0.86 (0.57-1.11) mg/dL Est GFR ( Amer) > 60 (> 60) Est GFR (Non-Af Amer) > 60 (> 60) BUN/Creatinine Ratio 13 (6-26) Glucose 138 H (70-99) mg/dL Calculated Osmolality 290 (280-300) Calcium 9.8 (8.6-10.8) mg/dL Total Bilirubin 0.3 (0.2-1.2) mg/dL AST 9 (5-34) Units/L ALT 6 (0-55) Units/L Alkaline Phosphatase 92 (38-126) Units/L Troponin I (0-0.03) ng/mL Serum Total Protein 6.7 (6.0-8.3) g/dL Albumin 3.0 L (3.5-5.0) g/dL Globulin 3.7 H (2.4-3.5) g/dL Albumin/Globulin Ratio 0.8 L (1.1-2.2) Urine Color (Yellow) Urine Clarity (Clear) Urine pH (5.0-8.0) pH Units Ur Specific [place] (1.010-1.025) Urine Protein (Neg-Trace) mg/dL Urine Glucose (UA) (Normal) mg/dL Urine Ketones (Negative) mg/dL Urine Blood (Negative) Urine Nitrite (Negative) Urine Bilirubin (Negative) Urine Urobilinogen (Normal) mg/dL Ur Leukocyte Esterase (Negative) Urine Microscopic RBC (0-3) per hpf Urine Microscopic WBC (0-3) per hpf Ur Squamous Epith Cells (None-Few) per lpf Urine Bacteria (None-Few) per hpf Hyaline Casts (None-Few) per lpf Ur Culture Indicated? (NO) Blood Type Antibody Screen 05/02/17 05/02/17 05/02/17 Range/Units 22:29 22:29 22:48 WBC (4.3-11.1) K/mcL RBC (3.82-4.97) M/mcL Hgb (11.5-15.4) g/dL Hct (35.3-44.9) % MCV (83.0-100.0) fL MCH (28.0-33.3) pg MCHC (31.6-35.5) g/dL RDW (11.5-14.5) % Plt Count (140-400) K/mcL MPV (9.4-12.4) fL Immature Gran % (0-4) % Seg Neutrophils % % Lymphocytes % % Monocytes % % Eosinophils % % Basophils % % Neutrophils # (1.6-8.9) K/mcL Lymphocytes # (0.6-4.6) K/mcL Monocytes # (0.0-1.3) K/mcL Eosinophils # (0.0-0.6) K/mcL Basophils # (0.0-0.2) K/mcL PT (9.4-12.1) Seconds INR APTT (26.0-36.0) Seconds Sodium (136-145) mEq/L Potassium (3.5-4.5) mEq/L Chloride (98-109) mEq/L Carbon Dioxide (19-29) mEq/L BUN (7-20) mg/dL Creatinine (0.57-1.11) mg/dL Est GFR ( Amer) (> 60) Est GFR (Non-Af Amer) (> 60) BUN/Creatinine Ratio (6-26) Glucose (70-99) mg/dL Calculated Osmolality (280-300) Calcium (8.6-10.8) mg/dL Total Bilirubin (0.2-1.2) mg/dL AST (5-34) Units/L ALT (0-55) Units/L Alkaline Phosphatase (38-126) Units/L Troponin I 0.01 (0-0.03) ng/mL Serum Total Protein (6.0-8.3) g/dL Albumin (3.5-5.0) g/dL Globulin (2.4-3.5) g/dL Albumin/Globulin Ratio (1.1-2.2) Urine Color Yellow (Yellow) Urine Clarity Clear (Clear) Urine pH 6.5 (5.0-8.0) pH Units Ur Specific [place] 1.013 (1.010-1.025) Urine Protein Negative (Neg-Trace) mg/dL Urine Glucose (UA) Normal (Normal) mg/dL Urine Ketones Negative (Negative) mg/dL Urine Blood Negative (Negative) Urine Nitrite Negative (Negative) Urine Bilirubin Negative (Negative) Urine Urobilinogen Normal (Normal) mg/dL Ur Leukocyte Esterase Moderate H (Negative) Urine Microscopic RBC 0-3 (0-3) per hpf Urine Microscopic WBC 5-15 H (0-3) per hpf Ur Squamous Epith Cells Many H (None-Few) per lpf Urine Bacteria None Seen (None-Few) per hpf Hyaline Casts None Seen (None-Few) per lpf Ur Culture Indicated? YES A (NO) Blood Type O POSITIVE Antibody Screen NEGATIVE - Radiology Data Radiology results reviewed: Yes I reviewed the patient's radiology results. Chest X-Ray 05/02/17 22:12 IMPRESSION: Stable portable study. D/ / Analia Yadav Cha, MD / Analia Yadav Cha, MD Interpreting Provider: Analia Yadav Cha, MD - EKG Data EKG attestation: Yes I reviewed and interpreted this EKG. EKG results narrative: EKG reviewed by Dr. Wells as well. EKG shows a sinus rhythm at a rate of [address] depression. No ectopy noted. No STEMI. Attestation Statement - Attestation Attestation: I examined this patient and my medical decision-making was reviewed with the CHILDREN'S TUTOR/PA/Advanced Practice Nurse/Resident Physician. I agree with the documented findings, disposition and treatment plan as described except to the extent set forth below. Face to face time provided Patient presents feeling generally weak. She is anemic. This appears acute on chronic. She recently required transfusions at the direction of the oncologist. She appears in no acute distress on exam
[2017-05-02 22:40] LABS: Eosinophils % 0.4 %; Hematocrit 24.1 % (35.3-44.9); Immature Granulocytes % 0.7 % (0-4); Lymphocytes # 0.5 K/mcL (0.6-4.6); Lymphocytes % 7.8 %; Mean Corpuscular HGB Conc 30.3 g/dL (31.6-35.5); Mean Corpuscular Hemoglobin 25.3 pg (28.0-33.3); Mean Corpuscular Volume 83.7 fL (83.0-100.0); Monocytes # 0.8 K/mcL (0.0-1.3); Monocytes % 11.2 %; Neutrophils # 5.3 K/mcL (1.6-8.9); Platelet Count 316 K/mcL (140-400); Red Blood Count 2.88 M/mcL (3.82-4.97); Red Cell Distribution Width 16.2 % (11.5-14.5); Segmented Neutrophils % 79.9 %
[2017-05-02 22:48] LABS: INR 2.1; Prothrombin Time 22.7 Seconds (9.4-12.1)
[2017-05-02 22:51] LABS: Activated Partial Thrombo Time 77.1 Seconds (26.0-36.0)
[2017-05-02 22:55] LABS: Alanine Aminotransferase 6 Units/L (0-55); Albumin/Globulin Ratio 0.8 (1.1-2.2); Alkaline Phosphatase 92 Units/L (38-126); Aspartate Amino Transferase 9 Units/L (5-34); BUN/Creatinine Ratio 13 (6-26); Bilirubin,Total 0.3 mg/dL (0.2-1.2); Blood Urea Nitrogen 11 mg/dL (7-20); Calcium 9.8 mg/dL (8.6-10.8); Carbon Dioxide 24 mEq/L (19-29); Chloride 103 mEq/L (98-109); Globulin 3.7 g/dL (2.4-3.5); Glucose 138 mg/dL (70-99); Osmolality,Calculated 290 (280-300); Potassium 3.4 mEq/L (3.5-4.5); Sodium 139 mEq/L (136-145); Total Protein 6.7 g/dL (6.0-8.3); eGFR For African Americans > 60 (> 60); eGFR For Non-African Americans > 60 (> 60)
[2017-05-02 22:57] LABS: Hemoglobin 7.3 g/dL (11.5-15.4)
[2017-05-02 22:59] LABS: Bilirubin,Urine Negative (Negative); Blood,Urine Negative (Negative); Color,Urine Yellow (Yellow); Glucose,Urine (UA) Normal (Normal); Ketones,Urine Negative (Negative); Leukocyte Esterase,Urine Moderate (Negative); Nitrite,Urine Negative (Negative); PH,Urine 6.5 pH Units (5.0-8.0); Protein,Urine Negative (Neg-Trace); Specific Gravity,Urine 1.013 (1.010-1.025); Urobilinogen,Urine Normal (Normal)
[2017-05-02 23:02] LABS: Bacteria,Urine None Seen per hpf (None-Few); Hyaline Casts,Urine None Seen per lpf (None-Few); RBC,Urine 0-3 per hpf (0-3); Squamous Epithelial Cell,Urine Many per lpf (None-Few)
[2017-05-02 23:03] LABS: Clarity,Urine Clear (Clear)
[2017-05-03] MEDS ORDERED: Ondansetron 4 MG/2 ML VIAL IVP PRN (00:10)
[2017-05-03] MEDS ORDERED: Naloxone 0.4 MG/ML INJ IVP PRN (00:10)
[2017-05-03] MEDS ORDERED: Acetaminophen 325 MG TABLET PO PRN (00:10)
[2017-05-03] MEDS ORDERED: Dextrose Gel 15 GM PO PRN ×2 (00:16)
[2017-05-03] MEDS ORDERED: *HR* Dextrose 50 % in Water (Syg) 50 ML SYRINGE IVP PRN (00:16)
[2017-05-03] MEDS ORDERED: D5% in Water 1,000 ML IVC PRN (00:16)
[2017-05-03] MEDS ORDERED: 0.9 % Sodium Chloride 500 ML ONE (00:43)
--- NOTE | 2017-05-03 01:47 | Internal Med History&Physical ---
Date of Encounter: 05/03/17 Time of Encounter: 01:00 Assessment and Plan (1) Symptomatic anemia Current visit: No Status: Acute Patient presents with symptomatic anemia. Acute on chronic, secondary to metastatic cancer and chemotherapy. She complains of fatigue and generalized weakness. H&H is 7.3 and 24.1. She is being transfused 1 unit packed red cells. Repeat H&H in a.m. Baseline hemoglobin is around 8.5. Oncology consult. (2) Lung cancer Current visit: No Status: Chronic With metastatic disease. On chemotherapy. Follows up with Dr. Lyn. Next chemotherapy is due on May 17. Oncology consult Qualifiers: Laterality: right Lung location: upper lobe of lung Qualified Code(s): C34.11 - Malignant neoplasm of upper lobe, right bronchus or lung (3) COPD (chronic obstructive pulmonary disease) Current visit: No Status: Chronic Chronic, stable, not in exacerbation Qualifiers: COPD type: unspecified COPD Qualified Code(s): J44.9 - Chronic obstructive pulmonary disease, unspecified (4) Chronic pain Current visit: No Status: Chronic likely Secondary to metastatic disease Qualifiers: Chronic pain type: due to neoplasm Qualified Code(s): G89.3 - Neoplasm related pain (acute) (chronic) (5) Antiphospholipid antibody syndrome Current visit: No Status: Chronic Chronic, on anticoagulation, INR is therapeutic (6) Counseling regarding advanced care planning and goals of care Current visit: No Status: Acute Patient clearly states that she wants to be a DNR/DNI status. She states she has had this discussion even on previous admission. Palliative care has been consulted Internal Medicine - H&P: HPI Admitted From: Emergency Dept History of present illness: Ms. Mars is a 71 year old female with past medical history of breast cancer, metastatic lung cancer, CVA, DVT, diabetes, GI bleed, hypertension, hyperlipidemia, antiphospholipid antibody syndrome on anticoagulation and history of TIA. She presents to the ED with complaints of generalized weakness. Patient states some she has had increasing fatigue and generalized weakness with mild shortness of breath over the past 3-4 days. Patient states that she felt similar symptoms when she was admitted here in December. Patient states she decided to come into the ED because she thought her blood count was low. Patient denies chest pain denies shortness of breath denies nausea or vomiting or bowel pain or diarrhea or fever or chills. She denies hemoptysis no hematemesis or blood in stool. Patient does have lung cancer and is undergoing chemotherapy. Her next chemotherapy is on May 17. She has been following up with her oncologist regularly. Patient does have metastasis to her right hip. Patient has required multiple transfusions of packed red cells in the past. Today her H&H is 7.3 and 24.1. She will require 1 unit blood transfusion. On examination patient is awake and alert. Not in any distress. She is able to provide all history. She has no other acute complaints at present. Past Med Surg Social Fam HX - Past Medical History Medical history: arthritis, cancer, CVA, DVT, diabetes, GERD, GI bleed, hyperlipidemia, hypertension, malignancy, osteoporosis, TIA, other Psychiatric history: anxiety, depression, other - Past Surgical History Surgical History: appendectomy, breast surgery, cancer surgery, cataract, cholecystectomy, hysterectomy, orthopedic, other, YANET/BSO, other (Surgery 2 at ages 1 and 10. Total abdominal bilateral salpingo-oophorectomy and hysterectomy 1977. Appendectomy. Laparoscopic cholecystectomy 1999. Cardiac catheterization 1998. Pre-needle localization, excisional biopsy left breast 1996-benign. Shoulder replacement surgeries 2009 2010. PML/excision carcinoma right breast with pathology analysis margins (partial mastectomy) and right axillary node biopsy 2014. Colonoscopy.) - Social History Smoking Status: Former smoker Smokeless Tobacco Status: No Alcohol use: none Drug use: none - Family History Mother Living Status: Age at : 75 Cause of : cancer Hx Family Cancer: Yes Father Living Status: Cause of : heart problems Internal Medicine - H&P: Meds RX: Albuterol Sulfate [Albuterol Inhaler] 2 puff IH Q6HR PRN 06/12/15 [History] RX: Atorvastatin [Lipitor] 40 mg PO HS 06/12/15 [History] RX: LevETIRAcetam [Keppra] 500 mg PO BID 06/12/15 [History] RX: Ondansetron HCl [Zofran] 8 mg PO Q8H PRN 06/12/15 [History] RX: Warfarin [Coumadin] 5 mg PO 1800 06/12/15 [History] RX: Denosumab [Xgeva] 120 mg SQ AD #06/22/15 [Rx] RX: Meclizine [Antivert] 25 mg PO TID PRN #30 tablet 02/29/16 [Rx] RX: Cholecalciferol (D-3) [Vitamin D] 1,000 unit PO DAILY #90 tablet 06/22/16 [ Rx] RX: Calcium Carbonate/Vitamin D3 [Calcium 600-Vit D3 800 Tablet] 2 each PO DAILY #180 tablet 09/29/16 [Rx] RX: Benzonatate [Tessalon] 100 mg PO TID #90 capsule 11/14/16 [Rx] RX: Folic Acid 1 mg PO DAILY #90 tablet 11/14/16 [Rx] RX: Anastrozole [Arimidex] 1 mg PO DAILY 12/13/16 [History] Blood-Glucose Meter [Blood Glucose Monitor] 1 each ACHS 30 Days 12/17/16 [Rx] RX: Saline Nasal [place] [[place] Nasal [place]] 2 spray NS QID PRN 30 Days 12/17/16 [ Rx] RX: Budesonide/Formoterol 160/4.5 [Symbicort 160/4.5] 1 puff IH BIDR #3 hfa.aer.ad 01/17/17 [Rx] RX: Ferrous Sulfate 325 mg PO DAILY #90 tablet 01/17/17 [Rx] Potassium Chloride [Klor-Con] 20 meq PO DAILY 02/21/17 [History] RX: Sertraline [Zoloft] 150 mg PO DAILY #45 tablet 03/01/17 [Rx] Triamterene/Hydrochlorothiazid [Dyazide 37.5-25 Capsule] 1 each PO DAILY #30 capsule 03/01/17 [Rx] RX: Omeprazole [PriLOSEC] 40 mg PO DAILY #30 capsule.dr 03/09/17 [Rx] Magic Mouthwash [Magic Mouthwash BLM] 10 ml PO QID PRN #240 ml 03/21/17 [Rx] RX: Lancets/Blood Glucose Strips [Fora [id number] Strp-Lnct] 1 each ACHS 30 Days 04/12/17 [Rx] RX: metFORMIN [Glucophage] 2 tab PO DAILY #30 tablet 04/12/17 [Rx] RX: Dexamethasone [Decadron] 8 mg PO BID #12 tab 04/14/17 [Rx] RX: LORazepam [Ativan] 1 mg PO Q6H PRN #60 tablet 04/18/17 [Rx] RX: OxyCODONE/APAP 10/325 [Percocet 10/325 MG] 1 each PO Q6HR PRN #90 tablet 04/29 [Rx] Allergies Cephalosporins Allergy (Verified 12/20/16 09:00) See Comments codeine Allergy (Verified 12/20/16 09:00) See Comments lisinopril Allergy (Verified 12/20/16 09:00) See Comments metoclopramide [From Reglan] Allergy (Verified 12/20/16 09:00) Confusion Penicillins Allergy (Verified 12/20/16 09:00) Hives Sulfa (Sulfonamide Antibiotics) Allergy (Verified 12/20/16 09:00) See Comments All Systems PM: A 10-system review of systems was performed and is negative for pertinent findings except as documented above in the HPI. - Constitutional Constitutional: fatigue, weakness, no chills - Cardiovascular Cardiovascular ROS IM: no chest pain, no dyspnea on exertion, no lightheadedness , no palpitations - Respiratory Respiratory: no cough, no dyspnea, no wheezing, no chest congestion - Gastrointestinal Gastrointestinal: no abdominal pain, no loose stools, no vomiting - Musculoskeletal Musculoskeletal ROS IM: arthralgias - Neurological Neurological ROS: no abnormal gait, no abnormal speech, no confusion, no dizziness, no focal weakness, no loss of vision - Constitutional Vitals: Temp Pulse Resp BP Pulse Ox 99.4 F 75 16 175/69 96 05/03/17 01:41 05/03/17 01:41 05/03/17 01:41 05/03/17 01:41 05/03/17 01:41 General appearance: Present: A&O X 3, pleasant, underweight, answers questions appropriately - Head Head exam: Present: atraumatic - ENT ENT exam: Present: mucous membranes moist - Neck Neck exam general surgery: Present: supple - Respiratory Respiratory exam: Present: CTAB. Absent: rhonchi, wheezes - Cardiovascular Cardiovascular exam: Present: RRR, +S1, +S2 - GI/Abdominal GI/Abdominal exam: Present: soft. Absent: distended, guarding, tenderness - Extremities Exam Extremities exam: Present: radial pulses palpable and symetrical. Absent: cyanotic, pedal edema - Neurological Exam Neurological exam: Present: alert, oriented X3, no focal deficits Internal Med - H&P Results - Labs CBC & Chem 7: 05/02/17 22:29 05/02/17 22:29
[2017-05-03 05:14] LABS: Hemoglobin 8.1 g/dL (11.5-15.4); Mean Corpuscular HGB Conc 31.2 g/dL (31.6-35.5); Mean Corpuscular Hemoglobin 26.4 pg (28.0-33.3); Mean Corpuscular Volume 84.7 fL (83.0-100.0); Mean Platelet Volume 9.8 fL (9.4-12.4); Platelet Count 313 K/mcL (140-400); Red Blood Count 3.07 M/mcL (3.82-4.97); Red Cell Distribution Width 16.1 % (11.5-14.5)
[2017-05-03 05:40] LABS: BUN/Creatinine Ratio 13 (6-26); Blood Urea Nitrogen 11 mg/dL (7-20); Calcium 9.4 mg/dL (8.6-10.8); Carbon Dioxide 26 mEq/L (19-29); Chloride 103 mEq/L (98-109); Glucose 130 mg/dL (70-99); Magnesium 1.6 mg/dL (1.6-2.6); Osmolality,Calculated 287 (280-300); Potassium 3.6 mEq/L (3.5-4.5); Sodium 138 mEq/L (136-145); eGFR For African Americans > 60 (> 60); eGFR For Non-African Americans > 60 (> 60)
[2017-05-03] MEDS ORDERED: Insulin LISPRO 300 UNITS/3 ML VIAL SQ SCH ×2 (06:00→08:00)
[2017-05-03 07:48] VITALS: BP 171/68
[2017-05-03] MEDS ORDERED: VITAMIN D3 PO SCH (09:00)
[2017-05-03] MEDS ORDERED: Folic Acid 1 MG TABLET PO SCH (09:00)
[2017-05-03] MEDS ORDERED: Famotidine 20 MG TABLET PO SCH (09:00)
[2017-05-03] MEDS ORDERED: CALCIUM CARBONATE PO SCH (09:00)
--- NOTE | 2017-05-03 09:45 | Oncology Inp Consult Note ---
Date of Encounter: 05/03/17 Time of Encounter: 08:20 Assessment and Plan (1) Symptomatic anemia Status: Acute Assessment and plan: Ms. Mars appears to have multifactorial anemia. By labs in March, there is a component of iron deficiency. In addition, she is on Alimta which also can cause anemia. She has received 1 unit of packed blood cells and her symptoms have resolved. I think is reasonable for her to be discharged and follow-up with Dr. Lyn scheduled in 2 weeks. I will discuss the case with him make sure that repeat iron studies are obtained for his review. Thank you for the update of the care of this patient. Please call [phone] with any concerns or questions (2) Lung cancer Status: Chronic Assessment and plan: She will continue on Alimta maintenance per her primary oncologist as an outpatient. No change in therapy indicated at current Qualifiers: Laterality: right Lung location: upper lobe of lung Qualified Code(s): C34.11 - Malignant neoplasm of upper lobe, right bronchus or lung - Data of Consult Requesting Physician: Araceli Porter CNP Primary Care Provider: PCP NO - Consult Narrative Reason for consult: Anemia. Patient known to you History of present illness: Ms. Mars is a 71 year old female who is under the care of my partner, Dr. Lyn, for right breast cancer treated with surgery and adjuvant armidex as well as metastatic adenocarcinoma of the right lung. She initially received 4 cycles of carboplatin and Alimta completed in 06/02/2015, followed by consolidative XRT to the primary and remains on Alimta maintenance therapy which is ongoing. Most recent restaging scans earlier this month were stable. Patient has had issues with ongoing anemia. She had epistaxis in December and required transfusion. Labs dated 04/14/2017 revealed a white count 5.5, hemoglobin 8.5 low count 421,000 iron studies 03/21/2017 revealed iron of 21 transferrin saturation 5% and a ferritin of 68. Creatinine is 0.9. Serum protein pheresis at that juncture was negative for paraproteinemia. Over the past 1-2 weeks, she has had issues with increasing fatigue and weakness. A fall approximately 1 week ago secondary to lightheadedness when she stood up. Secondary symptoms, she presented to the emergency department where CBC revealed a hemaglobin 7.3. Admitted and transfuse one pack per blood cells with posttransfusion CBC showing hemoglobin of 8.1. She denies any bleeding symptoms currently. No epistaxis, hemoptysis, melena, hematochezia or hematuria or hematemesis. She feels much better following her transfusion Past Med Surg Social Fam HX - Past Medical History Medical history: arthritis, cancer, CVA, DVT, diabetes, GERD, GI bleed, hyperlipidemia, hypertension, malignancy, osteoporosis, TIA, other Psychiatric history: anxiety, depression, other - Past Surgical History Surgical History: appendectomy, breast surgery, cancer surgery, cataract, cholecystectomy, hysterectomy, orthopedic, other, YANET/BSO, other (Surgery 2 at ages 1 and 10. Total abdominal bilateral salpingo-oophorectomy and hysterectomy 1977. Appendectomy. Laparoscopic cholecystectomy 1999. Cardiac catheterization 1998. Pre-needle localization, excisional biopsy left breast 1996-benign. Shoulder replacement surgeries 2009 2010. PML/excision carcinoma right breast with pathology analysis margins (partial mastectomy) and right axillary node biopsy 2014. Colonoscopy.) - Social History Smoking Status: Former smoker Smokeless Tobacco Status: No Alcohol use: none Drug use: none - Family History Mother Living Status: Age at : 75 Cause of : cancer Hx Family Cancer: Yes Father Living Status: Cause of : heart problems Medications and Allergies Albuterol Sulfate [Albuterol Inhaler] 2 puff IH Q6HR PRN 06/12/15 [History] Atorvastatin [Lipitor] 40 mg PO HS 06/12/15 [History] LevETIRAcetam [Keppra] 500 mg PO BID 06/12/15 [History] Ondansetron HCl [Zofran] 8 mg PO Q8H PRN 06/12/15 [History] Warfarin [Coumadin] 5 mg PO 1800 06/12/15 [History] Denosumab [Xgeva] 120 mg SQ AD #6 06/22/15 [Rx] Meclizine [Antivert] 25 mg PO TID PRN #30 tablet 02/29/16 [Rx] Cholecalciferol (D-3) [Vitamin D] 1,000 unit PO DAILY #90 tablet 06/22/16 [Rx] Calcium Carbonate/Vitamin D3 [Calcium 600-Vit D3 800 Tablet] 2 each PO DAILY # 180 tablet 09/29/16 [Rx] Benzonatate [Tessalon] 100 mg PO TID #90 capsule 11/14/16 [Rx] Folic Acid 1 mg PO DAILY #90 tablet 11/14/16 [Rx] Anastrozole [Arimidex] 1 mg PO DAILY 12/13/16 [History] Blood-Glucose Meter [Blood Glucose Monitor] 1 each ACHS 30 Days 12/17/16 [Rx] Saline Nasal [place] [[place] Nasal [place]] 2 spray NS QID PRN 30 Days 12/17/16 [Rx] Budesonide/Formoterol 160/4.5 [Symbicort 160/4.5] 1 puff IH BIDR #3 hfa.aer.ad 01/17/17 [Rx] Ferrous Sulfate 325 mg PO DAILY #90 tablet 01/17/17 [Rx] Potassium Chloride [Klor-Con] 20 meq PO DAILY 02/21/17 [History] Sertraline [Zoloft] 150 mg PO DAILY #45 tablet 03/01/17 [Rx] Triamterene/Hydrochlorothiazid [Dyazide 37.5-25 Capsule] 1 each PO DAILY #30 capsule 03/01/17 [Rx] Omeprazole [PriLOSEC] 40 mg PO DAILY #30 capsule. 03/09/17 [Rx] Magic Mouthwash [Magic Mouthwash BLM] 10 ml PO QID PRN #240 ml 03/21/17 [Rx] Lancets/Blood Glucose Strips [Fora [id number] Strp-Lnco] 1 each [facility] 30 Days 04/12/17 [Rx] metFORMIN [Glucophage] 2 tab PO DAILY #30 tablet 04/12/17 [Rx] Dexamethasone [Decadron] 8 mg PO BID #12 tab 04/14/17 [Rx] LORazepam [Ativan] 1 mg PO Q6H PRN #60 tablet 04/18/17 [Rx] OxyCODONE/APAP 10/325 [Percocet 10/325 MG] 1 each PO Q6HR PRN #90 tablet [Rx] Allergies Cephalosporins Allergy (Verified 12/20/16 09:00) See Comments codeine Allergy (Verified 12/20/16 09:00) See Comments lisinopril Allergy (Verified 12/20/16 09:00) See Comments metoclopramide [From Reglan] Allergy (Verified 12/20/16 09:00) Confusion Penicillins Allergy (Verified 12/20/16 09:00) Hives Sulfa (Sulfonamide Antibiotics) Allergy (Verified 12/20/16 09:00) See Comments All systems: reviewed and no additional remarkable complaints except as stated Oncology - Exam - Constitutional Vitals: Temp Pulse Resp BP Pulse Ox 97.7 F 75 16 171/68 96 05/03/17 07:47 05/03/17 07:47 05/03/17 07:47 05/03/17 07:47 05/03/17 07:47 - Head Head exam: Present: atraumatic, normal inspection, normocephalic - Eye Eye exam: Present: conjuntiva pink, sclera anicteric - ENT ENT exam: Present: mucous membranes moist, normal oropharynx - Neck Neck exam: Present: full ROM, normal inspection - Respiratory Respiratory exam: Present: CTAB - Cardiovascular Cardiovascular exam: Present: RRR - GI/Abdominal GI/Abdominal exam: Present: normal bowel sounds, soft - Extremities Exam Extremities exam: Present: normal inspection - Neurological Exam Neurological exam: Present: CN II-XII intact, oriented X3 Oncology - Results - Labs Labs: Short CBC 05/03/17 Range/Units 05:00 WBC 5.8 (4.3-11.1) K/mcL Hgb 8.1 L (11.5-15.4) g/dL Hct 26.0 L (35.3-44.9) % Plt Count 313 (140-400) K/mcL BMP 05/03/17 05:00 Sodium 138 Potassium 3.6 Chloride 103 Carbon Dioxide 26 BUN 11 Creatinine 0.86 Glucose 130 H Calcium 9.4 Consult Discharge Plan - Plan Referrals: NO,PCP [Primary Care Provider] -
[2017-05-03] MEDS ORDERED: Budesonide/Formoterol 160/4.5 MDI IH SCH (10:00)
--- NOTE | 2017-05-03 10:27 | Discharge Summary ---
Date of Encounter: 05/03/17 Time of Encounter: 10:23 - Discharge Diagnosis (1) Anemia Priority: Primary Status: Acute Comments: Chronic anemia multifactorial, no evidence of acute blood loss Qualifiers: Iron deficiency anemia type: unspecified iron deficiency Qualified Code(s) : D50.9 - Iron deficiency anemia, unspecified (2) Metastatic breast cancer Priority: Secondary Status: Chronic (3) Diabetes type 2, uncontrolled Priority: Secondary Status: Acute Qualifiers: Diabetes mellitus complication status: with hyperglycemia Diabetes mellitus penitentiary insulin use: without terminal carman use Qualified Code(s): E11.65 - Type 2 diabetes mellitus with hyperglycemia (4) Symptomatic anemia Priority: Primary Status: Acute (5) Lung cancer Priority: Secondary Status: Chronic Comments: With metastatic disease. On chemotherapy. Follows up with Dr. Lyn. Next chemotherapy is due on May 17. Qualifiers: Laterality: right Lung location: upper lobe of lung Qualified Code(s): C34.11 - Malignant neoplasm of upper lobe, right bronchus or lung (6) Antiphospholipid antibody syndrome Priority: Secondary Status: Chronic Comments: Continue Coumadin, INR was therapeutic at 2.1 (7) COPD (chronic obstructive pulmonary disease) Priority: Secondary Status: Chronic Comments: Stable, no exacerbation Qualifiers: COPD type: unspecified COPD Qualified Code(s): J44.9 - Chronic obstructive pulmonary disease, unspecified (8) Breast cancer, right breast Priority: Secondary Status: Acute Qualifiers: Breast location: upper outer quadrant of breast Patient sex: female Qualified Code(s): C50.411 - Malignant neoplasm of upper-outer quadrant of right female breast - Discharge Medications Home Medications: Albuterol Sulfate [Albuterol Inhaler] 2 puff IH Q6HR PRN 06/12/15 [History] Atorvastatin [Lipitor] 40 mg PO HS 06/12/15 [History] LevETIRAcetam [Keppra] 500 mg PO BID 06/12/15 [History] Ondansetron HCl [Zofran] 8 mg PO Q8H PRN 06/12/15 [History] Warfarin [Coumadin] 5 mg PO 1800 06/12/15 [History] Denosumab [Xgeva] 120 mg SQ AD # / 06/22/15 [Rx] Meclizine [Antivert] 25 mg PO TID PRN #30 tablet 02/29/16 [Rx] Cholecalciferol (D-3) [Vitamin D] 1,000 unit PO DAILY #90 tablet 06/22/16 [Rx] Calcium Carbonate/Vitamin D3 [Calcium 600-Vit D3 800 Tablet] 2 each PO DAILY # 180 tablet 09/29/16 [Rx] Benzonatate [Tessalon] 100 mg PO TID #90 capsule 11/14/16 [Rx] Folic Acid 1 mg PO DAILY #90 tablet 11/14/16 [Rx] Anastrozole [Arimidex] 1 mg PO DAILY 12/13/16 [History] Blood-Glucose Meter [Blood Glucose Monitor] 1 each ACHS 30 Days 12/17/16 [Rx] Saline Nasal [place] [[place] Nasal [place]] 2 spray NS QID PRN 30 Days 12/17/16 [Rx] Budesonide/Formoterol 160/4.5 [Symbicort 160/4.5] 1 puff IH BIDR #3 hfa.aer.ad 01/17/17 [Rx] Ferrous Sulfate 325 mg PO DAILY #90 tablet 01/17/17 [Rx] Potassium Chloride [Klor-Con] 20 meq PO DAILY 02/21/17 [History] Sertraline [Zoloft] 150 mg PO DAILY #45 tablet 03/01/17 [Rx] Triamterene/Hydrochlorothiazid [Dyazide 37.5-25 Capsule] 1 each PO DAILY #30 capsule 03/01/17 [Rx] Omeprazole [PriLOSEC] 40 mg PO DAILY #30 capsule. 03/09/17 [Rx] Magic Mouthwash [Magic Mouthwash BLM] 10 ml PO QID PRN #240 ml 03/21/17 [Rx] Lancets/Blood Glucose Strips [Fora [id number] Strp-Lnct] 1 each ACHS 30 Days 04/12/17 [Rx] metFORMIN [Glucophage] 2 tab PO DAILY #30 tablet 04/12/17 [Rx] Dexamethasone [Decadron] 8 mg PO BID #12 tab 04/14/17 [Rx] LORazepam [Ativan] 1 mg PO Q6H PRN #60 tablet 04/18/17 [Rx] OxyCODONE/APAP 10/325 [Percocet 10/325 MG] 1 each PO Q6HR PRN #90 tablet [Rx] Allergies/Adverse Reactions: Allergies Cephalosporins Allergy (Verified 12/20/16 09:00) See Comments codeine Allergy (Verified 12/20/16 09:00) See Comments lisinopril Allergy (Verified 12/20/16 09:00) See Comments metoclopramide [From Reglan] Allergy (Verified 12/20/16 09:00) Confusion Penicillins Allergy (Verified 12/20/16 09:00) Hives Sulfa (Sulfonamide Antibiotics) Allergy (Verified 12/20/16 09:00) See Comments Date of admission: 05/03/17 00:10 Primary care physician: PCP NO Consults: 05/03/17 01:17 Consult to Oncology Hematology [CONS] Routine Consulting Provider: Morales Lyn Reason for Consult: anemia, lung cancer Call Completed: No 05/03/17 02:45 Consult to Palliative Care [CONS] Routine Comment: Consulting Provider: Palliative Care [place] Reason for Consult: Metastatic lung cancer, DNR/DNI status Call Completed: No - Patient Status Disposition: Home, Self-Care Condition: Fair Overall status at discharge: patient is progressing back to baseline - Discharge Instructions Follow Up With: NO,PCP [Primary Care Provider] - Additional Instructions: Follow with primary care physician within next 7 days. Follow with oncology within the next 2 weeks. - Diet and Activity Activity: increase activity as tolerated Diet: regular diet Hospital course: Ms. Mars is a 71 year old female with a past medical history of antiphospholipid syndrome on Coumadin, history of breast cancer and metastatic adenocarcinoma of the lung who is under the care of Dr. Lyn, for right breast cancer treated with surgery and adjuvant armidex as well as metastatic adenocarcinoma of the right lung. She initially received 4 cycles of carboplatin and Alimta completed in 06/02/2015, followed by consolidative XRT to the primary and remains on Alimta maintenance therapy which is ongoing. Most recent restaging scans earlier this month were stable. Patient has had issues with ongoing anemia. She had epistaxis in December and required transfusion. Labs dated 04/14/2017 revealed a white count 5.5, hemoglobin 8.5 low count 421,000 iron studies 03/21/2017 revealed iron of 21 transferrin saturation 5% and a ferritin of 68. Creatinine is 0.9. Serum protein pheresis at that juncture was negative for paraproteinemia. Over the past 1-2 weeks, she had issues with increasing fatigue and weakness. A fall approximately 1 week ago secondary to lightheadedness when she stood up. Secondary symptoms, she presented to the emergency department where CBC revealed a hemaglobin 7.3. Admitted and transfused one pack per blood cells with posttransfusion CBC showing hemoglobin of 8.1. She denied any bleeding symptoms currently. No epistaxis, hemoptysis, melena, hematochezia or hematuria or hematemesis. She feels much better following her transfusion, oncology was consulted, Dr. Almaraz agrees with the patient discharged. - Time Spent with Patient Total time spent providing and/or coordinating discharge services: Greater than 30 minutes (40 min) - Constitutional Vitals: Temp Pulse Resp BP Pulse Ox 97.7 F 75 16 171/68 96 05/03/17 07:47 05/03/17 07:47 05/03/17 07:47 05/03/17 07:47 05/03/17 07:47 General appearance: Present: A&O X 3, pleasant, underweight, answers questions appropriately - Head Head exam: Present: atraumatic, normocephalic - Eye Eye exam: Present: PERRL, conjuntiva pink, sclera anicteric Pupils: Present: PERRL - Neck Neck exam general surgery: Present: supple, trachea midline. Absent: lymphadenopathy Additional comments: Left upper chest Port-A-Cath - Respiratory Respiratory exam: Present: CTAB. Absent: accessory muscle use, rales, rhonchi, wheezes - Cardiovascular Cardiovascular exam: Present: RRR, +S1, +S2. Absent: diastolic murmur, gallop, rubs, systolic murmur - GI/Abdominal GI/Abdominal exam: Present: normal bowel sounds, soft, no peritoneal signs. Absent: distended, tenderness - Extremities Exam Extremities exam: Present: warm, radial pulses palpable and symetrical. Absent : calf tenderness, cyanotic, pedal edema - Neurological Exam Neurological exam: Present: CN II-XII intact, oriented X3, no focal deficits. Absent: pronater drift, facial droop, speech deficit - Skin Skin exam: Present: dry, intact
[2017-05-03 10:57] LABS: % Iron Saturation 7 % (15-50); Iron 23 mcg/dL (50-170); Transferrin 238 mg/dL (180-382)
[2017-05-03 11:46] LABS: Ferritin 91 ng/ml (5-204)
--- NOTE | 2017-05-03 17:52 | Electrocardiograph Report ---
[place] [id number] Test Date: 2017-05-02 Pat Name: Noemy Mars Department: [id number] Room: 3B54 Gender: F Visual Training Aide: : 1945 Requested By: Kuldip Lieberman Order Number: [id number] Reading MD: Figueroa Tee MD Measurements Intervals [place] Rate: 81 P: 79 VA: 144 QRS: 69 QRSD: 102 T: 63 QT: 381 QTc: 418 Interpretive Statements SINUS RHYTHM Electronically Signed On 05-03-2017 17:51:02 EDT by Figueroa Tee MD
== END 2017-05-03 11:35 | disposition home or self-care (01) | DRG 812 ==
LOC: 3BNU 21:50 → EMEROO 21:50 → 3BNU 23:53
PROVIDERS: ADMIT Family Medicine; ATTEND Registered Nurse